=== PATIENT | male | born 1980 | race African-American/Black ===

== ENCOUNTER 2017-01-25 20:18 | Inpatient (IN) ==
[2017-01-25] MEDS ORDERED: FUROSEMIDE 100 MG/10 ML VIAL IV STA (21:34)
[2017-01-25] MEDS ORDERED: ALBUTEROL/IPRATROPIUM 3 ML NEB RESP TX STA (21:34)
[2017-01-25] MEDS ORDERED: ONDANSETRON 4 MG/2 ML VIAL IM STA (21:34)
--- NOTE | 2017-01-25 21:38 | EKG Report ---
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
--- NOTE | 2017-01-25 21:38 | Emergency Department Note ---
Arrival - Arrival Chief Complaint: Shortness of Breath Stated Complaint: sob ED Nursing Triage Note: pt to triage c.o sob since last week. pt was seen in [place] last week. pt states he was told he had chf and started on lasix. pt has bilateral ext swelling . pt states he is unable to lye flat Mode of Arrival: Ambulatory Limitations: No Limitations Source: Patient Time Seen by Provider: 01/25/17 21:34 - History of Present Illness HPI Narrative: This 37-year-old black male presents with 1 month of progressive orthopnea, PND , pedal edema, and wheeze. He was seen last week at [place] and diagnosed with congestive heart failure and begun on diuretics; however, he states that the oral diuretics have not been as effective as the IV. He currently is sitting upright and still short of breath. Onset (ago): month(s) (Patient presents 1 month post onset of symptoms) Home Medications: Home Medications Medication Instructions Recorded Confirmed Type Furosemide Tab [Lasix Tab] 40 mg PO DAILY 01/25/17 01/25/17 History Potassium Chloride [Klor-Con M20] 20 meq PO DAILY 01/25/17 01/25/17 History Review of System - Review of System 12 point system: reviewed and no additional remarkable complaints except as stated - Review of System Constitutional: Present: as per HPI Respiratory: Present: as per HPI Cardiovascular: Present: as per HPI Medical,Surgical,& Family Hx - Medical History Cardio: History of: CHF (recently diagnoses), Hypertension - Surgical History Cardiac Surgeries: Sugical HX of: Cardiac Catheterization - Social History Smoking Status: Never smoker Frequency of Alcohol Use: None Type of Drug Use: None Exam Physical Examination: GENERAL: Well developed, well nourished black male in no acute distress. HEENT: Normocephalic. No trauma. Moist mucous membranes. EOMI. PERRLA. ENT NML NECK: Supple. No adenopathy. JVD to the angle of the jaw sitting up CARDIAC: Regular. No murmurs. Heart rate 98 CHEST: Scattered basilar inspiratory rales and occasional expiratory wheeze. No respiratory distress. O2 sat 99% ABDOMEN: Soft. Nontender. Active bowel sounds. EXTREMITIES: No trauma. Normal ROM. 2+ brawny pedal edema. SKIN: No diaphoresis. No rash. NEURO: Alert. Neuro intact. No focal deficits. Vital Signs: Vital Signs Temperature 97.8 F 05/15/17 20:21 Pulse Rate 102 H 01/25/17 22:37 Respiratory Rate 16 01/25/17 22:37 Blood Pressure 102/61 01/25/17 20:21 O2 Sat by Pulse Oximetry 95 01/25/17 22:37 Course - Reevaluation(s) Reevaluation #1: Discussed with patient the need for hospitalization given his congestive failure and renal problems. - Consultations Consultation #1: Discussed with the hospitalist service who will admit for further evaluation and treatment. Results - Labs CBC & BMP: 01/25/17 22:08 01/25/17 22:08 - Impressions EKG sinus tachycardia at 112 with normal MO interval and QRS duration. Left atrial enlargement noted as well as unifocal occasional PVCs. Diffuse nonspecific ST changes. No acute injury pattern noted. - Diagnostic Findings Procedure: Chest x-ray: image reviewed by me, report reviewed by me (Marked cardiomegaly with pulmonary venous hypertension) Disposition Clinical Impression: Congestive heart failure, Renal insufficiency, Hypertension Case discussed with: patient Disposition: Still a Patient Condition: Stable Time of Disposition: 23:22
[2017-01-25] MEDS ORDERED: FUROSEMIDE 100 MG/10 ML VIAL ONE (21:52)
[2017-01-25] MEDS ORDERED: ONDANSETRON 4 MG/2 ML VIAL ONE (21:52)
--- NOTE | 2017-01-25 22:10 | XRay Report ---
XR chest 2V Indication: Shortness of breath Comparison: 20 August 2011 Findings: The heart and mediastinum are stable in size and configuration. The pulmonary vascularity is slightly increased with bilateral increased interstitial lung density. No other lung infiltrates, effusions, pneumothorax or other abnormality is demonstrated. Impression: Findings suggest mild cardiac decompensation. PROCEDURE INTERPRETED AT [facility] DEPARTMENT OF RADIOLOGY Final Report Signed by: Dr. Elliott Lew
[2017-01-25 22:21] LABS: Basophils % 0.4 % (0.0-0.8); Eosinophils # 0.1 10*3/uL (0.0-0.87); Eosinophils % 1.1 % (0.00-10.9); Hemoglobin 15.7 GM/DL (14.0-18.0); Immature Granulocytes % 0.2 %; Immature Granulocytes Absolute 0.01 #; Lymphocytes # 2.2 10*3/uL (1.4-4.0); Lymphocytes % 47.9 % (21.2-54.2); Mean Corpuscular HGB Conc 33.4 GM/DL (32-36); Mean Corpuscular Hemoglobin 30 PG (27-34); Mean Corpuscular Volume 88.5 FL (87-102); Mean Platelet Volume 10.6 FL (9.6-12.0); Monocytes # 0.4 10*3/uL (0.11-0.8); Monocytes % 8.8 % (1.7-12.7); Neutrophils # 1.9 10*3/uL (1.4-7.4); Neutrophils % 41.6 % (38.7-73.9); Platelet Count 250 T/CUMM (130-400); Red Blood Count 5.31 MC/CUMM (3.8-5.5); Red Cell Distribution Width 17.2 % (9.3-17.3); White Blood Count 4.6 T/CUMM (4-12)
[2017-01-25 22:31] LABS: INR 1.2; PT Patient Result 12.5 SECS; Partial Thromboplastin Time 29.4 SECS (0-40)
[2017-01-25 22:47] LABS: Alanine Aminotransferase 37 U/L (16-61); Albumin 3.3 G/DL (3.4-5.0); Alkaline Phosphatase 82 U/L (45-117); Aspartate Amino Transferase 18 U/L (0-37); Blood Urea Nitrogen 20 MG/DL (7-18); Calcium 9.3 MG/DL (8.5-10.1); Glucose 99 MG/DL (74-106); Sodium 143 MMOL/L (136-145); Total Protein 6.6 G/DL (6.4-8.3)
[2017-01-25 22:48] LABS: Troponin I Only 0.127 NG/ML (0.00-0.045)
[2017-01-25] MEDS ORDERED: ONDANSETRON 4 MG/2 ML VIAL IV PRN (23:21)
--- NOTE | 2017-01-25 23:33 | Hospitalist History & Physical ---
Assessment and Plan (1) Acute on chronic congestive heart failure Status: Acute Assessment and plan: Admit to telemetry. Consult cardiology. Echocardiogram in a.m. IV Lasix, Aldactone. Start beta-hansel and hydralazine. Add nitroglycerin paste for preload reduction. Check lipid panel, TSH and hemoglobin A1c for further risk stratification. Serial cardiac enzymes. Current Visit: Yes Qualifiers: Congestive heart failure type: unspecified congestive heart failure type Qualified Code(s): I50.9 - Heart failure, unspecified (2) Uncontrolled hypertension Status: Acute Current Visit: Yes (3) Chronic kidney disease Status: Acute Assessment and plan: Creatinine is 2.2 With a BUN of 20-suggesting chronic kidney disease versus acute renal failure Current Visit: Yes Qualifiers: Chronic kidney disease stage: stage 2 (mild) Qualified Code(s): N18.2 - Chronic kidney disease, stage 2 (mild) (4) Noncompliance Status: Chronic Current Visit: Yes (5) Elevated troponin Status: Acute Assessment and plan: Likely secondary to heart strain from congestive heart failure. No evidence of acute or ongoing ischemia. Chest pain-free. Consult cardiology. Start aspirin and DVT prophylaxis Lovenox. Serial cardiac enzymes. Further recommendations depend on his response to therapy. Current Visit: Yes History of Present Illness Chief complaint: Shortness of breath and swelling History of present illness: Mr. Villanueva is a 37 year old black male presents with 1 month of progressive orthopnea, PND, pedal edema, and wheezing. He was seen last week at [place] and diagnosed with congestive heart failure and begun on diuretics; however, he states that the oral diuretics have not been as effective as the IV. He currently is sitting upright and still short of breath. He gives a history of poorly controlled hypertension and has been noncompliant with medications. He does not have a primary care physician and has been getting his medications refilled in the emergency department. He states he was taking metoprolol, lisinopril, hydralazine, Norvasc, and was started on Lasix and potassium in the ER approximately 1 week ago. He states the lower extremity edema has been progressively worsening and goes all the way up to his abdomen. He is visibly short of breath and anxious. He gives a family history of hypertension and renal disease. His father was on dialysis and required renal transplant. I suspect this is acute on chronic manifestations of his poorly controlled hypertension leading to chronic kidney disease and significant fluid retention. I have been asked to admit him to the hospital for further evaluation and workup. His home medication list is incomplete and only includes the Lasix and potassium supplement. He was unable to give me doses of his other home medications however he has not had them in several weeks. The patient also reports a loop recorder implantation done approximately 2 years ago for syncope. This is a [employer] brand loop recording device. It has not been interrogated since its placement according to the patient. Home Medications Medication Instructions Recorded Confirmed Type Furosemide Tab [Lasix Tab] 40 mg PO DAILY 01/25/17 01/25/17 History Potassium Chloride [Klor-Con M20] 20 meq PO DAILY 01/25/17 01/25/17 History Medical,Surgical,& Family Hx - Medical History Cardio: History of: CHF (recently diagnoses), Hypertension - Surgical History Cardiac Surgeries: Sugical HX of: Cardiac Catheterization - Social History Smoking Status: Former smoker Have you smoked in the last 12 months: Yes (Quit smoking 2-3 weeks ago) Frequency of Alcohol Use: None Type of Drug Use: None Lives With:: Alone Functional capacity: independent ambulation 12 point system: reviewed and no additional remarkable complaints except as stated - Cardiovascular Cardiovascular: Present: as per HPI, dyspnea, dyspnea on exertion, edema, orthopnea, PND Exam - Constitutional Vitals: Period Temp Pulse Resp BP Sys/Hurtado Pulse Ox Last 24 Hr 97.8 F 98-102 16-20 102/61 95-99 Exam: Constitutional System: Mild distress. No tremulousness. Head: Normocephalic, atraumatic. Ears, Nose and Throat System: No pain or tenderness. No epistaxis or discharge Eyes System: Pupils equal, round, and reactive. Extraocular muscles intact. Neck: Supple, without adenopathy, positive jugular venous distention. No thyromegaly, neck mass, or prior surgery apparent. Respiratory System: Chest rales at the bases to auscultation. Cardiovascular System: Heart with regular rate and rhythm. No murmur. GI System: Abdomen soft, nontender. Normo active bowel sounds present. Musculoskeletal System: limbs with bilateral pitting pedal edema. Full distal pulses. Neurological System: No discernable sensory deficit. No aphasia Psychiatric System: Conversation is rational Results - Labs CBC & BMP: 01/25/17 22:08 01/25/17 22:08 Lab Results: I have reviewed the past 24 hour labs - Diagnostic Findings Procedure: Chest x-ray: image reviewed by me, report reviewed by me
[2017-01-26 00:01] LABS: Apearance,Urine CLEAR (Clear); Bilirubin,Urine Negative (Negative); Blood, Urine Negative (Negative); Glucose,Urine (UA) Negative (Negative); Hyaline Casts,Urine 3 /LPF (0-3); Ketones,Urine Negative (Negative); Mucus,Urine Occasional /LPF (Occasional); Nitrite,Urine Negative (Negative); Protein,Urine 100 MG/DL; RBC,Urine 1 /HPF (0-4); Squamous Epithelial Cell,Urine Occasional /HPF (0-10); Urine Color Straw (Yellow); Urine Specific Gravity 1.004 (1.001-1.035); Urine Urobilinogen < 2.0 EU/DL (0.2-1.0); WBC,Urine <1 /HPF (0-6)
[2017-01-26 00:07] LABS: Barbiturates Screen,Urine Negative (Negative); Benzodiazepines Screen,Urine Negative (Negative); Cannabinoid Screen,Urine Negative (Negative); Opiate Screen,Urine Negative (Negative); Phencyclidine Screen,Urine Negative (Negative)
[2017-01-26] MEDS: SPIRONOLACTONE 25 MG TABLET PO SCH ×3 (00:50→21:43)
[2017-01-26] MEDS: NITROGLYCERIN 2% OINT 1 INCH/GM PACK TOP SCH ×4 (00:50→21:43)
[2017-01-26] MEDS: ENOXAPARIN 40 MG/0.4 ML SYRINGE SUBCUT SCH (00:50)
[2017-01-26 04:18] LABS: Basophils % 0.7 % (0.0-0.8); Eosinophils # 0.1 10*3/uL (0.0-0.87); Eosinophils % 1.2 % (0.00-10.9); Hematocrit 42.1 VOL% (42.0-52.0); Hemoglobin 14.2 GM/DL (14.0-18.0); Lymphocytes # 1.9 10*3/uL (1.4-4.0); Lymphocytes % 44.6 % (21.2-54.2); Mean Corpuscular HGB Conc 33.7 GM/DL (32-36); Mean Corpuscular Hemoglobin 29 PG (27-34); Mean Platelet Volume 10.4 FL (9.6-12.0); Monocytes # 0.4 10*3/uL (0.11-0.8); Monocytes % 8.1 % (1.7-12.7); Neutrophils % 45.4 % (38.7-73.9); Platelet Count 217 T/CUMM (130-400); Red Blood Count 4.84 MC/CUMM (3.8-5.5); Red Cell Distribution Width 16.7 % (9.3-17.3); White Blood Count 4.3 T/CUMM (4-12)
[2017-01-26 04:49] LABS: Free T4 (Free Thyroxine) 1.35 NG/DL (0.76-1.46)
[2017-01-26 04:51] LABS: Troponin I Only 0.105 NG/ML (0.00-0.045)
[2017-01-26 04:54] LABS: Albumin 2.8 G/DL (3.4-5.0); Bilirubin,Total 1.1 MG/DL (0.2-1.0); Calcium 8.8 MG/DL (8.5-10.1); Magnesium 1.9 MG/DL (1.8-2.4); Potassium 3.8 MMOL/L (3.5-5.1); Risk Ratio 4.11; Thyroid Stimulating Hormone 1.74 uIU/ml (0.358-3.74); Total Protein 5.7 G/DL (6.4-8.3); VLDL CHOLESTEROL 15.6 MG/DL
--- NOTE | 2017-01-26 07:15 | Ultrasound Report ---
Exam: US venous doppler LE BI Indication: Shortness of breath leg pain swelling Date: 01/26/2017 4:00 AM Findings: Grayscale color flow duplex/Doppler imaging and spectral analysis waveform imaging was performed with real-time ultrasound with image stored and captured. The right common femoral, superficial femoral, popliteal saphenous veins are patent with normal augmentation and compression. There is no evidence of popliteal or Byrne's cyst. Normal wave form analysis present. Normal color flow The left common femoral, superficial femoral, popliteal saphenous veins are patent with normal augmentation and compression. There is no evidence of popliteal or Byrne's cyst. Normal wave form analysis present. Normal color flow Impression: 1. No DVT PROCEDURE INTERPRETED AT [facility] DEPARTMENT OF RADIOLOGY Final Report Signed by: Dr. Tim Tapia
[2017-01-26] MEDS: FUROSEMIDE 40 MG/4 ML VIAL IV SCH ×2 (07:58→16:03)
[2017-01-26] MEDS: ASPIRIN EC 81 MG TABLET PO SCH (08:02)
[2017-01-26] MEDS: PANTOPRAZOLE 40 MG TABLET PO SCH (08:02)
--- NOTE | 2017-01-26 08:41 | XRay Report ---
Exam: XR chest 1V Date: 01/26/2017 7:47 AM Comparison: 01/25/2017 Indication: Chest pain Technique:[Portable AP sitting chest] Findings: Stable cardiomegaly and left loop recorder. Progressive diffuse parenchymal findings especially at the lung bases with larger small pleural effusions. Prominent vasculature with degenerative changes. Impression: Progressive CHF with increased atelectasis at the lung bases and larger small pleural effusions. Stable cardiomegaly and left loop recorder. PROCEDURE INTERPRETED AT [facility] DEPARTMENT OF RADIOLOGY Final Report Signed by: Dr. Radha Manzanares
--- NOTE | 2017-01-26 08:53 | EKG Report ---
Stationary ECG Study [facility] Test Date: 01/26/2017 7:30:47 AM Pat Name: YANA SCHAFFER Department: Room: 269 Gender: M Hand Model: KARTHIK : 1980 Requested by: Jovon De La Cruz Order Number: [id number] Reading MD: EVERETT ELLIS Intervals [place] Rate: 103 P: 44 [place]: 185 QRS: 14 QRSD: 87 T: 52 QT: 358 QTc: 418 Interpretive Statements SINUS TACHYCARDIA WITH OCCASIONAL VENTRICULAR PREMATURE COMPLEXES NONSPECIFIC T-WAVE ABNORMALITY Electronically Signed On 01-26-17 18:27:37 CDT by EVERETT ELLIS [email or web address]
[2017-01-26] MEDS ORDERED: CARVEDILOL 3.125 MG TABLET PO SCH (09:00)
[2017-01-26] MEDS ORDERED: ACETAMINOPHEN 325 MG TABLET PO PRN (09:50)
--- NOTE | 2017-01-26 10:07 | EKG Report ---
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
--- NOTE | 2017-01-26 14:43 | Cardiology Consult Note ---
Kermit Murphy Vanessa, RN, am scribing for, and in the presence of, Chilo Campbell MD 14:43. Assessment and Plan - Time spent with patient Time spent with patient: Greater than 30 minutes (Due to assessment, planning, documentation, and medication review) (1) Acute on chronic congestive heart failure Status: Acute Current Visit: Yes Qualifiers: Congestive heart failure type: unspecified congestive heart failure type Qualified Code(s): I50.9 - Heart failure, unspecified (2) Chronic kidney disease Status: Chronic Current Visit: Yes Qualifiers: Chronic kidney disease stage: stage 2 (mild) Qualified Code(s): N18.2 - Chronic kidney disease, stage 2 (mild) (3) Elevated troponin Status: Acute Current Visit: Yes (4) Uncontrolled hypertension Status: Chronic Current Visit: Yes (5) Noncompliance Status: Chronic Current Visit: Yes History of Present Illness - Data of Consult Patient: new to practice Consult date: 01/26/17 Requesting Physician: Jovon De La Cruz - Consult Narrative Reason for consult: CHF, abnormal CTNI History of present illness: PRIMARY TWIST TESTER: NONE ([facility] PER DR. ONTIVEROS IN 2009) PCP:NONE CARDIOLOGY CONSULT NOTE: CHF, UNCONTROLLED HTN Mr. Villanueva is a 37 year old black male not routinely followed by cardiology. Risk factors significant for: uncontrolled hypertension, obesity, tobacco use. Past medical history includes hypertension, chronic renal insufficiency, and medical noncompliance. He denies a family history of coronary artery disease, but reports both mother and father had hypertension. His mom at age 71 due to cancer, and his father at age 45 due to kidney failure. He has had implantable loop recorder placed per Dr. Yee at [place] [facility] "a few years ago", last was checked approximately 1 year ago without abnormal finding per patient report. Patient had left heart catheterization and November [address] Ontiveros due to recurrent episodes of chest pain with a normal SPECT scan 8 months prior. Cardiac cath revealed large and widely patent right and left coronary artery systems, no mitral regurgitation, no aortic valve gradient , and normal systolic function with ejection fraction of 55%. He presented to [facility] ED on the evening of 01/25 with complaining of worsening in his severity of shortness of breath for the past week. One week prior to presentation at emergency room, he had been evaluated at [facility] and given a new diagnosis of CHF. At time of his evaluation at [facility], he reported progressive orthopnea, PND, wheezing, and increase in LE edema over the course of 1 month. Reports that he was started on by mouth Lasix and that he has taken these as prescribed with minimal urine output and not much relief. EKG was negative for acute ischemic change. Chest x-ray with moderate cardiomegaly and increased pulmonary congestion. Patient was given Lasix 80 mg IV 1 dose and ER, and he reported noticeable increase in urine output. He was admitted to telemetry per hospital medicine. Cardiology consulted for further evaluation of CHF and abnormal troponin 2 noted at 0.127, 0.102. Repeat chest x-ray this morning with some increasing pulmonary congestion. BNP 1289. Earlier today, he reported he was experiencing some chest pain during exam. Heart alert protocol initiated, EKG obtained and reviewed per Dr. Campbell , and it was found to be no STEMI. Upon further exam, patient experiencing chest wall pain, and tenderness was reproducible. Creatinine today 2.0 with GFR 64. He tells me he has been followed by Dr. Ro in the past for chronic renal insufficiency. Patient seen and examined. He is not acutely distressed at this time, but does appear to have some mild shortness of breath and he has orthopnea. Admits to chest tightness with dyspnea on exertion which has progressively worsened over the past month. Reports he started to notice an increase in swelling of his feet, and he was unable to wear his tennis shoes, and swelling has since progressed throughout bilateral lower extremities, and into the lower abdominal area. Bilateral lower extremities noted to be tight, tender to touch, 2+ pitting edema. He reports he is having great difficulty with ambulation due to discomfort. He is unsure of what medications he takes for hypertension, and he does admit to not taking them "the way I should". Neither prescription bottles nor medication list is available. Nitro-Bid patch is noted. His blood pressure is uncontrolled, SBP ranging 140 -160 mmHg, and DBP greater than 100 mmHg. Sinus tachycardia with pulse rate 100-110 without disturbance. Denies cough, fever, chills. No recent or current hematuria, hematemesis, change in color of bowel movement. Labs reviewed. As above. Sodium 143. Potassium 3.8. Magnesium is 1.9. UA negative. Echocardiogram was obtained this morning and will be reviewed. CC: Alisha Montero MD - Home Medications and Allergies Home Medications: Home Medications Medication Instructions Recorded Confirmed Type Furosemide Tab [Lasix Tab] 40 mg PO DAILY 01/25/17 01/25/17 History Potassium Chloride [Klor-Con M20] 20 meq PO DAILY 01/25/17 01/25/17 History Allergies/Adverse Reactions: Allergies Allergy/AdvReac Type Severity Reaction Status Date / Time No Known Allergies Allergy Unverified 01/26/17 00:29 - Constitutional Constitutional: Present: fatigue, weakness, weight gain. Absent: anorexia, chills, daytime sleepiness, frequent falls, night sweats, stops breathing during sleep, weight loss - EENT Eyes: Absent: blurry vision, loss of vision Ears: Absent: decreased hearing Nose, mouth and throat: Absent: dysphagia, epistaxis, nasal congestion, neck pain, throat swelling, vertigo - Cardiovascular Cardiovascular: Present: chest pain with activity, dyspnea, dyspnea on exertion , edema, orthopnea, PND. Absent: chest pain at rest, claudication, diaphoresis , radiating jaw, neck or arm pain, lightheadedness, palpitations - Respiratory Respiratory: Absent: cough - Gastrointestinal Gastrointestinal: Present: abdominal pain. Absent: dysphagia, hematemesis, hematochezia, melena, nausea, vomiting - Genitourinary Genitourinary: Present: dysuria. Absent: as per HPI, flank pain, hematuria - Musculoskeletal Musculoskeletal: Absent: arthralgias, limited range of motion - Neurological Neurological: Absent: abnormal gait, abnormal speech, confusion, dizziness, syncope, tremor(s) - Psychiatric Psychiatric: Absent: anxiety, confusion, depression - Endocrine Endocrine: Absent: cold intolerance, heat intolerance - Hematologic/Lymphatic Hematologic/Lymphatic: Absent: easy bleeding, easy bruising Medical,Surgical,& Family Hx - Medical History Cardio: History of: Cardiac Dysrhythmia (1 episode a-fib (self limiting) remote past w/ pain & uncontrolled HTN), CHF (recently diagnoses), Hypertension ( internal heart monitor to left chest) No history of: CAD, [place], Pacemaker, PVD, Valvular Heart Disease Psychological: No history of: Anxiety Disorders, ADHD, Behavior Problems, Bipolar Disorder, Depression, Previous Suicide Attempt, Psychiatric/Substance Abuse Tx, Schizophrenia, Violent Behavior, Psychiatric Problems Neurology: No history of: Dementia, TIA Endocrine: No history of: Diabetes Mellitus (IDDM), Diabetes Mellitus (NIDDM), Dyslipidemia, Thyroid Disorder Rheumatology: No history of;: Rheumatoid Arthritis Respiratory: History of: Pneumonia No history of: Obstructive Sleep Apnea Renal: History of: Renal Failure No history of: Dialysis Gastrointestinal: No history of: GERD, Gastrointestinal Bleed Musculoskeletal: History of: Back/Neck Problems Hematology: No history of: Anemia, Blood Transfusion Reaction Other: No history of: Anesthesia Reactions - Surgical History Cardiac Surgeries: Sugical HX of: Cardiac Catheterization Patient Denies: Carotid Endarterectomy, Internal Defibrillator Thoracic Surgeries: Patient denies;: Organ Transplant - Family History Family History: Reports;: Family Cancer (mother (stomach cancer)), Family Hypertension (mother and father) Denies;: Family Anesthesia Reaction - Social History Smoking Status: Current every day smoker Frequency of Alcohol Use: None Type of Drug Use: None Physical Examination Vital Signs Temp Pulse Resp BP Pulse Ox 97.8 F 98 H 20 102/61 99 01/25/17 20:21 01/25/17 20:21 01/25/17 20:21 01/25/17 20:21 01/25/17 20:21 General: Present: Other (Mild distress, overweight) HEENT: Present: PERRL, Normocephaly, Mucus Membranes Moist. Absent: Pallor, Oral Lesions Cardiac: Present: Regular Rhythm, No Murmur, Tachycardia. Absent: Audible Murmur, Bradycardia Lungs: Present: Bibasilar Rales, Wheezes (Mild expiration wheeze mid lung field) , No Rhonchi Neuro: Present: Grossly Intact. Absent: Numbness, Tingling, Weakness, Resting Tremor, Essential Tremor Abdomen: Present: Soft, Tender, Other (Hypoactive bowel sounds). Absent: Firm, Distended Skin: Present: Clear. Absent: Rash, Suspicious Lesions, Bruising Musculoskeletal: Present: Decreased Range of Motion Extremities: Present: No Cyanosis, Normal Upper Extr. Pulses (3+ bilateral), Normal Lower Extr. Pulses (1-2+ bilaterally; difficult palpation R/T edema), +2 Edema (Bilateral lower extremities; tight, tender to touch), Capillary Refill ( Normal) Result/EKG - Labs CBC & BMP: 01/26/17 04:06 01/26/17 04:06 Lab Results: I have reviewed the past 24 hour labs Labs: Laboratory Results - last 24 hr 01/26/17 01/26/17 01/26/17 04:06 04:06 04:06 WBC 4.3 RBC 4.84 Hgb 14.2 Hct 42.1 MCV 87.0 MCH 29 MCHC 33.7 RDW 16.7 Plt Count 217 MPV 10.4 Neut % (Auto) 45.4 Lymph % (Auto) 44.6 [place] % (Auto) 8.1 Eos % (Auto) 1.2 Baso % (Auto) 0.7 Neut # (Auto) 2.0 Lymph # (Auto) 1.9 [place] # (Auto) 0.4 Eos # (Auto) 0.1 Baso # (Auto) 0.0 Immature Gran % 0.0 Nucleated RBC % 0.0 Immature Gran # 0.00 Nucleated RBCs # 0.00 Sodium 143 Potassium 3.8 Chloride 108 H Carbon Dioxide 25 Anion Gap 13.8 BUN 21 H Creatinine 2.00 H GFR Calculation 64 BUN/Creatinine Ratio 10.00 Glucose 115 H Calculated Osmolality 288.0 Calcium 8.8 Magnesium 1.9 Total Bilirubin 1.10 H AST 18 ALT 30 Alkaline Phosphatase 70 Total Creatine Kinase CK-MB (CK-2) Troponin I B-Natriuretic Peptide 1289 H Total Protein 5.7 L Albumin 2.8 L Globulin 2.9 Albumin/Globulin Ratio 0.9 L Triglycerides 78 Cholesterol 152 LDL Cholesterol 105.0 VLDL Cholesterol 15.6 HDL Cholesterol 37 L Heart Disease Risk Ratio 4.11 Free T4 TSH 3rd Generation 1.740 01/26/17 01/26/17 04:06 07:50 WBC RBC Hgb Hct MCV MCH MCHC RDW Plt Count MPV Neut % (Auto) Lymph % (Auto) [place] % (Auto) Eos % (Auto) Baso % (Auto) Neut # (Auto) Lymph # (Auto) [place] # (Auto) Eos # (Auto) Baso # (Auto) Immature Gran % Nucleated RBC % Immature Gran # Nucleated RBCs # Sodium Potassium Chloride Carbon Dioxide Anion Gap BUN Creatinine GFR Calculation BUN/Creatinine Ratio Glucose Calculated Osmolality Calcium Magnesium Total Bilirubin AST ALT Alkaline Phosphatase Total Creatine Kinase 57 D CK-MB (CK-2) < 1.0 Troponin I 0.105 H 0.102 H B-Natriuretic Peptide Total Protein Albumin Globulin Albumin/Globulin Ratio Triglycerides Cholesterol LDL Cholesterol VLDL Cholesterol HDL Cholesterol Heart Disease Risk Ratio Free T4 1.35 TSH 3rd Generation - Diagnostic Findings Procedure: Chest x-ray: image reviewed by me, report reviewed by me - EKG EKG results: interpreted by me, no acute changes EKG shows: sinus rhythm Adrian Murphy Wesley, MD, personally performed the services described in this documentation, ascribed by Rupinder Carmen RN in my presence, and it is both accurate and complete 443 .
[2017-01-26] MEDS ORDERED: cloNIDine 0.1 MG TABLET PO PRN (14:45)
[2017-01-26] MEDS: ISOSORBIDE MONONITRATE 30 MG TABLET PO SCH (14:55)
--- NOTE | 2017-01-26 16:14 | Hospitalist Progress Note ---
Assessment and Plan (1) Acute on chronic congestive heart failure Status: Acute Assessment and plan: Continue lasix iv 40 bid monitor daily weights F/u echo Cardiology consulted Current Visit: Yes Qualifiers: Congestive heart failure type: unspecified congestive heart failure type Qualified Code(s): I50.9 - Heart failure, unspecified (2) Uncontrolled hypertension Status: Chronic Assessment and plan: Cardiology has made changes to his regimen Carvedilol, isosorbide mononitrate and hydralazine Current Visit: Yes (3) Chronic kidney disease Status: Chronic Assessment and plan: Unknown baseline Monitor closely, especially on lasix Current Visit: Yes Qualifiers: Chronic kidney disease stage: stage 2 (mild) Qualified Code(s): N18.2 - Chronic kidney disease, stage 2 (mild) (4) Noncompliance Status: Chronic Current Visit: Yes (5) Elevated troponin Status: Acute Assessment and plan: Cardiology assisting Current Visit: Yes Hospitalist: Subjective Interval history: No acute events overnight. This morning complaining of chest pain, ekg without stemi, troponin unchanged. Chest pain was reproducible with pressure. This afternoon he denies chest pain, complains of lower extremity pain due to swelling. Noted that dopplers are negative for dvt. BNP is elevated, echo is pending. Cardiology has been consulted. Patient also noted to have CHANDANA, unknown baseline. He does report to me a history of kidney problems. This very well could be chronic especially given his history of uncontrolled hypertension. Will monitor closely for now. Will need nephrology outpatient for sure, possibly inpatient pending progression. Exam - Constitutional Vitals: Period Temp Pulse Resp BP Sys/Hurtado Pulse Ox Last 24 Hr 97.2 F-98.9 F 90-115 16-20 113-157/70-123 93-100 General appearance: over weight - Head Head exam: Present: normocephalic, atraumatic - Eye Eye exam: Present: EOMI Pupils: Present: RENÉ - ENT ENT exam: Present: normal exam - Neck Neck exam: Present: normal inspection - Respiratory Respiratory exam: Present: clear to auscultation bilaterally. Absent: rhonchi, wheezes - Cardiovascular Cardiovascular exam: Present: regular rate and rhythm - GI/Abdominal GI/Abdominal exam: Present: normal bowel sounds, soft. Absent: tenderness, rebound - Extremities Exam Extremities exam: Present: edema, other (tenderness) - Back Exam Back exam: Present: normal inspection - Neurological Exam Neurological exam: Present: alert, oriented X3 - Psychiatric Psychiatric exam: Present: normal affect, normal mood - Skin Skin exam: Present: warm, intact Results - Labs CBC & BMP: 01/26/17 04:06 01/26/17 04:06
[2017-01-26] MEDS: CARVEDILOL 6.25 MG TABLET PO SCH (21:43)
[2017-01-27] MEDS: ENOXAPARIN 40 MG/0.4 ML SYRINGE SUBCUT SCH ×2 (00:30→23:41)
[2017-01-27] MEDS: NITROGLYCERIN 2% OINT 1 INCH/GM PACK TOP SCH ×3 (04:28→20:53)
[2017-01-27 05:28] LABS: Basophils % 0.3 % (0.0-0.8); Eosinophils % 1.1 % (0.00-10.9); Hematocrit 39.8 VOL% (42.0-52.0); Hemoglobin 13.5 GM/DL (14.0-18.0); Immature Granulocytes % 0.3 %; Immature Granulocytes Absolute 0.01 #; Lymphocytes # 1.4 10*3/uL (1.4-4.0); Lymphocytes % 37.1 % (21.2-54.2); Mean Corpuscular HGB Conc 33.9 GM/DL (32-36); Mean Corpuscular Hemoglobin 29 PG (27-34); Mean Corpuscular Volume 86.1 FL (87-102); Mean Platelet Volume 11.1 FL (9.6-12.0); Monocytes # 0.3 10*3/uL (0.11-0.8); Monocytes % 7.8 % (1.7-12.7); Neutrophils % 53.4 % (38.7-73.9); Platelet Count 224 T/CUMM (130-400); Red Blood Count 4.62 MC/CUMM (3.8-5.5); Red Cell Distribution Width 16.7 % (9.3-17.3); White Blood Count 3.7 T/CUMM (4-12)
[2017-01-27 06:01] LABS: Calcium 8.1 MG/DL (8.5-10.1); Osmolality,Calculated 285.3 MOS/KG (273-304); Potassium 3.8 MMOL/L (3.5-5.1)
--- NOTE | 2017-01-27 07:53 | EKG Report ---
Stationary ECG Study [facility] Test Date: 01/27/2017 7:53:21 AM Pat Name: YANA SCHAFFER Department: Room: 269 Gender: M Lead Burner: KARTHIK : 1980 Requested by: Chilo Campbell Order Number: [id number] Reading MD: JUANITA MARSHALL Intervals [place] Rate: 82 P: 46 PA: 200 QRS: 24 QRSD: 90 T: -7 QT: 401 QTc: 440 Interpretive Statements SINUS RHYTHM at 82 bpm LEFT ATRIAL ENLARGEMENT NONSPECIFIC T-WAVE ABNORMALITY Electronically Signed On 01-27-17 08:54:46 CDT by JUANITA MARSHALL [email or web address]
[2017-01-27] MEDS: FUROSEMIDE 40 MG/4 ML VIAL IV SCH ×3 (08:54→20:54)
[2017-01-27] MEDS: SPIRONOLACTONE 25 MG TABLET PO SCH (08:56)
[2017-01-27] MEDS: ASPIRIN EC 81 MG TABLET PO SCH (08:56)
[2017-01-27] MEDS: CARVEDILOL 6.25 MG TABLET PO SCH (08:57)
[2017-01-27] MEDS: ISOSORBIDE MONONITRATE 30 MG TABLET PO SCH (08:57)
[2017-01-27] MEDS: PANTOPRAZOLE 40 MG TABLET PO SCH (08:59)
--- NOTE | 2017-01-27 09:32 | Hospitalist Progress Note ---
<Guanakito Felder - Last Filed: 01/27/17 09:30> Assessment and Plan (1) Acute on chronic congestive heart failure Status: Acute Assessment and plan: BNP on yesterday 1289; continue diuresis as ordered. Current Visit: Yes Qualifiers: Congestive heart failure type: unspecified congestive heart failure type Qualified Code(s): I50.9 - Heart failure, unspecified (2) Elevated troponin Status: Acute Current Visit: Yes (3) Chronic kidney disease Status: Chronic Assessment and plan: Worsening in renal function ; BUN-24; Creatinine-2.50; this is likely due to IV Lasix. Nephrology to evaluate. Current Visit: Yes Qualifiers: Chronic kidney disease stage: stage 2 (mild) Qualified Code(s): N18.2 - Chronic kidney disease, stage 2 (mild) (4) Uncontrolled hypertension Status: Chronic Assessment and plan: Blood pressures stable for the most part; spoke with patient in great detail on the importance of medical compliance. He acknowledges the importance of this; will consult SS to evaluate outpatient options for medical care. Current Visit: Yes Hospitalist: Subjective Interval history: Patient seen and examined; no significant overnight events; further decline in renal function; creatinine 2.50 up from 2.0 on yesterday. Exam - Constitutional Vitals: Period Temp Pulse Resp BP Sys/Hurtado Pulse Ox Last 24 Hr 97.3 F-98.9 F 74-96 18-20 103-139/67-101 91-100 General appearance: normal weight, no acute distress - Head Head exam: Present: normal inspection, normocephalic, atraumatic - Eye Eye exam: Present: EOMI. Absent: conjunctival injection Pupils: Present: RENÉ, normal accommodation - ENT ENT exam: Present: normal exam. Absent: normal external ear exam, normal oropharynx - Neck Neck exam: Present: normal inspection. Absent: lymphadenopathy, meningismus, tenderness, thyromegaly - Respiratory Respiratory exam: Present: clear to auscultation bilaterally. Absent: rales, rhonchi, stridor, wheezes - Cardiovascular Cardiovascular exam: Present: bradycardia, regular rate and rhythm. Absent: carotid bruit, diastolic murmur, gallop, JVD, rubs, systolic murmur - GI/Abdominal GI/Abdominal exam: Absent: normal bowel sounds, firm, guarding, mass, soft - Extremities Exam Extremities exam: Present: normal inspection, normal capillary refill, full ROM , edema (trace edema) - Back Exam Back exam: Present: normal inspection - Neurological Exam Neurological exam: Present: alert, oriented X3, CN II-XII intact - Psychiatric Psychiatric exam: Present: normal affect, normal mood - Skin Skin exam: Present: normal color, warm, dry Results - Labs CBC & BMP: 01/27/17 04:33 01/27/17 04:33 Lab Results: I have reviewed the past 24 hour labs <Alisha Montero - Last Filed: 01/27/17 14:18> Assessment and Plan (1) Acute on chronic congestive heart failure Status: Acute Current Visit: Yes Qualifiers: Congestive heart failure type: unspecified congestive heart failure type Qualified Code(s): I50.9 - Heart failure, unspecified (2) Uncontrolled hypertension Status: Chronic Current Visit: Yes (3) Chronic kidney disease Status: Chronic Current Visit: Yes Qualifiers: Chronic kidney disease stage: stage 2 (mild) Qualified Code(s): N18.2 - Chronic kidney disease, stage 2 (mild) (4) Noncompliance Status: Chronic Current Visit: Yes (5) Elevated troponin Status: Acute Current Visit: Yes Hospitalist: Subjective Interval history: Patient seen and examined independently of ALBERTO Felder, agree with assessment and plan as documented. Nephrology and cardiology on board. Changes made to hypertensive medications. Creatinine a little worse today. F/u echo. Exam - Constitutional Vitals: Period Temp Pulse Resp BP Sys/Hurtado Pulse Ox Last 24 Hr 97.3 F-98.8 F 74-91 18-20 103-136/55-74 91-100 Results - Labs CBC & BMP: 01/27/17 04:33 01/27/17 04:33
--- NOTE | 2017-01-27 12:31 | Nephrology Consult Note ---
History of Present Illness Chief complaint: Patient complains of lower extremity swelling and sob for one month History of present illness: Mr. Villanueva is a 37 year old male with a history of hypertension seen by Dr. Ro about 2-1/2 years ago for renal insufficiency. We are asked to see the patient for increased creatinine. The patient was admitted about 2 days ago with a creatinine of 2.2 mg/dL. The patient states he has been having shortness of breath and swelling in his lower extremities for the past month. The shortness of breath occurs both with exertion and occasionally wakes him up at night. The patient denies having swelling in his lower extremities prior to this. The patient has a prescription for Lasix and had been taking this at home however he states it was not making him urinate this past month. The patient was seen by Dr. Ro in the outpatient setting and August 2014 he was noted to have a creatinine of 1.7 mg/dL at that time. The patient has a family history of kidney failure he states his father of kidney failure complications at the age of 45. His father had received a transplant in the past for kidney failure. The patient denies ever having a kidney biopsy. Patient denies any heart disease. The patient does state he smokes cigarettes for about 2 years but quit these about 3 months ago. ROS: Head -positive headaches ENT - denies sore throat Lymphatics - denies lymphadenopathy Hematology -he states he has been coughing up a little blood on occasion Heart - denies chest pain Lungs -positive shortness of breath Abdomen - denies abdominal pain Musculoskeletal - denies arthritis Skin - denies rash Neurology - denies stroke General - denies fever, he states he has had some chills PE: General: in no acute distress Eyes: Pupils are round and reactive, conjunctivae are clear ENT: Nose is clear, O/P is benign Neck: Supple, no thyromegaly Lymphatics: No cervical, supraclavicular or axillary adenopathy Heart: Regular rate and rhythm, he has 2+ edema extending up into his thighs Lungs: Clear to auscultation anteriorly, chest expansion symmetric Abdomen: Soft, normoactive bowel sounds, no hepatomegaly, he has some mild tenderness to palpation in his right lower quadrant Musculoskeletal: No joint erythema or effusions or joint asymmetry Skin: Normal turgor, normal hydration, no rash Neuro/Psych: Alert and cooperative with fair insight Home Medications Medication Instructions Recorded Confirmed Type Furosemide Tab [Lasix Tab] 40 mg PO DAILY 01/25/17 01/25/17 History Potassium Chloride [Klor-Con M20] 20 meq PO DAILY 01/25/17 01/25/17 History Allergies Allergy/AdvReac Type Severity Reaction Status Date / Time No Known Allergies Allergy Unverified 01/26/17 00:29 Medical,Surgical,& Family Hx - Medical History Cardio: History of: Cardiac Dysrhythmia (1 episode a-fib (self limiting) remote past w/ pain & uncontrolled HTN), CHF (recently diagnoses), Hypertension ( internal heart monitor to left chest) No history of: CAD, MA, Pacemaker, PVD, Valvular Heart Disease Psychological: No history of: Anxiety Disorders, ADHD, Behavior Problems, Bipolar Disorder, Depression, Previous Suicide Attempt, Psychiatric/Substance Abuse Tx, Schizophrenia, Violent Behavior, Psychiatric Problems Neurology: No history of: Dementia, TIA Endocrine: No history of: Diabetes Mellitus (IDDM), Diabetes Mellitus (NIDDM), Dyslipidemia, Thyroid Disorder Rheumatology: No history of;: Rheumatoid Arthritis Respiratory: History of: Pneumonia No history of: Obstructive Sleep Apnea Renal: History of: Renal Failure No history of: Dialysis Gastrointestinal: No history of: GERD, Gastrointestinal Bleed Musculoskeletal: History of: Back/Neck Problems Hematology: No history of: Anemia, Blood Transfusion Reaction Other: No history of: Anesthesia Reactions - Surgical History Cardiac Surgeries: Sugical HX of: Cardiac Catheterization Patient Denies: Carotid Endarterectomy, Internal Defibrillator Thoracic Surgeries: Patient denies;: Organ Transplant HEENT Surgeries: Patient denies: Carotid Endarterectomy - Family History Family History: Reports;: Family Cancer (mother (stomach cancer)), Family Hypertension (mother and father) Denies;: Family Anesthesia Reaction - Social History Smoking Status: Former smoker (He states he quit 3 months ago) Frequency of Alcohol Use: None Type of Drug Use: None Exam - Vital Signs Vital signs: Period Temp Pulse Resp BP Sys/Hurtado Pulse Ox Last 24 Hr 97.3 F-98.8 F 74-91 18-20 103-136/55-74 91-100 Results - Labs CBC & BMP: 01/27/17 04:33 01/27/17 04:33 Assessment and Plan (1) Acute renal failure Status: Acute Assessment and plan: This patient's creatinine was 1.7 mg/dL about 2 and half years ago, who on presentation here his creatinine was 2.3 mg/dL, it is increased to 2.5 mg/dL with Lasix administration and antihypertensives. I am going to check a renal ultrasound and quantify his protein leakage with a spot urine microalbumin to creatinine ratio will also check a urine protein electrophoresis. The patient' s urinalysis did not seem to have a very active sediment except for some protein leakage he had 1 red cell per high-power field, will also check a renal ultrasound. Current Visit: Yes (2) Hypertension Status: Acute Assessment and plan: This patient's blood pressure systolic was on presentation was 106, on occasion here it has been around 138 but for the most part it has been in the 100-110 range on the systolic side. With his increasing creatinine with the attempt at diuresis I think we should back off some of his antihypertensives to allow his perfusion pressure to his kidneys to improve. I am going to DC his Coreg and decrease his hydralazine and stopped the Spironolactone. Current Visit: Yes (3) Chronic kidney disease Status: Chronic Current Visit: Yes Qualifiers: Chronic kidney disease stage: stage 2 (mild) Qualified Code(s): N18.2 - Chronic kidney disease, stage 2 (mild) (4) Proteinuria Status: Acute Current Visit: Yes (5) Acute on chronic congestive heart failure Status: Acute Assessment and plan: I am going to increase his Lasix to 3 times a day, will check an echocardiogram Current Visit: Yes Qualifiers: Congestive heart failure type: unspecified congestive heart failure type Qualified Code(s): I50.9 - Heart failure, unspecified
--- NOTE | 2017-01-27 13:41 | Ultrasound Report ---
Exam: US renal Bilateral Date: 01/27/2017 12:20 PM Indication: Acute on chronic renal failure Comparison: 04/16/2010 Findings: Right kidney. 9.9 x 4.3 x 5.8 cm. There is a 10 x 10 x 9.9 mm nodule cyst in the upper pole and 11 x 11 x 13 mm nodule also present. These appear to represent small cyst. No obstructive uropathy with mild increased echogenicity medical renal disease. Normal color flow Left kidney. 10 x 6.3 x 4.5 cm. No hydronephrosis or perinephric fluid collections or focal mass. Mild increased echogenicity. Normal color flow Impression: 1. Small cyst of the right kidney 2. Mild medical renal disease 3. No obstructive uropathy. Ultrasound images were stored and captured PROCEDURE INTERPRETED AT [facility] DEPARTMENT OF RADIOLOGY Final Report Signed by: Dr. Tim Tapia
[2017-01-27 14:21] LABS: Microalbum Ur Quant Random 27.6 MG/L (0-20); Microalbum/Creat Ratio Random 106.2 RATIO (0-30)
--- NOTE | 2017-01-27 15:44 | Cardiology Progress Note ---
Kermit Murphy Vanessa, RN, am scribing for, and in the presence of, Chilo Campbell MD 15:44. Assessment and Plan - Time spent with patient Time spent with patient: Greater than 30 minutes (1) Acute on chronic congestive heart failure Status: Acute Current Visit: Yes Qualifiers: Congestive heart failure type: unspecified congestive heart failure type Qualified Code(s): I50.9 - Heart failure, unspecified (2) Chronic kidney disease Status: Chronic Current Visit: Yes Qualifiers: Chronic kidney disease stage: stage 2 (mild) Qualified Code(s): N18.2 - Chronic kidney disease, stage 2 (mild) (3) Elevated troponin Status: Acute Current Visit: Yes (4) Uncontrolled hypertension Status: Chronic Current Visit: Yes (5) Noncompliance Status: Chronic Current Visit: Yes Cardiology - PN: Subj Interval history: PRIMARY ORTHODONTIST ASSISTANT: NONE ([facility] PER DR. ONTIVEROS IN 2009) PCP:NONE CARDIOLOGY CONSULT NOTE: CHF, UNCONTROLLED HTN SUMMARY: Mr. Villanueva is a 37 year old black male not routinely followed by cardiology. Risk factors significant for: uncontrolled hypertension, obesity, tobacco use. Past medical history includes hypertension, chronic renal insufficiency, and medical noncompliance. He denies a family history of coronary artery disease, but reports both mother and father had hypertension. His mom at age 71 due to cancer, and his father at age 45 due to kidney failure. He has had implantable loop recorder placed per Dr. Yee at [facility] "a few years ago", last was checked approximately 1 year ago without abnormal finding per patient report. Patient had left heart catheterization and November [address] Ontiveros due to recurrent episodes of chest pain with a normal SPECT scan 8 months prior. Cardiac cath revealed large and widely patent right and left coronary artery systems, no mitral regurgitation, no aortic valve gradient , and normal systolic function with ejection fraction of 55%. He presented to [facility] ED on the evening of 01/25 with complaining of worsening in his severity of shortness of breath for the past week. One week prior to presentation at emergency room, he had been evaluated at [facility] and given a new diagnosis of CHF. At time of his evaluation at [facility], he reported progressive orthopnea, PND, wheezing, and increase in LE edema over the course of 1 month. Reports that he was started on by mouth Lasix and that he has taken these as prescribed with minimal urine output and not much relief. EKG was negative for acute ischemic change. Chest x-ray with moderate cardiomegaly and increasing pulmonary congestion. BNP 1289. Patient was given Lasix 80 mg IV 1 dose and ER, and he reported noticeable increase in urine output. He was admitted to telemetry per hospital medicine. Cardiology consulted for further evaluation of CHF and abnormal troponin 2 noted at 0.127, 0.102. JANUARY 27, 2017: Mr. Villanueva's 2D echocardiogram yesterday revealed significant decline in LV function with ejection fraction estimated 20%. Nephrology consulted due to patient's history of chronic renal insufficiency and recent development of congestive heart failure. Dr. Aponte has evaluated patient, and patient is having renal ultrasound this afternoon. Creatinine noticed to be increased from 2.0 to 2.5 today. Patient is less tachycardic today, and pulse rates are in the 70s and 80s, sinus rhythm. No ectopy or arrhythmia. BP has significantly improved, with SBP ranging 105-115 mmHg and DBP ranging 55-75 mmHg. Patient is slowly diuresing. Renal perfusion is down some and we are adjusting meds to get his pressures up to the 140-150 range to help with renal perfusion. We will adjust his antihypertensive medications. Exam (Progress Note) - Constitutional Vitals: Period Temp Pulse Resp BP Sys/Hurtado Pulse Ox Last 24 Hr 97.3 F-98.9 F 74-96 18-20 103-139/67-101 91-100 Exam: General: Present: Other (Mild distress, overweight) HEENT: Present: PERRL, Normocephaly, Mucus Membranes Moist. Absent: Pallor, Oral Lesions Cardiac: Present: Regular Rhythm, No Murmur, Tachycardia. Absent: Audible Murmur, Bradycardia Lungs: Present: Bibasilar Rales, Wheezes (Mild expiration wheeze mid lung field) , No Rhonchi Neuro: Present: Grossly Intact. Absent: Numbness, Tingling, Weakness, Resting Tremor, Essential Tremor Abdomen: Present: Soft, Tender, Other (Hypoactive bowel sounds). Absent: Firm, Distended Skin: Present: Clear. Absent: Rash, Suspicious Lesions, Bruising Musculoskeletal: Present: Decreased Range of Motion Extremities: Present: No Cyanosis, Normal Upper Extr. Pulses (3+ bilateral), Normal Lower Extr. Pulses (1-2+ bilaterally; difficult palpation R/T edema), +2 Edema (Bilateral lower extremities; tight, tender to touch), Capillary Refill ( Normal) Result/EKG - Labs CBC & BMP: 01/27/17 04:33 01/27/17 04:33 Lab Results: I have reviewed the past 24 hour labs Labs: Laboratory Results - last 24 hr 01/27/17 01/27/17 04:33 04:33 WBC 3.7 L RBC 4.62 Hgb 13.5 L Hct 39.8 L MCV 86.1 L MCH 29 MCHC 33.9 RDW 16.7 Plt Count 224 MPV 11.1 Neut % (Auto) 53.4 Lymph % (Auto) 37.1 [place] % (Auto) 7.8 Eos % (Auto) 1.1 Baso % (Auto) 0.3 Neut # (Auto) 2.0 Lymph # (Auto) 1.4 [place] # (Auto) 0.3 Eos # (Auto) 0.0 Baso # (Auto) 0.0 Immature Gran % 0.3 Nucleated RBC % 0.0 Immature Gran # 0.01 Nucleated RBCs # 0.00 Sodium 141 Potassium 3.8 Chloride 104 Carbon Dioxide 26 Anion Gap 14.8 BUN 24 H Creatinine 2.50 H GFR Calculation 49 BUN/Creatinine Ratio 9.00 Glucose 116 H Calculated Osmolality 285.3 Calcium 8.1 L Magnesium 2.0 - EKG EKG results: interpreted by me, no acute changes EKG shows: sinus rhythm I, Chilo Campbell MD, personally performed the services described in this documentation, ascribed by Rupinder Carmen RN in my presence, and it is both accurate and complete [id number] .
[2017-01-27] MEDS: hydrALAZINE 25 MG TABLET PO SCH (20:53)
[2017-01-28 05:44] LABS: Basophils % 0.5 % (0.0-0.8); Eosinophils # 0.1 10*3/uL (0.0-0.87); Eosinophils % 1.4 % (0.00-10.9); Hematocrit 39.1 VOL% (42.0-52.0); Hemoglobin 13.8 GM/DL (14.0-18.0); Immature Granulocytes % 0.2 %; Immature Granulocytes Absolute 0.01 #; Lymphocytes # 1.5 10*3/uL (1.4-4.0); Lymphocytes % 36.5 % (21.2-54.2); Mean Corpuscular HGB Conc 35.3 GM/DL (32-36); Mean Corpuscular Hemoglobin 30 PG (27-34); Mean Platelet Volume 10.3 FL (9.6-12.0); Monocytes # 0.5 10*3/uL (0.11-0.8); Monocytes % 11.3 % (1.7-12.7); Neutrophils # 2.1 10*3/uL (1.4-7.4); Neutrophils % 50.1 % (38.7-73.9); Platelet Count 231 T/CUMM (130-400); Red Cell Distribution Width 16.4 % (9.3-17.3); White Blood Count 4.2 T/CUMM (4-12)
[2017-01-28 06:18] LABS: Albumin 2.8 G/DL (3.4-5.0); Bilirubin,Total 1.2 MG/DL (0.2-1.0); Calcium 8.7 MG/DL (8.5-10.1); Magnesium 1.9 MG/DL (1.8-2.4); Osmolality,Calculated 280.4 MOS/KG (273-304); Phosphorous 4.5 MG/DL (2.5-4.9); Potassium 3.6 MMOL/L (3.5-5.1); Total Protein 5.7 G/DL (6.4-8.3)
--- NOTE | 2017-01-28 07:13 | XRay Report ---
Exam: XR chest 1V portable Date: 01/28/2017 4:00 AM Indication: COPD Comparison: 01/26/2017 Technical:AP chest. Findings: Cardiomegaly is present with a strip recorder over the left chest. Atelectatic change present alveolar densities present in the basilar regions bilaterally. No obvious pneumothorax. The mediastinum and bony structures are intact. Impression: Cardiomegaly with bilateral hilar change and effusions and mild decompensation suspected. Stable persistent cardiac strip recorder left chest PROCEDURE INTERPRETED AT [facility] DEPARTMENT OF RADIOLOGY Final Report Signed by: Dr. Tim Tapia
[2017-01-28 07:48] LABS: Random Urine Protein (Bench) 10 MG/DL (<11.9)
--- NOTE | 2017-01-28 09:08 | Hospitalist Progress Note ---
<Guanakito Felder - Last Filed: 01/28/17 09:05> Assessment and Plan (1) Acute on chronic congestive heart failure Status: Acute Assessment and plan: BNP on yesterday 1289; continue diuresis as ordered. 01/28-No further episodes of chest pain; no edema noted. Continue diuresis; re- check BNP in AM. Current Visit: Yes Qualifiers: Congestive heart failure type: unspecified congestive heart failure type Qualified Code(s): I50.9 - Heart failure, unspecified (2) Elevated troponin Status: Acute Current Visit: Yes (3) Chronic kidney disease Status: Chronic Assessment and plan: Worsening in renal function ; BUN-24; Creatinine-2.50; this is likely due to IV Lasix. Nephrology to evaluate. 01/28-Seen per Nephrology on yesterday; renal ultrasound obtained; mild medical kidney disease noted. Slight improvement in renal function; BUN/Creatinine 21/ 2.10. Current Visit: Yes Qualifiers: Chronic kidney disease stage: stage 2 (mild) Qualified Code(s): N18.2 - Chronic kidney disease, stage 2 (mild) (4) Uncontrolled hypertension Status: Chronic Assessment and plan: Blood pressures stable for the most part; spoke with patient in great detail on the importance of medical compliance. He acknowledges the importance of this; will consult SS to evaluate outpatient options for medical care. 01/27-Blood pressures stable at this time; will monitor. Current Visit: Yes Hospitalist: Subjective Interval history: Patient seen and examined; no significant overnight events. Echo on yesterday reported EF of 20%. Improvement in renal function today; BUN/Creatinine at 21/ 2.10 down from 24/2.5 on yesterday. Discussed in great detail this morning on the echocardiogram findings. Re-educated patient on the need to adhere to all treatments as ordered. Exam - Constitutional Vitals: Period Temp Pulse Resp BP Sys/Hurtado Pulse Ox Last 24 Hr 97.8 F-99.1 F 83-103 17-20 106-144/55-80 92-95 General appearance: normal weight, no acute distress - Head Head exam: Present: normal inspection, normocephalic, atraumatic - Eye Eye exam: Present: EOMI, conjunctival injection Pupils: Present: RENÉ, normal accommodation - ENT ENT exam: Present: normal exam, normal external ear exam, normal oropharynx - Neck Neck exam: Present: normal inspection. Absent: lymphadenopathy, meningismus, tenderness, thyromegaly - Respiratory Respiratory exam: Present: clear to auscultation bilaterally. Absent: rales, rhonchi, stridor, wheezes - Cardiovascular Cardiovascular exam: Present: regular rate and rhythm. Absent: carotid bruit, diastolic murmur, gallop, JVD, systolic murmur - GI/Abdominal GI/Abdominal exam: Present: normal bowel sounds, soft. Absent: firm, guarding - Extremities Exam Extremities exam: Present: normal inspection, normal capillary refill, full ROM. Absent: calf tenderness, edema - Back Exam Back exam: Present: normal inspection - Neurological Exam Neurological exam: Present: alert, oriented X3, CN II-XII intact - Psychiatric Psychiatric exam: Present: normal affect, normal mood - Skin Skin exam: Present: normal color, warm Results - Labs CBC & BMP: 01/28/17 05:12 01/28/17 05:13 Lab Results: I have reviewed the past 24 hour labs <Alisha Montero - Last Filed: 01/28/17 15:23> Assessment and Plan (1) Acute on chronic congestive heart failure Status: Acute Current Visit: Yes Qualifiers: Congestive heart failure type: unspecified congestive heart failure type Qualified Code(s): I50.9 - Heart failure, unspecified (2) Uncontrolled hypertension Status: Chronic Current Visit: Yes (3) Chronic kidney disease Status: Chronic Current Visit: Yes Qualifiers: Chronic kidney disease stage: stage 2 (mild) Qualified Code(s): N18.2 - Chronic kidney disease, stage 2 (mild) (4) Noncompliance Status: Chronic Current Visit: Yes (5) Elevated troponin Status: Acute Current Visit: Yes Hospitalist: Subjective Interval history: Patient seen and examined independently of ALBERTO Felder, agree with assessment and plan as documented. Creatinine is a little better today. Nephrology and Cardiology assisting. Exam - Constitutional Vitals: Period Temp Pulse Resp BP Sys/Hurtado Pulse Ox Last 24 Hr 97.8 F-99.1 F 92-103 17-20 103-144/67-80 92-96 Results - Labs CBC & BMP: 01/28/17 05:12 01/28/17 05:13
[2017-01-28] MEDS: ASPIRIN EC 81 MG TABLET PO SCH (09:33)
[2017-01-28] MEDS: FUROSEMIDE 40 MG/4 ML VIAL IV SCH ×3 (09:33→21:31)
[2017-01-28] MEDS: ISOSORBIDE MONONITRATE 30 MG TABLET PO SCH (09:33)
[2017-01-28] MEDS: PANTOPRAZOLE 40 MG TABLET PO SCH (09:34)
[2017-01-28] MEDS: NITROGLYCERIN 2% OINT 1 INCH/GM PACK TOP SCH ×2 (09:34→21:36)
[2017-01-28] MEDS: hydrALAZINE 25 MG TABLET PO SCH ×2 (09:34→21:31)
--- NOTE | 2017-01-28 12:39 | Nephrology Progress Note ---
Nephrology - PN: Subj Interval history: Patient reports breathing better. He states he feels like his legs are less swollen. Review of systems GI denies nausea or vomiting. Physical exam general the patient in no acute distress, his weight is decreased to 106 KGs, his urine output was about 2 L over 24 hours yesterday Assessment/plan #1. Acute renal failure on chronic renal failure-this patient' s creatinine is improved at 2.1 mg/dL 2. Congestive heart failure-he seems to be responding to the present Lasix regimen, I told the patient he would likely need to go home on at least 80 mg of Lasix twice a day and that he should invest in a weight scale so he can monitor his weights at home. 3. Proteinuria-patient has about 100 mg of albumin leaking per day 4. Hypertension-this patient's blood pressure is acceptable presently, I would continue the reduced dose of antihypertensives while we diurese him. Exam (PN)-Nephrology - Vital Signs Vital signs: Period Temp Pulse Resp BP Sys/Hurtado Pulse Ox Last 24 Hr 97.8 F-99.1 F 92-103 17-20 103-144/67-80 92-96 - Lab 01/28/17 05:12 01/28/17 05:13 Most recent lab results Calcium 8.7 MG/DL (8.5-10.1) 01/28/17 05:13 Phosphorus 4.5 MG/DL (2.5-4.9) 01/28/17 05:13 Magnesium 1.9 MG/DL (1.8-2.4) 01/28/17 05:13 Assessment and Plan (1) Acute renal failure Status: Acute Assessment and plan: This patient's creatinine was 1.7 mg/dL about 2 and half years ago, who on presentation here his creatinine was 2.3 mg/dL, it is increased to 2.5 mg/dL with Lasix administration and antihypertensives. I am going to check a renal ultrasound and quantify his protein leakage with a spot urine microalbumin to creatinine ratio will also check a urine protein electrophoresis. The patient' s urinalysis did not seem to have a very active sediment except for some protein leakage he had 1 red cell per high-power field, will also check a renal ultrasound. Current Visit: Yes (2) Hypertension Status: Acute Assessment and plan: This patient's blood pressure systolic was on presentation was 106, on occasion here it has been around 138 but for the most part it has been in the 100-110 range on the systolic side. With his increasing creatinine with the attempt at diuresis I think we should back off some of his antihypertensives to allow his perfusion pressure to his kidneys to improve. I am going to DC his Coreg and decrease his hydralazine and stopped the Spironolactone. Current Visit: Yes (3) Chronic kidney disease Status: Chronic Current Visit: Yes Qualifiers: Chronic kidney disease stage: stage 2 (mild) Qualified Code(s): N18.2 - Chronic kidney disease, stage 2 (mild) (4) Proteinuria Status: Acute Current Visit: Yes (5) Acute on chronic congestive heart failure Status: Acute Assessment and plan: I am going to increase his Lasix to 3 times a day, will check an echocardiogram Current Visit: Yes Qualifiers: Congestive heart failure type: unspecified congestive heart failure type Qualified Code(s): I50.9 - Heart failure, unspecified
[2017-01-28] MEDS: ENOXAPARIN 40 MG/0.4 ML SYRINGE SUBCUT SCH (23:24)
[2017-01-29 05:31] LABS: Basophils % 0.6 % (0.0-0.8); Eosinophils # 0.1 10*3/uL (0.0-0.87); Eosinophils % 2.3 % (0.00-10.9); Hematocrit 41.4 VOL% (42.0-52.0); Hemoglobin 14.2 GM/DL (14.0-18.0); Immature Granulocytes % 0.3 %; Immature Granulocytes Absolute 0.01 #; Lymphocytes # 1.5 10*3/uL (1.4-4.0); Lymphocytes % 43.5 % (21.2-54.2); Mean Corpuscular HGB Conc 34.3 GM/DL (32-36); Mean Corpuscular Hemoglobin 29 PG (27-34); Mean Platelet Volume 10.9 FL (9.6-12.0); Monocytes # 0.5 10*3/uL (0.11-0.8); Neutrophils # 1.4 10*3/uL (1.4-7.4); Neutrophils % 40.3 % (38.7-73.9); Platelet Count 243 T/CUMM (130-400); Red Blood Count 4.87 MC/CUMM (3.8-5.5); Red Cell Distribution Width 16.7 % (9.3-17.3); White Blood Count 3.5 T/CUMM (4-12)
[2017-01-29 06:09] LABS: Hypochromasia 1+; Ovalocytes Slight; Platelet Estimate Adequate
[2017-01-29 06:10] LABS: Bilirubin,Total 1.2 MG/DL (0.2-1.0); Calcium 9.1 MG/DL (8.5-10.1); Magnesium 2.1 MG/DL (1.8-2.4); Osmolality,Calculated 284.3 MOS/KG (273-304); Phosphorous 4.8 MG/DL (2.5-4.9); Potassium 3.8 MMOL/L (3.5-5.1); Total Protein 6.1 G/DL (6.4-8.3)
--- NOTE | 2017-01-29 08:19 | Nephrology Progress Note ---
Nephrology - PN: Subj Interval history: Patient denies shortness of breath. Review of systems cardiovascular-patient feels like his edema is decreasing and his lack Physical exam general the patient has 1+ pretibial edema, swelling in his thighs is decreased, the patient's weight is down to 102 KGs today from around 111 earlier in his hospitalization. Assessment/plan 1. Acute renal failure-this patient's creatinine stable around 2.1 mg/dL this may be about his baseline about 2-1/2 years ago his creatinine was 1.7 mg/dL. His current creatinine is improved from a peak of around 2.6 mg/ dL a few days ago. 2. Volume overload-patient seems to be responding to Lasix 40 mg 3 times a day , upon discharge I would have him take about 80 mg of Lasix p.o. twice daily and have him follow-up with myself or Dr. Ro in a couple of weeks. 3. Congestive heart failure patient's BNP is decreasing he seems to be compensating fairly well presently. 4. Hypertension-patient's blood pressure is acceptable presently, will continue to hold more aggressive BP meds for the time being while we actively diurese him. Exam (PN)-Nephrology - Vital Signs Vital signs: Period Temp Pulse Resp BP Sys/Hurtado Pulse Ox Last 24 Hr 97.7 F-98.4 F 97-101 18-20 103-148/73-88 93-96 - Lab 01/29/17 04:08 01/29/17 04:08 Most recent lab results Calcium 9.1 MG/DL (8.5-10.1) 01/29/17 04:08 Phosphorus 4.8 MG/DL (2.5-4.9) 01/29/17 04:08 Magnesium 2.1 MG/DL (1.8-2.4) 01/29/17 04:08 Assessment and Plan (1) Acute renal failure Status: Acute Assessment and plan: This patient's creatinine was 1.7 mg/dL about 2 and half years ago, who on presentation here his creatinine was 2.3 mg/dL, it is increased to 2.5 mg/dL with Lasix administration and antihypertensives. I am going to check a renal ultrasound and quantify his protein leakage with a spot urine microalbumin to creatinine ratio will also check a urine protein electrophoresis. The patient' s urinalysis did not seem to have a very active sediment except for some protein leakage he had 1 red cell per high-power field, will also check a renal ultrasound. Current Visit: Yes (2) Hypertension Status: Acute Assessment and plan: This patient's blood pressure systolic was on presentation was 106, on occasion here it has been around 138 but for the most part it has been in the 100-110 range on the systolic side. With his increasing creatinine with the attempt at diuresis I think we should back off some of his antihypertensives to allow his perfusion pressure to his kidneys to improve. I am going to DC his Coreg and decrease his hydralazine and stopped the Spironolactone. Current Visit: Yes (3) Chronic kidney disease Status: Chronic Current Visit: Yes Qualifiers: Chronic kidney disease stage: stage 2 (mild) Qualified Code(s): N18.2 - Chronic kidney disease, stage 2 (mild) (4) Proteinuria Status: Acute Current Visit: Yes (5) Acute on chronic congestive heart failure Status: Acute Assessment and plan: I am going to increase his Lasix to 3 times a day, will check an echocardiogram Current Visit: Yes Qualifiers: Congestive heart failure type: unspecified congestive heart failure type Qualified Code(s): I50.9 - Heart failure, unspecified
[2017-01-29] MEDS: ASPIRIN EC 81 MG TABLET PO SCH (08:45)
[2017-01-29] MEDS: ISOSORBIDE MONONITRATE 30 MG TABLET PO SCH (08:45)
[2017-01-29] MEDS: PANTOPRAZOLE 40 MG TABLET PO SCH (08:45)
[2017-01-29] MEDS: hydrALAZINE 25 MG TABLET PO SCH ×2 (08:45→21:20)
[2017-01-29] MEDS: FUROSEMIDE 40 MG/4 ML VIAL IV SCH (08:45)
[2017-01-29] MEDS: NITROGLYCERIN 2% OINT 1 INCH/GM PACK TOP SCH ×3 (08:46→21:21)
--- NOTE | 2017-01-29 10:35 | Hospitalist Progress Note ---
<Guanakito Felder - Last Filed: 01/29/17 10:40> Assessment and Plan (1) Acute on chronic congestive heart failure Status: Acute Assessment and plan: BNP on yesterday 1289; continue diuresis as ordered. 01/28-No further episodes of chest pain; no edema noted. Continue diuresis; re- check BNP in AM. 01/29-BNP improved; noted at 493 today. Nephrology/Cardiology to manage. Current Visit: Yes Qualifiers: Congestive heart failure type: unspecified congestive heart failure type Qualified Code(s): I50.9 - Heart failure, unspecified (2) Elevated troponin Status: Acute Current Visit: Yes (3) Chronic kidney disease Status: Chronic Assessment and plan: Worsening in renal function ; BUN-24; Creatinine-2.50; this is likely due to IV Lasix. Nephrology to evaluate. 01/28-Seen per Nephrology on yesterday; renal ultrasound obtained; mild medical kidney disease noted. Slight improvement in renal function; BUN/Creatinine 21/ 2.10. 01/29-BUN at 20; creatinine at 2.10; stable; will continue to monitor. Current Visit: Yes Qualifiers: Chronic kidney disease stage: stage 2 (mild) Qualified Code(s): N18.2 - Chronic kidney disease, stage 2 (mild) (4) Uncontrolled hypertension Status: Chronic Assessment and plan: Blood pressures stable for the most part; spoke with patient in great detail on the importance of medical compliance. He acknowledges the importance of this; will consult SS to evaluate outpatient options for medical care. 01/27-Blood pressures stable at this time; will monitor. 01/28-Blood pressures stable 01/29-Stable; Cardiology to manage. Current Visit: Yes Hospitalist: Subjective Interval history: Patient seen and examined. No significant overnight events. Renal function relatively unchanged at 20/2.10 today. Exam - Constitutional Vitals: Period Temp Pulse Resp BP Sys/Hurtado Pulse Ox Last 24 Hr 97.7 F-98.6 F 97-101 18-20 103-153/73-89 90-96 General appearance: normal weight, no acute distress - Head Head exam: Present: normal inspection, normocephalic, atraumatic - Eye Eye exam: Present: EOMI. Absent: conjunctival injection Pupils: Present: RENÉ, normal accommodation - ENT ENT exam: Present: normal exam, normal external ear exam, normal oropharynx - Neck Neck exam: Present: normal inspection. Absent: lymphadenopathy, meningismus, tenderness, thyromegaly - Respiratory Respiratory exam: Present: clear to auscultation bilaterally, wheezes. Absent: rales, rhonchi, stridor - Cardiovascular Cardiovascular exam: Present: regular rate and rhythm. Absent: carotid bruit, diastolic murmur, gallop, JVD, rubs, systolic murmur - GI/Abdominal GI/Abdominal exam: Present: normal bowel sounds, soft - Extremities Exam Extremities exam: Present: edema (+2 edema to extremeties) - Back Exam Back exam: Present: normal inspection - Neurological Exam Neurological exam: Present: alert, oriented X3 - Psychiatric Psychiatric exam: Present: flat affect - Skin Skin exam: Present: normal color, warm, dry Results - Labs CBC & BMP: 01/29/17 04:08 01/29/17 04:08 Lab Results: I have reviewed the past 24 hour labs <Alisha Montero - Last Filed: 01/29/17 16:01> Assessment and Plan (1) Acute on chronic congestive heart failure Status: Acute Current Visit: Yes Qualifiers: Congestive heart failure type: unspecified congestive heart failure type Qualified Code(s): I50.9 - Heart failure, unspecified (2) Uncontrolled hypertension Status: Chronic Current Visit: Yes (3) Chronic kidney disease Status: Chronic Current Visit: Yes Qualifiers: Chronic kidney disease stage: stage 2 (mild) Qualified Code(s): N18.2 - Chronic kidney disease, stage 2 (mild) (4) Noncompliance Status: Chronic Current Visit: Yes (5) Elevated troponin Status: Acute Current Visit: Yes Hospitalist: Subjective Interval history: Patient seen and examined independently of MEDICAL STAFF SERVICES MANAGER Bradford, agree with assessment and plan as documented. Diuresing well. Creatinine stable. Nephrology and cardiology assisting. Possible discharge soon. Exam - Constitutional Vitals: Period Temp Pulse Resp BP Sys/Hurtado Pulse Ox Last 24 Hr 97.3 F-98.6 F 87-101 18-20 120-153/76-89 90-95 Results - Labs CBC & BMP: 01/29/17 04:08 01/29/17 04:08
--- NOTE | 2017-01-29 11:37 | Cardiology Progress Note ---
Kermit Murphy Vanessa, RN, am scribing for, and in the presence of, Chilo Campbell MD 11:37. Assessment and Plan - Time spent with patient Time spent with patient: Greater than 30 minutes (1) Acute on chronic congestive heart failure Status: Acute Current Visit: Yes Qualifiers: Congestive heart failure type: unspecified congestive heart failure type Qualified Code(s): I50.9 - Heart failure, unspecified (2) Chronic kidney disease Status: Chronic Current Visit: Yes Qualifiers: Chronic kidney disease stage: stage 2 (mild) Qualified Code(s): N18.2 - Chronic kidney disease, stage 2 (mild) (3) Elevated troponin Status: Acute Current Visit: Yes (4) Uncontrolled hypertension Status: Chronic Current Visit: Yes (5) Noncompliance Status: Chronic Current Visit: Yes Cardiology - PN: Subj Interval history: PRIMARY FABRIC FINISHER: NONE ([facility] PER DR. ONTIVEROS IN 2009) PCP:NONE CARDIOLOGY CONSULT NOTE: CHF, UNCONTROLLED HTN SUMMARY: Mr. Villanueva is a 37 year old black male not routinely followed by cardiology. Risk factors significant for: uncontrolled hypertension, obesity, tobacco use. Past medical history includes hypertension, chronic renal insufficiency, and medical noncompliance. He denies a family history of coronary artery disease, but reports both mother and father had hypertension. His mom at age 71 due to cancer, and his father at age 45 due to kidney failure. He has had implantable loop recorder placed per Dr. Yee at [place] "a few years ago", last was checked approximately 1 year ago without abnormal finding per patient report. Patient had left heart catheterization and November [address] Ontiveros due to recurrent episodes of chest pain with a normal SPECT scan 8 months prior. Cardiac cath revealed large and widely patent right and left coronary artery systems, no mitral regurgitation, no aortic valve gradient , and normal systolic function with ejection fraction of 55%. [facility] on the evening of 01/25 with complaining of worsening in his severity of shortness of breath for the past week. One week prior to presentation at emergency room, he had been evaluated at [facility] and given a new diagnosis of CHF. At time of his evaluation at [place], he reported progressive orthopnea, PND, wheezing, and increase in LE edema over the course of 1 month. Reports that he was started on by mouth Lasix and that he has taken these as prescribed with minimal urine output and not much relief. EKG was negative for acute ischemic change. Chest x-ray with moderate cardiomegaly and increasing pulmonary congestion. BNP 1289. Patient was given Lasix 80 mg IV 1 dose and ER, and he reported noticeable increase in urine output. Echocardiogram 01/26 revealed a significant decline in LV function with ejection fraction estimated at 20%. He was admitted to telemetry per hospital medicine. Cardiology consulted for further evaluation of CHF and abnormal troponin 2 noted at 0.127, 0.102. JANUARY 29, 2017: Mr. Villanueva is awake and alert this morning, getting out of bed and ambulating to bathroom. Dyspnea with exertion is continuing to improve, appears minimal today, and patient agrees with this. Denies chest pain/tightness or dyspnea at rest. Edema previously noted at abdominal area and thigh/knee areas improved, and bilateral lower extremity edema 1+ today, predominantly pretibial area. Tenderness is present to lower leg areas but is improved today. Systolic BP 130 -150 and diastolic BP 75-90 mmHg. Regular rhythm with slight tachycardia, pulse rates 90 to 105 bpm. Labs reviewed. WBC 3500 H&H 14.2 and 41.4 with MCV 85.0. Creatinine unchanged at 2.1 with GFR 58. Potassium is 3.8 and magnesium is 2.1. BMP significantly improved and 493 today. Going to switch to p.o. Lasix and hopefully will continue with diuresis. I think he is getting close to being ready for discharge. Exam (Progress Note) - Constitutional Vitals: Period Temp Pulse Resp BP Sys/Hurtado Pulse Ox Last 24 Hr 97.7 F-98.6 F 97-101 18-20 103-153/73-89 90-96 Exam: General: Present: Other (Mild distress, overweight) HEENT: Present: PERRL, Normocephaly, Mucus Membranes Moist. Absent: Pallor, Oral Lesions Cardiac: Present: Regular Rhythm, No Murmur, Tachycardia. Absent: Audible Murmur, Bradycardia Lungs: Present: Bibasilar Rales-improving. No Rhonchi Neuro: Present: Grossly Intact. Absent: Numbness, Tingling, Weakness, Resting Tremor, Essential Tremor Abdomen: Present: Soft, normal bowel sounds. Absent: Firm, Distended, tenderness Skin: Present: Clear. Absent: Rash, Suspicious Lesions, Bruising Musculoskeletal: Present: Range of motion improved Extremities: Present: No Cyanosis, Normal Upper Extr. Pulses (3+ bilateral), Normal Lower Extr. Pulses (1-2+ bilaterally; difficult palpation R/T edema), normal capillary refill. Bilateral lower extremity with improved edema and pretibial 1+ edema noted. Tenderness improving to bilateral lower extremities. Result/EKG - Labs CBC & BMP: 01/29/17 04:08 01/29/17 04:08 Lab Results: I have reviewed the past 24 hour labs Labs: Laboratory Results - last 24 hr 01/29/17 01/29/17 01/29/17 04:08 04:08 04:08 WBC 3.5 L RBC 4.87 Hgb 14.2 Hct 41.4 L MCV 85.0 L MCH 29 MCHC 34.3 RDW 16.7 Plt Count 243 MPV 10.9 Neut % (Auto) 40.3 Lymph % (Auto) 43.5 [place] % (Auto) 13.0 H Eos % (Auto) 2.3 Baso % (Auto) 0.6 Neut # (Auto) 1.4 Lymph # (Auto) 1.5 [place] # (Auto) 0.5 Eos # (Auto) 0.1 Baso # (Auto) 0.0 Immature Gran % 0.3 Nucleated RBC % 0.0 Immature Gran # 0.01 Nucleated RBCs # 0.00 Platelet Estimate Adequate Hypochromasia 1+ Ovalocytes Slight Morphology Comment Sodium 141 Potassium 3.8 Chloride 100 Carbon Dioxide 29 Anion Gap 15.8 H BUN 20 H Creatinine 2.10 H GFR Calculation 58 BUN/Creatinine Ratio 9.00 Glucose 120 H Calculated Osmolality 284.3 Calcium 9.1 Phosphorus 4.8 Magnesium 2.1 Total Bilirubin 1.20 H AST 14 ALT 24 Alkaline Phosphatase 71 B-Natriuretic Peptide 493 H Total Protein 6.1 L Albumin 3.0 L Globulin 3.1 Albumin/Globulin Ratio 0.9 L - EKG EKG results: interpreted by me, no acute changes EKG shows: sinus rhythm (Sinus tachycardia with pulse rate 90s-105 bpm) IAdrian Wesley, MD, personally performed the services described in this documentation, ascribed by Rupinder Carmen RN in my presence, and it is both accurate and complete .
[2017-01-29] MEDS: FUROSEMIDE 80 MG TABLET PO SCH (16:41)
[2017-01-29] MEDS: ENOXAPARIN 40 MG/0.4 ML SYRINGE SUBCUT SCH (23:46)
[2017-01-30 06:00] LABS: Basophils % 0.3 % (0.0-0.8); Eosinophils # 0.1 10*3/uL (0.0-0.87); Hematocrit 43.4 VOL% (42.0-52.0); Hemoglobin 14.8 GM/DL (14.0-18.0); Lymphocytes # 1.5 10*3/uL (1.4-4.0); Mean Corpuscular HGB Conc 34.1 GM/DL (32-36); Mean Corpuscular Hemoglobin 30 PG (27-34); Mean Corpuscular Volume 86.5 FL (87-102); Mean Platelet Volume 10.3 FL (9.6-12.0); Monocytes # 0.5 10*3/uL (0.11-0.8); Neutrophils # 1.5 10*3/uL (1.4-7.4); Neutrophils % 40.7 % (38.7-73.9); Platelet Count 236 T/CUMM (130-400); Red Blood Count 5.02 MC/CUMM (3.8-5.5); Red Cell Distribution Width 16.5 % (9.3-17.3); White Blood Count 3.6 T/CUMM (4-12)
[2017-01-30 06:24] LABS: Calcium 8.4 MG/DL (8.5-10.1); Magnesium 2.2 MG/DL (1.8-2.4); Osmolality,Calculated 282.4 MOS/KG (273-304)
[2017-01-30 06:35] LABS: Eosinophils 1 % (0-10); Hypochromasia 1+; Lymphocytes 47 % (20-55); Microcytosis 1+; Ovalocytes Few; Segmented Neutrophils 35 % (50-85); Total Cells Counted 100
[2017-01-30 06:36] LABS: Platelet Estimate Normal
[2017-01-30] MEDS: hydrALAZINE 25 MG TABLET PO SCH ×2 (08:23→20:47)
[2017-01-30] MEDS: FUROSEMIDE 80 MG TABLET PO SCH ×2 (08:23→17:42)
[2017-01-30] MEDS: ASPIRIN EC 81 MG TABLET PO SCH (08:23)
[2017-01-30] MEDS: PANTOPRAZOLE 40 MG TABLET PO SCH (08:24)
[2017-01-30] MEDS: NITROGLYCERIN 2% OINT 1 INCH/GM PACK TOP SCH ×2 (08:24→20:48)
[2017-01-30] MEDS: ISOSORBIDE MONONITRATE 30 MG TABLET PO SCH (08:24)
--- NOTE | 2017-01-30 10:08 | Cardiology Progress Note ---
Assessment and Plan (1) Acute on chronic congestive heart failure Status: Acute Assessment and plan: 01/30: Patient has responded well. He has heart failure with preserved ejection fraction and our plan will be to continue outpatient diuretics and close follow- up. Current Visit: Yes Qualifiers: Congestive heart failure type: unspecified congestive heart failure type Qualified Code(s): I50.9 - Heart failure, unspecified (2) Chronic kidney disease Status: Chronic Current Visit: Yes Qualifiers: Chronic kidney disease stage: stage 2 (mild) Qualified Code(s): N18.2 - Chronic kidney disease, stage 2 (mild) (3) Elevated troponin Status: Acute Current Visit: Yes (4) Uncontrolled hypertension Status: Chronic Current Visit: Yes (5) Noncompliance Status: Chronic Current Visit: Yes Cardiology - PN: Subj Interval history: Patient renal insufficiency volume overload congestive heart failure much improved now with increasing diuresis to the point that he is nearing ready for discharge. Agree with your plans and we will continue diuresis as currently. We discussed the need for him to weigh himself on a daily basis and to adjust his diuretics as needed for weight increases. He seems well motivated and we will have the dietitian to review with him prior to discharge. Exam (Progress Note) - Constitutional Vitals: Period Temp Pulse Resp BP Sys/Hurtado Pulse Ox Last 24 Hr 97.3 F-99.3 F 73-123 18-20 120-144/77-99 92-97 Exam: General: Present: Other (Mild distress, overweight) HEENT: Present: PERRL, Normocephaly, Mucus Membranes Moist. Absent: Pallor, Oral Lesions Cardiac: Present: Regular Rhythm, No Murmur, Tachycardia. Absent: Audible Murmur, Bradycardia Lungs: Present: Bibasilar Rales-improving. No Rhonchi Neuro: Present: Grossly Intact. Absent: Numbness, Tingling, Weakness, Resting Tremor, Essential Tremor Abdomen: Present: Soft, normal bowel sounds. Absent: Firm, Distended, tenderness Skin: Present: Clear. Absent: Rash, Suspicious Lesions, Bruising Musculoskeletal: Present: Range of motion improved Extremities: Present: No Cyanosis, Normal Upper Extr. Pulses (3+ bilateral), Normal Lower Extr. Pulses (1-2+ bilaterally; difficult palpation R/T edema), normal capillary refill. Bilateral lower extremity with improved edema and pretibial 1+ edema noted. Tenderness improving to bilateral lower extremities. Result/EKG - Labs CBC & BMP: 01/30/17 05:29 01/30/17 05:29 Labs: Laboratory Results - last 24 hr 01/30/17 01/30/17 05:29 05:29 WBC 3.6 L RBC 5.02 Hgb 14.8 Hct 43.4 MCV 86.5 L MCH 30 MCHC 34.1 RDW 16.5 Plt Count 236 MPV 10.3 Neut % (Auto) 40.7 Lymph % (Auto) 43.0 [place] % (Auto) 14.0 H Eos % (Auto) 2.0 Baso % (Auto) 0.3 Neut # (Auto) 1.5 Lymph # (Auto) 1.5 [place] # (Auto) 0.5 Eos # (Auto) 0.1 Baso # (Auto) 0.0 Total Counted 100 Immature Gran % 0.0 Nucleated RBC % 0.0 Immature Gran # 0.00 Segmented Neutrophils 35 L Lymphocytes 47 Monocytes 17 H Eosinophils 1 Nucleated RBCs # 0.00 Platelet Estimate Normal Hypochromasia 1+ Microcytosis 1+ Ovalocytes Few Sodium 140 Potassium 4.0 Chloride 102 Carbon Dioxide 28 Anion Gap 14.0 BUN 22 H Creatinine 2.00 H GFR Calculation 61 BUN/Creatinine Ratio 11.00 Glucose 112 H Calculated Osmolality 282.4 Calcium 8.4 L Magnesium 2.2
--- NOTE | 2017-01-30 11:43 | Nephrology Progress Note ---
Nephrology - PN: Subj Interval history: He denies shortness of breath or chest pain. Exam (PN)-Nephrology - Vital Signs Vital signs: Period Temp Pulse Resp BP Sys/Hurtado Pulse Ox Last 24 Hr 97.3 F-99.3 F 73-123 18-20 120-144/77-99 92-97 Exam: ENT: Normal Cardiovascular: Regular rate and rhythm. No murmur rub or gallop Lungs: Clear Extremities: 1+ edema - Lab 01/30/17 05:29 01/30/17 05:29 Most recent lab results Calcium 8.4 MG/DL (8.5-10.1) L 01/30/17 05:29 Phosphorus 4.8 MG/DL (2.5-4.9) 01/29/17 04:08 Magnesium 2.2 MG/DL (1.8-2.4) 01/30/17 05:29 Assessment and Plan (1) Chronic kidney disease Status: Chronic Assessment and plan: 37-year-old man with: * CRF 3. Renal function has improved * CHF. Symptoms improving with diuresis * Hypertension. Controlled Current Visit: Yes Qualifiers: Chronic kidney disease stage: stage 2 (mild) Qualified Code(s): N18.2 - Chronic kidney disease, stage 2 (mild) (2) Acute on chronic congestive heart failure Status: Acute Current Visit: Yes Qualifiers: Congestive heart failure type: unspecified congestive heart failure type Qualified Code(s): I50.9 - Heart failure, unspecified (3) Hypertension Status: Acute Current Visit: Yes
--- NOTE | 2017-01-30 13:33 | Hospitalist Progress Note ---
Assessment and Plan (1) Acute on chronic congestive heart failure Status: Acute Assessment and plan: Continue lasix iv 40 bid monitor daily weights Cardiology assisting Current Visit: Yes Qualifiers: Congestive heart failure type: unspecified congestive heart failure type Qualified Code(s): I50.9 - Heart failure, unspecified (2) Uncontrolled hypertension Status: Chronic Assessment and plan: Cardiology has made changes to his regimen Carvedilol, isosorbide mononitrate and hydralazine Current Visit: Yes (3) Chronic kidney disease Status: Chronic Assessment and plan: Unknown baseline Monitor closely, especially on lasix Current Visit: Yes Qualifiers: Chronic kidney disease stage: stage 2 (mild) Qualified Code(s): N18.2 - Chronic kidney disease, stage 2 (mild) (4) Noncompliance Status: Chronic Current Visit: Yes (5) Elevated troponin Status: Acute Assessment and plan: Cardiology assisting Current Visit: Yes Hospitalist: Subjective Interval history: No acute events overnight. Patient reports that his LE swelling is better. Continues to improve, possible discharge soon. Exam - Constitutional Vitals: Period Temp Pulse Resp BP Sys/Hurtado Pulse Ox Last 24 Hr 97.3 F-99.3 F 73-123 18-20 129-146/77-102 93-97 General appearance: over weight - Head Head exam: Present: normocephalic, atraumatic - Eye Eye exam: Present: EOMI Pupils: Present: RENÉ - ENT ENT exam: Present: normal exam - Neck Neck exam: Present: normal inspection - Respiratory Respiratory exam: Present: clear to auscultation bilaterally. Absent: rhonchi, wheezes - Cardiovascular Cardiovascular exam: Present: regular rate and rhythm - GI/Abdominal GI/Abdominal exam: Present: normal bowel sounds, soft. Absent: tenderness, rebound - Extremities Exam Extremities exam: Present: normal inspection - Back Exam Back exam: Present: normal inspection - Neurological Exam Neurological exam: Present: alert, oriented X3 - Psychiatric Psychiatric exam: Present: normal affect, normal mood - Skin Skin exam: Present: warm, intact Results - Labs CBC & BMP: 01/30/17 05:29 01/30/17 05:29
[2017-01-31] MEDS: ENOXAPARIN 40 MG/0.4 ML SYRINGE SUBCUT SCH
[2017-01-31 04:30] LABS: Basophils % 0.3 % (0.0-0.8); Eosinophils # 0.1 10*3/uL (0.0-0.87); Eosinophils % 2.1 % (0.00-10.9); Hematocrit 44.8 VOL% (42.0-52.0); Hemoglobin 15.2 GM/DL (14.0-18.0); Immature Granulocytes % 0.3 %; Immature Granulocytes Absolute 0.01 #; Lymphocytes # 1.6 10*3/uL (1.4-4.0); Lymphocytes % 49.2 % (21.2-54.2); Mean Corpuscular HGB Conc 33.9 GM/DL (32-36); Mean Corpuscular Hemoglobin 29 PG (27-34); Mean Corpuscular Volume 85.8 FL (87-102); Mean Platelet Volume 9.9 FL (9.6-12.0); Monocytes # 0.4 10*3/uL (0.11-0.8); Monocytes % 11.3 % (1.7-12.7); Neutrophils # 1.2 10*3/uL (1.4-7.4); Neutrophils % 36.8 % (38.7-73.9); Platelet Count 232 T/CUMM (130-400); Red Blood Count 5.22 MC/CUMM (3.8-5.5); Red Cell Distribution Width 16.3 % (9.3-17.3); White Blood Count 3.3 T/CUMM (4-12)
[2017-01-31 05:00] LABS: Calcium 8.9 MG/DL (8.5-10.1); Magnesium 2.1 MG/DL (1.8-2.4); Osmolality,Calculated 282.4 MOS/KG (273-304); Potassium 3.8 MMOL/L (3.5-5.1)
[2017-01-31 05:30] LABS: Eosinophils 8 % (0-10); Lymphocytes 50 % (20-55); Segmented Neutrophils 29 % (50-85); Total Cells Counted 100
[2017-01-31 05:31] LABS: Hypochromasia Slight; Microcytosis Slight; Ovalocytes Slight
[2017-01-31 05:32] LABS: Platelet Estimate Normal
[2017-01-31 08:07] VITALS: BP 143/94
[2017-01-31] MEDS ORDERED: ISOSORBIDE MONONITRATE 60 MG TABLET PO SCH (09:23)
--- NOTE | 2017-01-31 09:30 | Cardiology Progress Note ---
Assessment and Plan (1) Acute on chronic congestive heart failure Status: Acute Assessment and plan: 01/30: Patient has responded well. He has heart failure with preserved ejection fraction and our plan will be to continue outpatient diuretics and close follow- up. Current Visit: Yes Qualifiers: Congestive heart failure type: unspecified congestive heart failure type Qualified Code(s): I50.9 - Heart failure, unspecified (2) Chronic kidney disease Status: Chronic Current Visit: Yes Qualifiers: Chronic kidney disease stage: stage 2 (mild) Qualified Code(s): N18.2 - Chronic kidney disease, stage 2 (mild) (3) Elevated troponin Status: Acute Current Visit: Yes (4) Uncontrolled hypertension Status: Chronic Current Visit: Yes (5) Noncompliance Status: Chronic Current Visit: Yes Cardiology - PN: Subj Interval history: Patient is improving slowly. His volume status is correcting. An echocardiogram was discussed but I do not see records that it was ever done and we will get one prior to his discharge. He is overall currently stable and I think he is nearing reached maximal hospital benefit and likely can be discharged. We can schedule him to see me in 2 weeks to 1 month for follow-up. Exam (Progress Note) - Constitutional Vitals: Period Temp Pulse Resp BP Sys/Hurtado Pulse Ox Last 24 Hr 96.9 F-98.6 F 81-107 18-20 112-146/72-102 93-100 Exam: General: Present: Other (Mild distress, overweight) HEENT: Present: PERRL, Normocephaly, Mucus Membranes Moist. Absent: Pallor, Oral Lesions Cardiac: Present: Regular Rhythm, No Murmur, Tachycardia. Absent: Audible Murmur, Bradycardia Lungs: Present: Bibasilar Rales-improving. No Rhonchi Neuro: Present: Grossly Intact. Absent: Numbness, Tingling, Weakness, Resting Tremor, Essential Tremor Abdomen: Present: Soft, normal bowel sounds. Absent: Firm, Distended, tenderness Skin: Present: Clear. Absent: Rash, Suspicious Lesions, Bruising Musculoskeletal: Present: Range of motion improved Extremities: Present: No Cyanosis, Normal Upper Extr. Pulses (3+ bilateral), Normal Lower Extr. Pulses (1-2+ bilaterally; difficult palpation R/T edema), normal capillary refill. Bilateral lower extremity with improved edema and pretibial 1+ edema noted. Tenderness improving to bilateral lower extremities. Result/EKG - Labs CBC & BMP: 01/31/17 03:42 01/31/17 03:42 Labs: Laboratory Results - last 24 hr 01/31/17 01/31/17 03:42 03:42 WBC 3.3 L RBC 5.22 Hgb 15.2 Hct 44.8 MCV 85.8 L MCH 29 MCHC 33.9 RDW 16.3 Plt Count 232 MPV 9.9 Neut % (Auto) 36.8 L Lymph % (Auto) 49.2 [place] % (Auto) 11.3 Eos % (Auto) 2.1 Baso % (Auto) 0.3 Neut # (Auto) 1.2 L Lymph # (Auto) 1.6 [place] # (Auto) 0.4 Eos # (Auto) 0.1 Baso # (Auto) 0.0 Total Counted 100 Immature Gran % 0.3 Nucleated RBC % 0.0 Immature Gran # 0.01 Segmented Neutrophils 29 L Lymphocytes 50 Monocytes 12 Eosinophils 8 Basophils 1.0 H Nucleated RBCs # 0.00 Platelet Estimate Normal Hypochromasia Slight Microcytosis Slight Ovalocytes Slight Sodium 140 Potassium 3.8 Chloride 102 Carbon Dioxide 28 Anion Gap 13.8 BUN 22 H Creatinine 1.90 H GFR Calculation 65 BUN/Creatinine Ratio 11.00 Glucose 112 H Calculated Osmolality 282.4 Calcium 8.9 Magnesium 2.1
[2017-01-31] MEDS: hydrALAZINE 25 MG TABLET PO SCH (09:36)
[2017-01-31] MEDS: ASPIRIN EC 81 MG TABLET PO SCH (09:37)
[2017-01-31] MEDS: PANTOPRAZOLE 40 MG TABLET PO SCH (09:37)
[2017-01-31] MEDS: FUROSEMIDE 80 MG TABLET PO SCH (09:37)
--- NOTE | 2017-01-31 09:38 | ECHO Report ---
Karie Villanueva Exam Date: 01/26/2017 09:22 Referring Physician: Technologist: Johana Pinto Age: 37 Ht (in): 74 Wt (lb): 240 Gender: M Exam Location: [facility] Echo Indications: Heart failure, unspecified, Essential (primary) hypertension, elevated triponin, Shortness of breath BP: 145 / 105 HR: 88 Rhythm: Sinus Technical Quality: Good IMPRESSIONS Normal left ventricular cavity size. Mild left ventricular hypertrophy. Left ventricular ejection fraction is estimated at 25-30 %. The right ventricle is normal in size and function. Moderately increased right atrial size. Moderately increased left atrial size. Morphologically normal mitral valve. Mild mitral valve regurgitation. Morphologically normal aortic valve without significant sclerosis or stenosis. There is no aortic regurgitation. Morphologically normal tricuspid valve. Mild tricuspid valve regurgitation. Tricuspid regurgitation velocities suggest a PAP of 41 mmHg. Morphologically normal pulmonic valve. Trace pulmonary valve regurgitation. Normal pericardium without effusion. Normal ascending aorta dimension. MEASUREMENTS (Male / Female) Normal Values 2D ECHO LV Diastolic Diameter PLAX 5.7 cm 4.2 - 5.9 / 3.9 - 5.3 cm LV Systolic Diameter PLAX 5.1 cm LV Fractional Shortening PLAX 10.8 % IVS Diastolic Thickness 1.4 cm 0.6 - 1.0 / 0.6 - 0.9 cm LVPW Diastolic Thickness 1.7 cm 0.6 - 1.0 / 0.6 - 0.9 cm RV Internal Dim ED PLAX 3.7 cm Aortic Root Diameter 3.5 cm LA Systolic Diameter LX 5.0 cm 3.0 - 4.0 / 2.7 - 3.8 cm DOPPLER TR Peak Velocity 280.0 cm/s TR Peak Gradient 31.4 mmHg FINDINGS Left Ventricle Normal left ventricular cavity size. Mild left ventricular hypertrophy. Left ventricular ejection fraction is estimated at 25-30 %. Right Ventricle The right ventricle is normal in size and function. Right Atrium Moderately increased right atrial size. Left Atrium Moderately increased left atrial size. Mitral Valve Morphologically normal mitral valve. Mild mitral valve regurgitation. Aortic Valve Morphologically normal aortic valve without significant sclerosis or stenosis. There is no aortic regurgitation. Tricuspid Valve Morphologically normal tricuspid valve. Mild tricuspid valve regurgitation. Tricuspid regurgitation velocities suggest a PAP of 41 mmHg. Pulmonic Valve Morphologically normal pulmonic valve. Trace pulmonary valve regurgitation. Pericardium Normal pericardium without effusion. Aorta Normal ascending aorta dimension. Chilo Campbell MD (Electronically Signed) Final Date: 31 Jan 2017 09:36
--- NOTE | 2017-01-31 11:14 | Discharge Summary ---
Hospital Course - Hospital Course Hospital Course: Mr. Villanueva is a 37 year old black male presented with 1 month of progressive orthopnea, PND, pedal edema, and wheezing. He was seen the week prior at [place] and diagnosed with congestive heart failure and begun on diuretics; however, he stated that the oral diuretics have not been as effective as the IV. On presentation he is sitting upright and still short of breath. He gives a history of poorly controlled hypertension and has been noncompliant with medications. He does not have a primary care physician and has been getting his medications refilled in the emergency department. He stated he was taking metoprolol, lisinopril, hydralazine, Norvasc, and was started on Lasix and potassium in the ER approximately 1 week ago. He states the lower extremity edema has been progressively worsening and goes all the way up to his abdomen. He is visibly short of breath and anxious. He gives a family history of hypertension and renal disease. The patient also reports a loop recorder implantation done approximately 2 years ago for syncope. This is a [employer] loop recording device. It has not been interrogated since its placement according to the patient. The patient was admitted to the hospitalist service for acute on chronic systolic heart failure. He was started on IV lasix. Cardiology was consulted. Echocardiogram with EF 25-30%. Blood pressure medications were adjusted. Nephrology was consulted for evaluation of chronic kidney disease. His respiratory status and lower extremity edema have continued to improve. He has now reached maximal benefit of inpatient stay and will be discharged home. - Time spent with patient Time with patient DS: Less than 30 minutes Diagnosis - Discharge Diagnosis (1) Acute on chronic congestive heart failure Status: Acute (2) Uncontrolled hypertension Status: Chronic (3) Chronic kidney disease Status: Chronic (4) Noncompliance Status: Chronic (5) Elevated troponin Status: Chronic Specialty Discharge - Follow Up or Referrals Follow up with: Chilo Campbell MD [Physician] - 2 Weeks Asad Ro Jr., MD [Physician] - 2 Weeks Discharge Plan - Discharge Data Condition at Discharge: Stable Discharge Diet: heart healthy, low salt diet Activity: increase activity as tolerated Hygiene: no restrictions Weight Bearing at Discharge: weight bear as tolerated Driving: no restrictions Contact your physician if you experience:: fever over 101, Shortness of breath - Discharge Medications New Furosemide Tab [Lasix Tab] 80 mg PO BID DIURETIC #60 tablet Isosorbide Mononitrate [Imdur] 60 mg PO DAILY #30 tablet hydrALAZINE TAB [Apresoline Tab] 50 mg PO BID #60 tablet Aspirin EC Tab 81 mg PO DAILY tablet Continue Potassium Chloride [Klor-Con M20] 20 meq PO DAILY Discontinued Furosemide Tab [Lasix Tab] 40 mg PO DAILY - Follow Up or Referral - Forms/Instructions Exam - Constitutional Vitals: Period Temp Pulse Resp BP Sys/Hurtado Pulse Ox Last 24 Hr 96.9 F-98.6 F 81-107 18-20 112-146/72-102 93-100 General appearance: over weight - Head Head exam: Present: normocephalic, atraumatic - Eye Eye exam: Present: EOMI Pupils: Present: RENÉ - ENT ENT exam: Present: normal exam - Neck Neck exam: Present: normal inspection - Respiratory Respiratory exam: Present: clear to auscultation bilaterally. Absent: rhonchi, wheezes - Cardiovascular Cardiovascular exam: Present: regular rate and rhythm - GI/Abdominal GI/Abdominal exam: Present: normal bowel sounds, soft. Absent: tenderness, rebound - Extremities Exam Extremities exam: Present: normal inspection - Back Exam Back exam: Present: normal inspection - Neurological Exam Neurological exam: Present: alert, oriented X3 - Psychiatric Psychiatric exam: Present: normal affect, normal mood - Skin Skin exam: Present: warm, intact Discharge Results Procedures and tests throughout hospitalization: Pending Orders 02/01/17 04:00 BMP w/ Mg [Basic Metabolic Panel w/Mg] IN AM CBC [Comp Blood Count Auto Diff] IN AM Labs on day of discharge: Labs from last 24 hours 01/31/17 01/31/17 03:42 03:42 WBC 3.3 L RBC 5.22 Hgb 15.2 Hct 44.8 MCV 85.8 L MCH 29 MCHC 33.9 RDW 16.3 Plt Count 232 MPV 9.9 Neut % (Auto) 36.8 L Lymph % (Auto) 49.2 Casey % (Auto) 11.3 Eos % (Auto) 2.1 Baso % (Auto) 0.3 Neut # (Auto) 1.2 L Lymph # (Auto) 1.6 Casey # (Auto) 0.4 Eos # (Auto) 0.1 Baso # (Auto) 0.0 Total Counted 100 Immature Gran % 0.3 Nucleated RBC % 0.0 Immature Gran # 0.01 Segmented Neutrophils 29 L Lymphocytes 50 Monocytes 12 Eosinophils 8 Basophils 1.0 H Nucleated RBCs # 0.00 Platelet Estimate Normal Hypochromasia Slight Microcytosis Slight Ovalocytes Slight Sodium 140 Potassium 3.8 Chloride 102 Carbon Dioxide 28 Anion Gap 13.8 BUN 22 H Creatinine 1.90 H GFR Calculation 65 BUN/Creatinine Ratio 11.00 Glucose 112 H Calculated Osmolality 282.4 Calcium 8.9 Magnesium 2.1 DS: Provider Date of admission: 01/25/17 23:21 Primary care physician: . No PCP Attending physician on admission: Jovon De La Cruz MD Consults: 01/26/17 01:48 Consult to Pastoral Services [CONS] Routine Comment: Pastoral Screen: Request Voltmeter Operator Visit 01/26/17 14:49 Consult to Physician [CONS] Routine Comment: known to you, hx CRI, HTN; new onset CHF Consulting Provider: Asad Ro Jr. When should Consulting Provider be notified: Now Date Notified: 01/27/17 Time Notified: 07:43 Consult Notification Comment: message left at 0743 call returned at 0912-consult to go to Dr. Aponte. Discharging clinician: Alisha Montero MD
[2017-01-31] MEDS: ISOSORBIDE MONONITRATE 30 MG TABLET PO SCH (12:18)
[2017-01-31] MEDS: NITROGLYCERIN 2% OINT 1 INCH/GM PACK TOP SCH (12:18)
== END 2017-01-31 12:25 | disposition home or self-care (01) | DRG 291 ==
LOC: N.ED 20:18 → SUATTDRO 23:21 → N.EDINP 23:21 → N.TELES 23:46
PROVIDERS: ADMIT Family Medicine; ATTEND Internal Medicine

== ENCOUNTER 2017-04-29 18:54 | Inpatient (IN) ==
[2017-04-29] MEDS ORDERED: ONDANSETRON 4 MG/2 ML VIAL IV STA (19:36)
[2017-04-29] MEDS ORDERED: ASPIRIN 325 MG TABLET PO STA (19:36)
[2017-04-29] MEDS ORDERED: ONDANSETRON 4 MG/2 ML VIAL ONE (19:44)
[2017-04-29] MEDS ORDERED: ASPIRIN 325 MG TABLET ONE (19:44)
--- NOTE | 2017-04-29 20:03 | CT Report ---
Referring physician: Av Velásquez Exam: CT brain without contrast Date: 04/29/2017 Comparison: 04/13/2017 Reason: Right hemiparesis Technique: Axial images of the head were obtained without the use of contrast. Total DLP was 1134.10 mGy*cm. Findings: No hydrocephalus or midline shift is present. There is no evidence of an acute infarction, recent intracranial hemorrhage or abnormal mass effect. The osseous structures appear intact. The mastoid air cells are clear. Incomplete evaluation of polypoidal mucosal finding in left maxillary sinus. Impression: No acute intracranial abnormality is identified. Incomplete evaluation of polypoidal mucosal finding in the left maxillary sinus. The CT exam was performed using one or more of the following dose reduction techniques: Automated exposure control and adjustment of the mA and/or kV according to patient size. PROCEDURE INTERPRETED AT [facility] DEPARTMENT OF RADIOLOGY Final Report Signed by: Dr. Radha Manzanares
--- NOTE | 2017-04-29 20:06 | XRay Report ---
Portable chest Date: 04/29/2017 Clinical history: Cardiomegaly Comparison: 04/13/2017 Technique: Portable AP sitting chest Findings: The heart is borderline in size with left loop recorder. The lungs and mediastinum are stable in appearance. No acute osseous findings. Impression: No acute cardiopulmonary pathology identified. PROCEDURE INTERPRETED AT [facility] DEPARTMENT OF RADIOLOGY Final Report Signed by: Dr. Radha Manzanares
--- NOTE | 2017-04-29 20:12 | Emergency Department Note ---
Evelyn Murphy Rolonda, am scribing for, and in the presence of, Av Velásquez MD 19:59. Christen Murphy Charles R, MD, personally performed the services described in this documentation, ascribed by Rell Rivas in my presence, and it is both accurate and complete . Arrival - Arrival Chief Complaint: Weakness Stated Complaint: stroke symptoms/cant move right arm ED Nursing Triage Note: Pt to triage with c/o right side pain, weakness, and tingling sensation that's been going on all day, but recently gotten worse today. Mode of Arrival: Ambulatory Limitations: No Limitations Source: Patient, Family, Old Records Reviewed, RN Notes Reviewed Time Seen by Provider: 04/29/17 19:25 - History of Present Illness HPI Narrative: Pt is a 37 y/o male who presents to the ED for further evaluation of right sided weakness with an onset of earlier this morning. Pt has a PMHc of CHF, HTN , and Cardiac dysrhythmia. He states that the sxs initially began this morning but have worsened which prompted visit to the ED. 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 Pt denies EtOH usage but confirms that he has right sided numbness, smoked marijuana in the past and that he takes ASA. He is f/u by Dr. Campbell. No other complaint/pain in ED. Onset (ago): hour(s) Consistency: constant Severity: moderate, severe Severity scale (1-10): 6 Allergies/Adverse Reactions: Allergies Allergy/AdvReac Type Severity Reaction Status Date / Time No Known Allergies Allergy Verified 04/29/17 19:04 Home Medications: Home Medications Medication Instructions Recorded Confirmed Type Furosemide Tab [Lasix Tab] 80 mg PO BID DIURETIC #60 tablet 01/31/17 04/13/17 Rx hydrALAZINE TAB [Apresoline Tab] 50 mg PO BID #60 tablet 01/31/17 04/13/17 Rx Isosorbide Mononitrate [Imdur] 60 mg PO QAM 03/25/17 04/13/17 History Aspirin 325 mg PO DAILY 04/13/17 04/13/17 History Indomethacin Cap [Indocin Cap] 25 mg PO TID #30 capsule 04/13/17 Rx Tizanidine HCl [Zanaflex] 2 mg PO Q6H #40 capsule 04/13/17 Rx predniSONE TAB [PredniSONE] 20 mg PO DAILY #15 tablet 04/13/17 Rx Review of System - Review of System 12 point system: reviewed and no additional remarkable complaints except as stated - Review of System Constitutional: Absent: chills, fever Eyes: Absent: discharge Head/Ears/Nose/Throat: Absent: earache Respiratory: Absent: cough Cardiovascular: Absent: chest pain Gastrointestinal: Absent: abdominal pain, nausea Genitourinary male: Absent: dysuria Musculoskeletal: Absent: arm pain, back pain Skin: Absent: rash Neurological: Present: weakness, numbness, confusion, abnormal gait. Absent: headache Psychiatric: Absent: anxiety Endocrine: Absent: cold intolerance Hematological/Lymphatic: Absent: easy bleeding Allergic/Immunologic: Absent: facial swelling Medical,Surgical,& Family Hx - Medical History Cardio: History of: Cardiac Dysrhythmia (1 episode a-fib (self limiting) remote past w/ pain & uncontrolled HTN), CHF (recently diagnoses), Hypertension ( internal heart monitor to left chest) No history of: CAD, MT, Pacemaker, PVD, Valvular Heart Disease Psychological: No history of: Anxiety Disorders, ADHD, Behavior Problems, Bipolar Disorder, Depression, Previous Suicide Attempt, Psychiatric/Substance Abuse Tx, Schizophrenia, Violent Behavior, Psychiatric Problems Neurology: No history of: Dementia, TIA Endocrine: No history of: Diabetes Mellitus (IDDM), Diabetes Mellitus (NIDDM), Dyslipidemia, Thyroid Disorder Rheumatology: No history of;: Rheumatoid Arthritis Respiratory: History of: Pneumonia No history of: Obstructive Sleep Apnea Renal: History of: Renal Failure No history of: Dialysis Gastrointestinal: No history of: GERD, Gastrointestinal Bleed Musculoskeletal: History of: Back/Neck Problems Hematology: No history of: Anemia, Blood Transfusion Reaction Other: No history of: Anesthesia Reactions - Surgical History Cardiac Surgeries: Sugical HX of: Cardiac Catheterization Patient Denies: Carotid Endarterectomy, Internal Defibrillator Thoracic Surgeries: Patient denies;: Organ Transplant HEENT Surgeries: Patient denies: Carotid Endarterectomy - Family History Family History: Reports;: Family Cancer (mother (stomach cancer)), Family Hypertension (mother and father) Denies;: Family Anesthesia Reaction - Social History Smoking Status: Former smoker Frequency of Alcohol Use: None Type of Drug Use: None Exam Vital Signs: Vital Signs Temperature 97.8 F 04/29/17 19:10 Pulse Rate 74 04/29/17 19:10 Respiratory Rate 18 04/29/17 19:10 Blood Pressure 181/81 04/29/17 19:10 O2 Sat by Pulse Oximetry 97 04/29/17 19:01 - General General appearance: alert, in no apparent distress - Head Head exam: Present: atraumatic, normocephalic - Eye Eye exam: Present: PERRL, EOMI - ENT ENT exam: Present: mucous membranes moist. Absent: mucous membranes dry - Neck Neck exam: Present: full ROM. Absent: tenderness - Chest Chest inspection: Present: symmetric chest wall rise. Absent: tenderness - Respiratory Respiratory exam: Present: rhonchi - Cardiovascular Cardiovascular exam: Present: regular rate, normal rhythm, normal heart sounds. Absent: bradycardia - Extremities Exam Extremities exam: Absent: normal inspection (pronator drift RUE; positive babinski RLE) - Back Exam Back exam: Present: full ROM. Absent: tenderness - Neurological Exam Neurological exam: Present: alert, oriented X3, other (right facial droop; decreased sensation on the right side; pronator drift RUE) - Psychiatric Psychiatric exam: Present: normal affect, normal mood - Skin Skin exam: Present: warm, dry, intact, normal color. Absent: rash Course - Consultations Consultation #1: Hospitalist will admit patient Time: 20:58 Results - Labs CBC & BMP: 04/29/17 20:08 04/29/17 20:15 Lab Results: I have reviewed the patients labs Labs: Laboratory Tests 04/29/17 04/29/17 20:08 20:08 WBC 4.0 RBC 5.22 Hgb 15.4 Hct 45.2 MCV 86.6 L Plt Count 167 INR 1.0 PT Patient/Control Mix 10.7 Circ Anticoag PTT 31.7 Laboratory Tests 04/29/17 20:15 Sodium 142 Potassium 3.5 Chloride 106 Carbon Dioxide 28 BUN 21 H Creatinine 1.80 H GFR Calculation 70 Glucose 92 AST 9 Troponin I 0.050 H Globulin 3.7 H Albumin/Globulin Ratio 0.9 L Serum Alcohol < 15 L - Diagnostic Findings Procedure: CT - chest: report reviewed by me (No acute cardiopulmonary pathology indentified.), CT: report reviewed by me (Head/Brain: No acute intracranial abnormality is identified. Incomplete evaluation of polypoidal mucosal finding in the left maxillary sinus.) Disposition Clinical Impression: Right sided weakness, History of CHF (congestive heart failure), CVA (cerebral vascular accident) Case discussed with: patient, patient's family Disposition: Still a Patient Condition: Stable Time of Disposition: 21:06 NIH Stroke Score - Stroke Score Initial Assessment Level of Consciousness: Alert Level of Consciousness Questions: Answers Both Correctly Level of Consciousness Commands: Obeys Both Correctly Best Gaze: Normal Visual Rodriguez: No Visual Loss Facial Palsy: Normal Motor - Right Arm: Drift Motor - Left Arm: No Drift Motor - Right Leg: No Drift Motor - Left Leg: No Drift Limb Ataxia: Absent Sensory (Pin Prick): Partial Loss Best Language: Normal Dysarthria: Mild to Moderate Extinction / Inattention (Neglect): No Neglect NIH Stroke Score: 3
[2017-04-29 20:28] LABS: Basophils % 0.5 % (0.0-0.8); Eosinophils # 0.1 10*3/uL (0.0-0.87); Eosinophils % 1.8 % (0.00-10.9); Hematocrit 45.2 VOL% (42.0-52.0); Hemoglobin 15.4 GM/DL (14.0-18.0); Immature Granulocytes % 0.3 %; Immature Granulocytes Absolute 0.01 #; Lymphocytes # 1.6 10*3/uL (1.4-4.0); Lymphocytes % 40.7 % (21.2-54.2); Mean Corpuscular HGB Conc 34.1 GM/DL (32-36); Mean Corpuscular Hemoglobin 30 PG (27-34); Mean Corpuscular Volume 86.6 FL (87-102); Mean Platelet Volume 10.4 FL (9.6-12.0); Monocytes # 0.4 10*3/uL (0.11-0.8); Monocytes % 10.1 % (1.7-12.7); Neutrophils # 1.9 10*3/uL (1.4-7.4); Neutrophils % 46.6 % (38.7-73.9); Platelet Count 167 T/CUMM (130-400); Red Blood Count 5.22 MC/CUMM (3.8-5.5); Red Cell Distribution Width 15.4 % (9.3-17.3)
[2017-04-29 20:36] LABS: PT Patient Result 10.7 SECS; Partial Thromboplastin Time 31.7 SECS (0-40)
[2017-04-29 20:54] LABS: Alanine Aminotransferase 17 U/L (16-61); Albumin 3.4 G/DL (3.4-5.0); Alkaline Phosphatase 78 U/L (45-117); Aspartate Amino Transferase 9 U/L (0-37); Blood Urea Nitrogen 21 MG/DL (7-18); Calcium 8.6 MG/DL (8.5-10.1); Glucose 92 MG/DL (74-106); Osmolality,Calculated 285.1 MOS/KG (273-304); Potassium 3.5 MMOL/L (3.5-5.1); Sodium 142 MMOL/L (136-145); Total Protein 7.1 G/DL (6.4-8.3)
--- NOTE | 2017-04-29 22:25 | Hospitalist History & Physical ---
Assessment and Plan (1) Hypertension Status: Acute Current Visit: No (2) Right sided weakness Status: Acute Current Visit: Yes (3) History of CHF (congestive heart failure) Status: Acute Current Visit: Yes (4) CVA (cerebral vascular accident) Status: Acute Assessment and plan: We will admit patient our service. Patient will be placed on monitored bed. Will do a stroke workup on him. He is CT scan of his head is negative but clinically he has had a stroke. Will continue home meds as appropriate and reevaluate patient in the morning. Current Visit: Yes History of Present Illness Chief complaint: Right-sided weakness and slurred speech History of present illness: Mr. Villanueva is a 37 year old male with multiple medical problems including hypertension congestive heart failure and A. fib who was in his normal state of health till this morning. Patient reports that he first noted that his arm was weak. He reports it felt heavy and numb. He felt a little off balance at times notes that he was dragging his right foot. He really did not get that concerned about his condition until is his voice started slurring. In the past similar symptoms have happened to him approximately 1 month ago but they resolved and he said he did not get any medical attention and thought that that was going occur today. When his symptoms did not resolve he got concerned that he might be having a stroke and came up to our hospital for further evaluation. Patient had a history of noncompliance in the past but reports he has been compliant now I was consulted to admit him. Home Medications Medication Instructions Recorded Confirmed Type Furosemide Tab [Lasix Tab] 80 mg PO BID DIURETIC #60 tablet 01/31/17 04/13/17 Rx hydrALAZINE TAB [Apresoline Tab] 50 mg PO BID #60 tablet 01/31/17 04/13/17 Rx Isosorbide Mononitrate [Imdur] 60 mg PO QAM 03/25/17 04/13/17 History Aspirin 325 mg PO DAILY 04/13/17 04/13/17 History Indomethacin Cap [Indocin Cap] 25 mg PO TID #30 capsule 04/13/17 Rx Tizanidine HCl [Zanaflex] 2 mg PO Q6H #40 capsule 04/13/17 Rx predniSONE TAB [PredniSONE] 20 mg PO DAILY #15 tablet 04/13/17 Rx Allergies Allergy/AdvReac Type Severity Reaction Status Date / Time No Known Allergies Allergy Verified 04/29/17 19:04 Medical,Surgical,& Family Hx - Medical History Cardio: History of: Cardiac Dysrhythmia (1 episode a-fib (self limiting) remote past w/ pain & uncontrolled HTN), CHF (recently diagnoses), Hypertension ( internal heart monitor to left chest) No history of: CAD, ID, Pacemaker, PVD, Valvular Heart Disease Psychological: No history of: Anxiety Disorders, ADHD, Behavior Problems, Bipolar Disorder, Depression, Previous Suicide Attempt, Psychiatric/Substance Abuse Tx, Schizophrenia, Violent Behavior, Psychiatric Problems Neurology: No history of: Dementia, TIA Endocrine: No history of: Diabetes Mellitus (IDDM), Diabetes Mellitus (NIDDM), Dyslipidemia, Thyroid Disorder Rheumatology: No history of;: Rheumatoid Arthritis Respiratory: History of: Pneumonia No history of: Obstructive Sleep Apnea Renal: History of: Renal Failure No history of: Dialysis Gastrointestinal: No history of: GERD, Gastrointestinal Bleed Musculoskeletal: History of: Back/Neck Problems Hematology: No history of: Anemia, Blood Transfusion Reaction Other: No history of: Anesthesia Reactions - Surgical History Cardiac Surgeries: Sugical HX of: Cardiac Catheterization Patient Denies: Carotid Endarterectomy, Internal Defibrillator Thoracic Surgeries: Patient denies;: Organ Transplant HEENT Surgeries: Patient denies: Carotid Endarterectomy - Family History Family History: Reports;: Family Cancer (mother (stomach cancer)), Family Hypertension (mother and father) Denies;: Family Anesthesia Reaction - Social History Smoking Status: Former smoker Frequency of Alcohol Use: None Type of Drug Use: None 12 point system: reviewed and no additional remarkable complaints except as stated Exam - Constitutional Vitals: Period Temp Pulse Resp BP Sys/Hurtado Pulse Ox Last 24 Hr 97.8 F-98.6 F 74-92 18-18 131-181/81-92 97 - General General appearance: alert, in no apparent distress - Head Head exam: Present: atraumatic, normocephalic - Eye Eye exam: Present: PERRL, EOMI - ENT ENT exam: Present: mucous membranes moist. - Neck Neck exam: Present: full ROM. Absent: tenderness - Chest Chest inspection: Present: symmetric chest wall rise. - Respiratory Respiratory exam: Present: Grossly clear - Cardiovascular Cardiovascular exam: Present: regular rate, normal rhythm, normal heart sounds. - Extremities Exam Extremities exam: Absent: Patient has pronator drift on right upper extremity . - Back Exam Back exam: Present: full ROM. Absent: tenderness - Neurological Exam Neurological exam: Present: alert, oriented X3, patient does have right facial droop. He has decreased sensation on his right upper extremity. He has decreased turret lathe tender strength and decreased flexion on right upper extremity right lower extremity decrease flexion/ extension - Psychiatric Psychiatric exam: Present: normal affect, normal mood - Skin Skin exam: Present: warm, dry, intact, normal color. Absent: rash Results - Labs CBC & BMP: 04/29/17 20:08 04/29/17 20:15
[2017-04-29] MEDS ORDERED: LABETALOL 20 MG/4 ML SYRINGE IV PRN (22:35)
[2017-04-29 23:02] LABS: Risk Ratio 5.18; VLDL CHOLESTEROL 21.8 MG/DL
[2017-04-30] MEDS: ENOXAPARIN 40 MG/0.4 ML SYRINGE SUBCUT SCH ×2 (00:45→23:14)
[2017-04-30 01:03] LABS: Apearance,Urine CLEAR (Clear); Bilirubin,Urine Negative (Negative); Blood, Urine Negative (Negative); Glucose,Urine (UA) Negative (Negative); Ketones,Urine Negative (Negative); Mucus,Urine Occasional /LPF (Occasional); Nitrite,Urine Negative (Negative); Protein,Urine 100 MG/DL; RBC,Urine <1 /HPF (0-4); Urine Color Yellow (Yellow); Urine Specific Gravity 1.012 (1.001-1.035); WBC,Urine <1 /HPF (0-6)
[2017-04-30 01:22] LABS: Barbiturates Screen,Urine Negative (Negative); Benzodiazepines Screen,Urine Negative (Negative); Cannabinoid Screen,Urine Positive (Negative); Opiate Screen,Urine Negative (Negative); Phencyclidine Screen,Urine Negative (Negative)
--- NOTE | 2017-04-30 04:05 | EKG Report ---
Stationary ECG Study [facility] ER Test Date: 04/29/2017 8:12:58 PM Pat Name: YANA SCHAFFER Department: Room: 545 Gender: M [employer]: : 1980 Requested by: Av Valadez Order Number: [id number] Reading MD: YESI SCHNEIDER Intervals [place] Rate: 75 P: 35 CO: 205 QRS: -2 QRSD: 92 T: 8 QT: 413 QTc: 441 Interpretive Statements SINUS RHYTHM POSSIBLE LEFT ATRIAL ENLARGEMENT POSSIBLE LEFT VENTRICULAR HYPERTROPHY Electronically Signed On 04-30-17 13:05:20 CDT by YESI SCHNEIDER [email or web address]
--- NOTE | 2017-04-30 07:53 | Ultrasound Report ---
US carotid duplex BI Indication: Weakness. Comparison: Carotid ultrasound dated March 26, 2009. Technique: Multiple longitudinal and transverse real-time sonographic images of the bilateral carotid arterial systems are obtained with grayscale, spectral, and color Doppler analysis. Findings: Peak systolic velocities within the right CCA, proximal ICA, and distal ICA are 57, 66, and 42 cm/s respectively. Peak systolic velocities within the left CCA, proximal ICA, and distal ICA are 60, 78, and 40 cm/s respectively. ICA/CCA ratios on the right and left are 1.2 and 1.3 respectively. Antegrade flow demonstrated within the bilateral vertebral arteries. Grayscale imaging demonstrates mild bilateral atherosclerotic plaque. IMPRESSION: No convincing sonographic evidence of significant (50% or greater) narrowing of either cervical internal carotid artery. Indirect NASCET criteria utilized. PROCEDURE INTERPRETED AT [facility] DEPARTMENT OF RADIOLOGY Final Report Signed by: Dr Ignacio Flood
--- NOTE | 2017-04-30 07:59 | EKG Report ---
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
--- NOTE | 2017-04-30 08:33 | Neurology Consult Note ---
History of Present Illness History of present illness: Mr. Villanueva is a 37 year old right-handed -[place] gentleman with past medical history significant for congestive heart failure, chronic kidney disease , poorly controlled hypertension presented today for the evaluation of right arm and leg numbness and tingling started yesterday morning. This has resolved at this point. Patient reported that he had a similar episode almost a month and a half ago which lasted for couple of hours or so. No speech difficulties reported with these symptoms. No swallowing problems or no weakness reported such however he does have some difficulty in walking because of questionable right leg weakness. CT of the head reveals no acute abnormalities. Patient is due to get MRI of the brain done. Drug screen is positive for cannabinoids. BUN/creatinine is borderline high. Diastolic pressure is still running somewhat high. Plavix has been added to his medications. Home Medications Medication Instructions Recorded Confirmed Type Furosemide Tab [Lasix Tab] 80 mg PO BID DIURETIC #60 tablet 01/31/17 04/30/17 Rx hydrALAZINE TAB [Apresoline Tab] 50 mg PO BID #60 tablet 01/31/17 04/30/17 Rx Isosorbide Mononitrate [Imdur] 60 mg PO QAM 03/25/17 04/30/17 History Aspirin 325 mg PO DAILY 04/13/17 04/30/17 History Allergies Allergy/AdvReac Type Severity Reaction Status Date / Time No Known Allergies Allergy Verified 04/29/17 19:04 12 point system: reviewed and no additional remarkable complaints except as stated Medical,Surgical,& Family Hx - Medical History Cardio: History of: Cardiac Dysrhythmia (1 episode a-fib (self limiting) remote past w/ pain & uncontrolled HTN), CHF (recently diagnoses), Hypertension ( internal heart monitor to left chest) No history of: Cerebrovascular Disease, CAD, [place], Pacemaker, PVD, Valvular Heart Disease Psychological: No history of: Anxiety Disorders, ADHD, Behavior Problems, Bipolar Disorder, Depression, Previous Suicide Attempt, Psychiatric/Substance Abuse Tx, Schizophrenia, Violent Behavior, Psychiatric Problems Neurology: No history of: Dementia, TIA Endocrine: No history of: Diabetes Mellitus (IDDM), Diabetes Mellitus (NIDDM), Dyslipidemia, Thyroid Disorder Rheumatology: No history of;: Rheumatoid Arthritis Respiratory: History of: Pneumonia No history of: Obstructive Sleep Apnea Renal: History of: Renal Failure No history of: Dialysis Gastrointestinal: No history of: GERD, Gastrointestinal Bleed Musculoskeletal: History of: Back/Neck Problems Hematology: No history of: Anemia, Blood Transfusion Reaction Other: No history of: Anesthesia Reactions - Surgical History Cardiac Surgeries: Sugical HX of: Cardiac Catheterization Patient Denies: Carotid Endarterectomy, Internal Defibrillator Thoracic Surgeries: Patient denies;: Organ Transplant HEENT Surgeries: Patient denies: Carotid Endarterectomy - Family History Family History: Reports;: Family Cancer (mother (stomach cancer)), Family Hypertension (mother and father) Denies;: Family Anesthesia Reaction - Social History Smoking Status: Former smoker Frequency of Alcohol Use: None Type of Drug Use: None Exam - Constitutional Vitals: Period Temp Pulse Resp BP Sys/Hurtado Pulse Ox Last 24 Hr 96.6 F-98.6 F 62-92 18-20 131-181/76-98 94-100 Exam: GENERAL: Patient is in no acute distress. NECK: Neck is supple. There is no JVD. No carotid bruits present. No thyroid masses. CVS: First and second heart sounds are normal. There is no S3 present. Regular rate and rhythm. RESPIRATORY: Lungs are clear to auscultation without any rales or rhonchi. ABDOMEN: Soft and non-tender. Bowel sounds are present. There is no hepatosplenomegaly. EXT: There is no palpable edema. Peripheral pulses are present. Skin: No rashes Central Nervous system: General: Alert, awake and Oriented x 3 Speech: Fluent Comprehension: Intact and normal Facial expressions: Normal Cranial Nerves: CN1/Olfactory: Normal CN II/ Optic: Normal, Visual Rodriguez unreliable CN III, and : RENÉ & EOMI CN V: Normal & intact CN VII: face is symmetric CNVIII: Normal CN XI/X/XI/XII: Intact and Normal Motor: Bulk and Tone is normal. Strength in the right 5/5 Strength in the left 5/5 Sensory: Grossly intact for all the modalities of PP, LT and temp sense Reflexes: 1+ and symmetrical Cerebellar function: Normal finger to nose and heel to nixon testing. Toes: Equivocal Gait: Normal Results - Labs CBC & BMP: 04/29/17 20:08 04/29/17 20:15 Assessment and Plan (1) TIA (transient ischemic attack) Status: Acute Assessment and plan: Patient has significant risk factors and I suspect TIA at this point. Continue aspirin and Plavix for now Agree with MRI of the brain. Add Crestor 10 mg daily Thank you for the consult. We will follow Current Visit: Yes
--- NOTE | 2017-04-30 09:01 | Hospitalist Progress Note ---
<BradfordGuanakito - Last Filed: 04/30/17 09:11> Assessment and Plan - Time spent with patient Time spent with patient: Less than 30 minutes Time spent discussing smoking cessation with patient: 3 to 10 minutes (1) Hypertension Status: Acute Assessment and plan: Blood pressures remain markedly elevated despite the use of multiple antihypertensive agents. We will increase hydralazine to 50 mg 3 times daily at 6 AM/2 PM/10 PM. Will reassess blood pressures in a.m. Current Visit: No (2) CVA (cerebral vascular accident) Status: Acute Assessment and plan: Mild right-sided weakness remains; no other obvious neurological deficits noted. We will continue to provide supportive measures. MRI scheduled this p.m. we will await results and neurology consultation. Current Visit: Yes Hospitalist: Subjective Interval history: Patient seen and examined; chart reviewed. No significant overnight events reported per staff. Awaiting neurology consultation. MRI this afternoon. Exam - Constitutional Vitals: Period Temp Pulse Resp BP Sys/Hurtado Pulse Ox Last 24 Hr 96.6 F-98.6 F 62-92 18-20 131-181/76-98 94-100 General appearance: normal weight, no acute distress - Head Head exam: Present: normal inspection, normocephalic, atraumatic - Eye Eye exam: Present: EOMI. Absent: conjunctival injection Pupils: Present: RENÉ, normal accommodation - ENT ENT exam: Present: normal exam, normal external ear exam, normal oropharynx - Neck Neck exam: Present: normal inspection. Absent: lymphadenopathy, meningismus, tenderness, thyromegaly - Respiratory Respiratory exam: Present: clear to auscultation bilaterally. Absent: rales, rhonchi, stridor, wheezes - Cardiovascular Cardiovascular exam: Present: regular rate and rhythm. Absent: carotid bruit, diastolic murmur, gallop, JVD, rubs, systolic murmur - GI/Abdominal GI/Abdominal exam: Present: normal bowel sounds, soft - Extremities Exam Extremities exam: Present: other Results - Labs CBC & BMP: 04/29/17 20:08 04/29/17 20:15 Quality Measures - Stroke Onset of Symptoms Date: 04/29/17 Onset of Symptoms Time: 09:30 Symptom Onset Unknown: No <Alicia Rasmussen - Last Filed: 04/30/17 12:48> Hospitalist: Subjective Interval history: Neuro has seen and has made recommendations.His troponin is also elevated so we will follow Echo and cardiology's recommendations.We will add Coreg to his bp meds and follow response Exam - Constitutional Vitals: Period Temp Pulse Resp BP Sys/Hurtado Pulse Ox Last 24 Hr 96.6 F-98.6 F 62-92 18-20 131-181/76-98 94-100 Results - Labs CBC & BMP: 04/30/17 10:05 04/30/17 10:05
[2017-04-30] MEDS: ASPIRIN 325 MG TABLET PO SCH (10:15)
[2017-04-30] MEDS: ISOSORBIDE MONONITRATE 60 MG TABLET PO SCH (10:15)
[2017-04-30] MEDS: FUROSEMIDE 80 MG TABLET PO SCH ×2 (10:15→16:13)
[2017-04-30] MEDS: CLOPIDOGREL 75 MG TABLET PO SCH (10:15)
[2017-04-30 10:25] LABS: Basophils % 0.3 % (0.0-0.8); Eosinophils # 0.1 10*3/uL (0.0-0.87); Eosinophils % 2.1 % (0.00-10.9); Hematocrit 47.1 VOL% (42.0-52.0); Immature Granulocytes % 0.3 %; Immature Granulocytes Absolute 0.01 #; Lymphocytes # 1.4 10*3/uL (1.4-4.0); Lymphocytes % 42.9 % (21.2-54.2); Mean Corpuscular Hemoglobin 30 PG (27-34); Mean Corpuscular Volume 87.5 FL (87-102); Mean Platelet Volume 10.8 FL (9.6-12.0); Monocytes # 0.3 10*3/uL (0.11-0.8); Monocytes % 10.3 % (1.7-12.7); Neutrophils # 1.5 10*3/uL (1.4-7.4); Neutrophils % 44.1 % (38.7-73.9); Platelet Count 160 T/CUMM (130-400); Red Blood Count 5.38 MC/CUMM (3.8-5.5); Red Cell Distribution Width 15.4 % (9.3-17.3); White Blood Count 3.3 T/CUMM (4-12)
[2017-04-30 11:07] LABS: Troponin I Only 0.059 NG/ML (0.00-0.045)
[2017-04-30 11:08] LABS: Albumin 3.3 G/DL (3.4-5.0); Bilirubin,Total 0.4 MG/DL (0.2-1.0); Calcium 8.6 MG/DL (8.5-10.1); Osmolality,Calculated 282.3 MOS/KG (273-304); Potassium 3.6 MMOL/L (3.5-5.1)
[2017-04-30] MEDS ORDERED: LORazepam 2 MG/1 ML VIAL IV ONE (12:10)
[2017-04-30] MEDS ORDERED: amLODIPine 5 MG TABLET PO SCH (13:00)
--- NOTE | 2017-04-30 15:48 | Magnetic Resonance Report ---
Exam: MR head/brain wo con Date: 04/30/2017 4:00 AM Comparison: CT brain 04/29/2017 Indication: Slurred speech with arm weakness, CVA Technique:[Multiple acquisitions were obtained including sagittal T1, coronal T2, and axial ADC, diffusion, FLAIR, T2, GRE, and T1 scans without contrast only. Findings: The ventricles are normal in size with no midline displacement. The pituitary has normal appearance and the cerebellar tonsils are normal in their location. No acute infarction is identified on the diffusion scans. No evidence of hemorrhage, mass, or extracerebral collection. Diffuse atrophy and FLAIR/T2 hyperintensities. Enlarged perivascular spaces are noted which represent a normal variant. 28 mm right and 24 mm left retention cysts in the inferior maxillary sinuses. No acute findings in the orbits, temporal bones, or [place]. Impression: No acute infarction is identified. Findings which can be seen with minimal microvascular disease. T2 hyperintensities can also be assessed with demyelinating disease, vasculitis, viral illness, etc. Retention cysts in the maxillary sinuses. PROCEDURE INTERPRETED AT [facility] DEPARTMENT OF RADIOLOGY Final Report Signed by: Dr. Radha Manzanares
[2017-04-30] MEDS: CARVEDILOL 12.5 MG TABLET PO SCH (16:13)
--- NOTE | 2017-04-30 17:00 | Cardiology Consult Note ---
I, Amira Theodore RN, am scribing for, and in the presence of, Roni Frost MD 16:59. Assessment and Plan - Time spent with patient Time spent with patient: Greater than 30 minutes (Due to assessment, planning, documentation, medication review) (1) History of CHF (congestive heart failure) Status: Chronic Assessment and plan: 1. 37-year-old BM recent smoker (reportedly quit over 2 weeks ago) with nonischemic cardiomyopathy (presumed hypertensive with EF 25-30% February 2017), who presented with right-sided weakness suggestive of CVA, with unremarkable MRI today. 2. Class IIb/IIIa [place] [employer] heart failure symptoms which are fairly stable and unchanged for months 3. He reports history of atrial fibrillation in the past but there is no evidence of that on previous hospitalizations (I reviewed all EKGs in their sinus), and he has a loop recorder placed at [place] 2 years ago; we can try to get this interrogated if the battery is still good. 4. Defer to neurology regarding best anticoagulation strategy 5. LDL in the upper 120; start high intensity statin therapy. 6. Modest CKD noted with stable creatinine 7. Low-dose beta-hansel therapy, with diuretic therapy as needed. 8. We will follow with you Current Visit: No (2) Right sided weakness Status: Acute Current Visit: Yes (3) Acute renal failure Status: Acute Current Visit: Yes (4) Hypertension Status: Chronic Current Visit: Yes (5) Noncompliance Status: Chronic Current Visit: Yes History of Present Illness - Data of Consult Patient: known to practice within the last 3 years Consult date: 04/30/17 Requesting Physician: Alicia Rasmussen - Consult Narrative Reason for consult: History of hypertension History of present illness: Machine Cloth Examiner: Dr. Campbell PCP: None Mr. Villanueva is a 37 year old male who is routinely followed by Dr. Campbell with a history of heart failure, hypertension, chronic kidney disease, and noncompliance. He last saw Dr. Campbell in the office February 22, 2017. He tells me that he goes in and out of atrial fibrillation but I find no record of this documented. He is not on any antiarrhythmics. He is not on any blood thinners , just on a baby aspirin. He says he was on a blood thinner, unsure what it was , and states it was discontinued at some point. He is unsure why it was discontinued. He had a heart catheterization in November 2009 was done in the recurrent episodes of chest pain. Heart cath revealed large and widely patent right and left coronary artery systems, no mitral regurgitation, no aortic valve gradient, and normal systolic function with ejection fraction of 55%. He had an implantable loop recorder placed by Dr. Yee at [place] several years ago. He says this has not been checked in a while. Echocardiogram done January 2017 with ejection fraction of 25-30%. Family history includes parents with hypertension mother with cancer, and sister with diabetes and cancer. He reports he stopped smoking 3 weeks ago. Before that he smoked 1 pack a week and had for about 12 years. He was in his usual state of health until yesterday when he began to experience right-sided weakness and numbness. He also experienced pain in his right arm and leg. He reports no problems with speech or swallowing. He says yesterday he was having to drag his right leg when he would walk. He denies any chest pain. He does state he has had some dyspnea on exertion. This is about 2 months ago he had an episode of dizziness that was followed by a syncopal episode. He is unsure how long he was out, but thinks it was only a few minutes. Afterward he just felt dizzy and weak. Creatinine was 1.80 on admission. Troponins have been trivially elevated at 0.050, 0.052, and 0.059. It should be noted that he has had elevated enzymes in the past as well. Urine drug screen was positive for cannabinoids. EKG on admission showed sinus rhythm with heart rate of 75. There are no scanned in strips of anything other than sinus rhythm. I had the court monitor check and she saw no rhythm other than sinus since admission. No acute cardiopulmonary pathology was identified by chest x-ray. Carotid ultrasound showed no evidence of significant narrowing of either cervical internal carotid artery. CT of the head identified no acute intracranial abnormality. MRI of the brain is scheduled to be done today. Today Mr. Villanueva is seen resting in bed in no acute distress. He reports his right-sided pain and numbness have subsided. He does continue to have some weakness, but it is improved. His pressures are elevated, this morning was 163/ 96. His hydralazine has been restarted, but had increased dose of 50 mg 3 times daily. He also has labetalol ordered as needed. He has been started on Plavix 75 mg daily. Creatinine has improved 1.60 this morning. CC: Alicia Rasmussen MD - Home Medications and Allergies Home Medications: Home Medications Medication Instructions Recorded Confirmed Type Furosemide Tab [Lasix Tab] 80 mg PO BID DIURETIC #60 tablet 01/31/17 04/30/17 Rx hydrALAZINE TAB [Apresoline Tab] 50 mg PO BID #60 tablet 01/31/17 04/30/17 Rx Isosorbide Mononitrate [Imdur] 60 mg PO QAM 03/25/17 04/30/17 History Aspirin 325 mg PO DAILY 04/13/17 04/30/17 History Allergies/Adverse Reactions: Allergies Allergy/AdvReac Type Severity Reaction Status Date / Time No Known Allergies Allergy Verified 04/29/17 19:04 - Constitutional Constitutional: Present: as per HPI - EENT Eyes: Present: loss of vision. Absent: blurry vision Ears: Absent: decreased hearing, ear pain, tinnitus Nose, mouth and throat: Absent: dysphagia, epistaxis, headache(s), neck pain, sore throat - Cardiovascular Cardiovascular: Present: dyspnea on exertion, lightheadedness, palpitations. Absent: chest pain at rest, chest pain with activity, diaphoresis, dyspnea, edema, radiating jaw, neck or arm pain, orthopnea - Respiratory Respiratory: Present: dyspnea on exertion. Absent: cough, dyspnea, hemoptysis, wheezing - Gastrointestinal Gastrointestinal: Absent: abdominal pain, constipation, diarrhea, hematemesis, hematochezia, melena, nausea, vomiting - Genitourinary Genitourinary: Absent: dysuria, hematuria - Musculoskeletal Musculoskeletal: Present: limited range of motion, muscle weakness. Absent: back pain - Neurological Neurological: Present: abnormal gait, dizziness, syncope. Absent: abnormal speech, confusion, frequent falls, headache(s) - Psychiatric Psychiatric: Absent: anxiety, depression - Endocrine Endocrine: Absent: fatigue - Hematologic/Lymphatic Hematologic/Lymphatic: Absent: easy bleeding, easy bruising Medical,Surgical,& Family Hx - Medical History Cardio: History of: Cardiac Dysrhythmia (1 episode a-fib (self limiting) remote past w/ pain & uncontrolled HTN), CHF, Hypertension No history of: Cerebrovascular Disease Respiratory: History of: Pneumonia Renal: History of: Renal Failure Musculoskeletal: History of: Back/Neck Problems - Surgical History Cardiac Surgeries: Sugical HX of: Cardiac Catheterization Additional Surgical History: Implantable cardiac event recorder - Family History Family History: Reports;: Family Cancer (mother (stomach cancer), sister), Family Diabetes (Cyst), Family Hypertension (mother and father) - Social History Smoking Status: Former smoker (Reportedly quit 3 weeks ago) Have you smoked in the last 12 months: Yes Time spent discussing smoking cessation with patient: 3 to 10 minutes Frequency of Alcohol Use: None Type of Drug Use: Marijuana (He denies use, but drug screen was positive) Lives With:: Girlfriend's mother Functional capacity: independent ambulation Physical Examination Vital Signs Temp Pulse Resp BP Pulse Ox 98.6 F 92 H 18 131/92 97 04/29/17 19:01 04/29/17 19:01 04/29/17 19:01 04/29/17 19:01 04/29/17 19:01 General: Present: Appears Well, No Apparent Distress HEENT: Present: PERRL, Mucus Membranes Moist Neck: Present: Supple Neck, Midline Trachea, No Bruit Cardiac: Present: Reg Rate and Rhythm, No Murmur Lungs: Present: Normal Breath Sounds, No Wheeze, Rales, Rhonchi Neuro: Absent: Resting Tremor, Essential Tremor Abdomen: Present: Soft, Active Bowel Sounds, Non-Tender. Absent: Distended Skin: Absent: Rash, Suspicious Lesions Musculoskeletal: Present: No Pain, Normal Range of Motion Extremities: Present: No Edema, Normal Upper Extr. Pulses, Normal Lower Extr. Pulses Result/EKG - Labs CBC & BMP: 04/30/17 10:05 04/30/17 10:05 Lab Results: I have reviewed the past 24 hour labs Labs: Laboratory Results - last 24 hr 04/29/17 04/29/17 04/29/17 00:34 00:34 20:08 WBC 4.0 RBC 5.22 Hgb 15.4 Hct 45.2 MCV 86.6 L MCH 30 MCHC 34.1 RDW 15.4 Plt Count 167 MPV 10.4 Neut % (Auto) 46.6 Lymph % (Auto) 40.7 [place] % (Auto) 10.1 Eos % (Auto) 1.8 Baso % (Auto) 0.5 Neut # (Auto) 1.9 Lymph # (Auto) 1.6 [place] # (Auto) 0.4 Eos # (Auto) 0.1 Baso # (Auto) 0.0 Immature Gran % 0.3 Nucleated RBC % 0.0 Immature Gran # 0.01 Nucleated RBCs # 0.00 Immature Plt Fraction 0.0 INR PT Patient/Control Mix Circ Anticoag PTT Sodium Potassium Chloride Carbon Dioxide Anion Gap BUN Creatinine GFR Calculation BUN/Creatinine Ratio Glucose Hemoglobin A1c Calculated Osmolality Calcium Magnesium Total Bilirubin AST ALT Alkaline Phosphatase Total Creatine Kinase CK-MB (CK-2) Troponin I Total Protein Albumin Globulin Albumin/Globulin Ratio Triglycerides Cholesterol LDL Cholesterol VLDL Cholesterol HDL Cholesterol Heart Disease Risk Ratio Urine Color Yellow Urine Appearance Clear Urine pH 5.0 Ur Specific [place] 1.012 Urine Protein 100 Urine Glucose (UA) Negative Urine Ketones Negative Urine Blood Negative Urine Nitrate Negative Urine Bilirubin Negative Urine Urobilinogen 2.0 H Urine Leukocytes Negative Urine RBC <1 Urine WBC <1 Urine Mucus Occasional Ur Culture Indicated? Not indicated Urine Opiates Screen Negative Ur Barbiturates Screen Negative Ur Phencyclidine Scrn Negative U Amphetamine/Methamph Negative U Benzodiazepines Scrn Negative U Cocaine Metab Screen Negative U Cannabinoids Screen Positive H Serum Alcohol 04/29/17 04/29/17 04/29/17 20:08 20:08 20:08 WBC RBC Hgb Hct MCV MCH MCHC RDW Plt Count MPV Neut % (Auto) Lymph % (Auto) [place] % (Auto) Eos % (Auto) Baso % (Auto) Neut # (Auto) Lymph # (Auto) [place] # (Auto) Eos # (Auto) Baso # (Auto) Immature Gran % Nucleated RBC % Immature Gran # Nucleated RBCs # Immature Plt Fraction INR 1.0 PT Patient/Control Mix 10.7 Circ Anticoag PTT 31.7 Sodium Potassium Chloride Carbon Dioxide Anion Gap BUN Creatinine GFR Calculation BUN/Creatinine Ratio Glucose Hemoglobin A1c 6.2 Calculated Osmolality Calcium Magnesium Total Bilirubin AST ALT Alkaline Phosphatase Total Creatine Kinase CK-MB (CK-2) Troponin I Total Protein Albumin Globulin Albumin/Globulin Ratio Triglycerides 109 Cholesterol 202 H LDL Cholesterol 127.0 VLDL Cholesterol 21.8 HDL Cholesterol 39 L Heart Disease Risk Ratio 5.18 Urine Color Urine Appearance Urine pH Ur Specific [place] Urine Protein Urine Glucose (UA) Urine Ketones Urine Blood Urine Nitrate Urine Bilirubin Urine Urobilinogen Urine Leukocytes Urine RBC Urine WBC Urine Mucus Ur Culture Indicated? Urine Opiates Screen Ur Barbiturates Screen Ur Phencyclidine Scrn U Amphetamine/Methamph U Benzodiazepines Scrn U Cocaine Metab Screen U Cannabinoids Screen Serum Alcohol 04/29/17 04/29/17 04/30/17 20:15 20:15 03:16 WBC RBC Hgb Hct MCV MCH MCHC RDW Plt Count MPV Neut % (Auto) Lymph % (Auto) [place] % (Auto) Eos % (Auto) Baso % (Auto) Neut # (Auto) Lymph # (Auto) [place] # (Auto) Eos # (Auto) Baso # (Auto) Immature Gran % Nucleated RBC % Immature Gran # Nucleated RBCs # Immature Plt Fraction INR PT Patient/Control Mix Circ Anticoag PTT Sodium 142 Potassium 3.5 Chloride 106 Carbon Dioxide 28 Anion Gap 11.5 BUN 21 H Creatinine 1.80 H GFR Calculation 70 BUN/Creatinine Ratio 11.00 Glucose 92 Hemoglobin A1c Calculated Osmolality 285.1 Calcium 8.6 Magnesium 2.1 Total Bilirubin 0.40 AST 9 ALT 17 Alkaline Phosphatase 78 Total Creatine Kinase CK-MB (CK-2) Troponin I 0.050 H 0.052 H Total Protein 7.1 Albumin 3.4 Globulin 3.7 H Albumin/Globulin Ratio 0.9 L Triglycerides Cholesterol LDL Cholesterol VLDL Cholesterol HDL Cholesterol Heart Disease Risk Ratio Urine Color Urine Appearance Urine pH Ur Specific [place] Urine Protein Urine Glucose (UA) Urine Ketones Urine Blood Urine Nitrate Urine Bilirubin Urine Urobilinogen Urine Leukocytes Urine RBC Urine WBC Urine Mucus Ur Culture Indicated? Urine Opiates Screen Ur Barbiturates Screen Ur Phencyclidine Scrn U Amphetamine/Methamph U Benzodiazepines Scrn U Cocaine Metab Screen U Cannabinoids Screen Serum Alcohol < 15 L 04/30/17 04/30/17 04/30/17 06:01 10:05 10:05 WBC 3.3 L RBC 5.38 Hgb 16.0 Hct 47.1 MCV 87.5 MCH 30 MCHC 34.0 RDW 15.4 Plt Count 160 MPV 10.8 Neut % (Auto) 44.1 Lymph % (Auto) 42.9 [place] % (Auto) 10.3 Eos % (Auto) 2.1 Baso % (Auto) 0.3 Neut # (Auto) 1.5 Lymph # (Auto) 1.4 [place] # (Auto) 0.3 Eos # (Auto) 0.1 Baso # (Auto) 0.0 Immature Gran % 0.3 Nucleated RBC % 0.0 Immature Gran # 0.01 Nucleated RBCs # 0.00 Immature Plt Fraction 0.0 INR PT Patient/Control Mix Circ Anticoag PTT Sodium 141 Potassium 3.6 Chloride 104 Carbon Dioxide 30 Anion Gap 10.6 BUN 17 Creatinine 1.60 H GFR Calculation 80 BUN/Creatinine Ratio 10.00 Glucose 100 Hemoglobin A1c Calculated Osmolality 282.3 Calcium 8.6 Magnesium Total Bilirubin 0.40 AST 8 ALT 16 Alkaline Phosphatase 85 Total Creatine Kinase CK-MB (CK-2) Troponin I 0.052 H Total Protein 7.0 Albumin 3.3 L Globulin 3.7 H Albumin/Globulin Ratio 0.8 L Triglycerides Cholesterol LDL Cholesterol VLDL Cholesterol HDL Cholesterol Heart Disease Risk Ratio Urine Color Urine Appearance Urine pH Ur Specific [place] Urine Protein Urine Glucose (UA) Urine Ketones Urine Blood Urine Nitrate Urine Bilirubin Urine Urobilinogen Urine Leukocytes Urine RBC Urine WBC Urine Mucus Ur Culture Indicated? Urine Opiates Screen Ur Barbiturates Screen Ur Phencyclidine Scrn U Amphetamine/Methamph U Benzodiazepines Scrn U Cocaine Metab Screen U Cannabinoids Screen Serum Alcohol 04/30/17 10:05 WBC RBC Hgb Hct MCV MCH MCHC RDW Plt Count MPV Neut % (Auto) Lymph % (Auto) [place] % (Auto) Eos % (Auto) Baso % (Auto) Neut # (Auto) Lymph # (Auto) [place] # (Auto) Eos # (Auto) Baso # (Auto) Immature Gran % Nucleated RBC % Immature Gran # Nucleated RBCs # Immature Plt Fraction INR PT Patient/Control Mix Circ Anticoag PTT Sodium Potassium Chloride Carbon Dioxide Anion Gap BUN Creatinine GFR Calculation BUN/Creatinine Ratio Glucose Hemoglobin A1c Calculated Osmolality Calcium Magnesium Total Bilirubin AST ALT Alkaline Phosphatase Total Creatine Kinase 83 CK-MB (CK-2) < 1.0 Troponin I 0.059 H Total Protein Albumin Globulin Albumin/Globulin Ratio Triglycerides Cholesterol LDL Cholesterol VLDL Cholesterol HDL Cholesterol Heart Disease Risk Ratio Urine Color Urine Appearance Urine pH Ur Specific [place] Urine Protein Urine Glucose (UA) Urine Ketones Urine Blood Urine Nitrate Urine Bilirubin Urine Urobilinogen Urine Leukocytes Urine RBC Urine WBC Urine Mucus Ur Culture Indicated? Urine Opiates Screen Ur Barbiturates Screen Ur Phencyclidine Scrn U Amphetamine/Methamph U Benzodiazepines Scrn U Cocaine Metab Screen U Cannabinoids Screen Serum Alcohol - Diagnostic Findings Procedure: Chest x-ray: report reviewed by me - EKG EKG results: interpreted by me EKG shows: sinus rhythm Quality Measures - Stroke Onset of Symptoms Date: 04/29/17 Onset of Symptoms Time: 09:30 Symptom Onset Unknown: No I, Roni Frost MD, personally performed the services described in this documentation, ascribed by Amira Theodore RN in my presence, and it is both accurate and complete .
[2017-04-30] MEDS ORDERED: ROSUVASTATIN 20 MG TABLET PO SCH (21:00)
[2017-04-30] MEDS ORDERED: ROSUVASTATIN 10 MG TABLET PO SCH (21:00)
[2017-05-01 05:14] LABS: Basophils % 0.5 % (0.0-0.8); Eosinophils # 0.1 10*3/uL (0.0-0.87); Eosinophils % 1.6 % (0.00-10.9); Hemoglobin 16.5 GM/DL (14.0-18.0); Immature Granulocytes % 0.3 %; Immature Granulocytes Absolute 0.01 #; Lymphocytes # 1.5 10*3/uL (1.4-4.0); Lymphocytes % 39.8 % (21.2-54.2); Mean Corpuscular HGB Conc 34.4 GM/DL (32-36); Mean Corpuscular Hemoglobin 30 PG (27-34); Mean Corpuscular Volume 86.6 FL (87-102); Mean Platelet Volume 11.1 FL (9.6-12.0); Monocytes # 0.4 10*3/uL (0.11-0.8); Monocytes % 9.6 % (1.7-12.7); Neutrophils # 1.9 10*3/uL (1.4-7.4); Neutrophils % 48.2 % (38.7-73.9); Platelet Count 168 T/CUMM (130-400); Red Blood Count 5.54 MC/CUMM (3.8-5.5); Red Cell Distribution Width 15.2 % (9.3-17.3); White Blood Count 3.9 T/CUMM (4-12)
[2017-05-01 05:51] LABS: Alanine Aminotransferase 21 U/L (16-61); Albumin 3.4 G/DL (3.4-5.0); Alkaline Phosphatase 85 U/L (45-117); Aspartate Amino Transferase 14 U/L (0-37); Bilirubin,Total < 0.39 MG/DL (0.2-1.0); Blood Urea Nitrogen 21 MG/DL (7-18); Calcium 8.8 MG/DL (8.5-10.1); Glucose 133 MG/DL (74-106); Magnesium 2.2 MG/DL (1.8-2.4); Osmolality,Calculated 281.5 MOS/KG (273-304); Phosphorous 3.6 MG/DL (2.5-4.9); Potassium 3.4 MMOL/L (3.5-5.1); Sodium 139 MMOL/L (136-145); Total Protein 7.3 G/DL (6.4-8.3)
--- NOTE | 2017-05-01 08:51 | Cardiology Progress Note ---
Assessment and Plan (1) History of CHF (congestive heart failure) Status: Chronic Assessment and plan: 1. 37-year-old BM recent smoker (reportedly quit over 2 weeks ago) with nonischemic cardiomyopathy (presumed hypertensive with EF 25-30% February 2017), who presented with right-sided weakness suggestive of CVA, with unremarkable MRI today. 2. Class IIb/IIIa [place] [employer] heart failure symptoms which are fairly stable and unchanged for months 3. He reports history of atrial fibrillation in the past but there is no evidence of that on previous hospitalizations (I reviewed all EKGs in their sinus), and he has a loop recorder placed at [place] 2 years ago; we can try to get this interrogated if the battery is still good. 4. Defer to neurology regarding best anticoagulation strategy 5. LDL in the upper 120; start high intensity statin therapy. 6. Modest CKD noted with stable creatinine 7. Low-dose beta-hansel therapy, with diuretic therapy as needed. 8. We will follow with you May 01, 2017: 1. Mr. Villanueva is improving clinically with improved right-sided weakness 2. Probably hypertensive nonischemic cardiomyopathy (less than 30% disease at catheterization in August [address] at [place] [address] Yee); he apparently has not followed up with cardiology since that time, although he had a loop recorder placed. He thinks he has had episodes of atrial fibrillation but he has been in sinus rhythm here and it was not documented at [place] in 2013. He is currently on aspirin Plavixdefer to neurology; will try to get interrogation although the battery on his loop recorder may be that at this point nearly 3 years out. 3. Mild hypokalemia with creatinine improved to 1.6; add captopril 6.25 mg twice daily; would consider increasing Coreg later if he tolerates this well. 4. We will follow with you. Current Visit: No (2) Right sided weakness Status: Acute Current Visit: Yes (3) Acute renal failure Status: Acute Current Visit: Yes (4) Hypertension Status: Chronic Current Visit: Yes (5) Noncompliance Status: Chronic Current Visit: Yes Cardiology - PN: Subj Interval history: Mr. Villanueva reports his right sided weakness is improving. He has no complaints today. He is not short of breath or having chest pain this morning. He is not any palpitations or dizziness per Exam (Progress Note) - Constitutional Vitals: Period Temp Pulse Resp BP Sys/Hurtado Pulse Ox Last 24 Hr 97.0 F-97.9 F 60-85 18-20 146-157/75-98 91-98 General appearance: normal weight, no acute distress - Head Head exam: Present: normal inspection, normocephalic, atraumatic - Respiratory Respiratory exam: Present: clear to auscultation bilaterally. Absent: stridor, wheezes - Cardiovascular Cardiovascular exam: Present: regular rate and rhythm. Absent: diastolic murmur , rubs - GI/Abdominal GI/Abdominal exam: Present: soft. Absent: tenderness - Extremities Exam Extremities exam: Absent: edema Result/EKG - Labs CBC & BMP: 05/01/17 04:11 05/01/17 04:11 Labs: Laboratory Results - last 24 hr 04/30/17 04/30/17 04/30/17 10:05 10:05 10:05 WBC 3.3 L RBC 5.38 Hgb 16.0 Hct 47.1 MCV 87.5 MCH 30 MCHC 34.0 RDW 15.4 Plt Count 160 MPV 10.8 Neut % (Auto) 44.1 Lymph % (Auto) 42.9 [place] % (Auto) 10.3 Eos % (Auto) 2.1 Baso % (Auto) 0.3 Neut # (Auto) 1.5 Lymph # (Auto) 1.4 [place] # (Auto) 0.3 Eos # (Auto) 0.1 Baso # (Auto) 0.0 Immature Gran % 0.3 Nucleated RBC % 0.0 Immature Gran # 0.01 Nucleated RBCs # 0.00 Immature Plt Fraction 0.0 Sodium 141 Potassium 3.6 Chloride 104 Carbon Dioxide 30 Anion Gap 10.6 BUN 17 Creatinine 1.60 H GFR Calculation 80 BUN/Creatinine Ratio 10.00 Glucose 100 Calculated Osmolality 282.3 Calcium 8.6 Phosphorus Magnesium Total Bilirubin 0.40 AST 8 ALT 16 Alkaline Phosphatase 85 Total Creatine Kinase 83 CK-MB (CK-2) < 1.0 Troponin I 0.059 H Total Protein 7.0 Albumin 3.3 L Globulin 3.7 H Albumin/Globulin Ratio 0.8 L 05/01/17 05/01/17 04:11 04:11 WBC 3.9 L RBC 5.54 H Hgb 16.5 Hct 48.0 MCV 86.6 L MCH 30 MCHC 34.4 RDW 15.2 Plt Count 168 MPV 11.1 Neut % (Auto) 48.2 Lymph % (Auto) 39.8 [place] % (Auto) 9.6 Eos % (Auto) 1.6 Baso % (Auto) 0.5 Neut # (Auto) 1.9 Lymph # (Auto) 1.5 [place] # (Auto) 0.4 Eos # (Auto) 0.1 Baso # (Auto) 0.0 Immature Gran % 0.3 Nucleated RBC % 0.0 Immature Gran # 0.01 Nucleated RBCs # 0.00 Immature Plt Fraction 0.0 Sodium 139 Potassium 3.4 L Chloride 100 Carbon Dioxide 32 Anion Gap 10.4 BUN 21 H Creatinine 1.60 H GFR Calculation 80 BUN/Creatinine Ratio 13.00 Glucose 133 H Calculated Osmolality 281.5 Calcium 8.8 Phosphorus 3.6 Magnesium 2.2 Total Bilirubin < 0.39 AST 14 ALT 21 Alkaline Phosphatase 85 Total Creatine Kinase CK-MB (CK-2) Troponin I Total Protein 7.3 Albumin 3.4 Globulin 3.9 H Albumin/Globulin Ratio 0.8 L Quality Measures - Stroke Onset of Symptoms Date: 04/29/17 Onset of Symptoms Time: 09:30 Symptom Onset Unknown: No
[2017-05-01] MEDS ORDERED: CAPTOPRIL 6.25 MG TABLET PO SCH (09:00)
[2017-05-01] MEDS: ASPIRIN 325 MG TABLET PO SCH (09:10)
[2017-05-01] MEDS: FUROSEMIDE 80 MG TABLET PO SCH (09:10)
[2017-05-01] MEDS: CLOPIDOGREL 75 MG TABLET PO SCH (09:10)
[2017-05-01] MEDS: ISOSORBIDE MONONITRATE 60 MG TABLET PO SCH (09:10)
[2017-05-01] MEDS: CARVEDILOL 12.5 MG TABLET PO SCH (09:10)
--- NOTE | 2017-05-01 12:27 | Discharge Summary ---
<Guanakito Felder - Last Filed: 05/01/17 12:15> Hospital Course - Hospital Course Hospital Course: This is a very pleasant 37-year-old male that presented to the ED at [facility] on the night of April 29, 2017 for the evaluation of right-sided weakness. The patient has a complex medical history significant for congestive heart failure, obesity, cannabis use, remote tobacco use, and medical noncompliance, malignant hypertension, atrial fibrillation, pneumonia, and renal insufficiency. The patient reported a surgical history significant for implantable loop recorder device. The patient reported the onset of symptoms the morning of presentation. He reported that he noticed that his right arm had become weak, felt heavy, and was essentially unknown. In addition , the patient reported that he had difficulty ambulating and moving his right lower extremity. The patient reported episodes similar in nature on last month in which he did not seek medical attention. The patient reported that he thought that the symptoms would resolve however, when his symptoms fail to improve he presented to the ED for further evaluation. The patient was assessed at the time of ED presentation. Labs were obtained which were remarkable for BUN of 21, creatinine 1.80, troponin 0 0.050, globulin 3.7, cholesterol 202, and HDL cholesterol at 39. CT of the head was obtained which was unremarkable for the presence of any acute intracranial abnormality. The patient was subsequently admitted to the hospitalist service for continuation of care. A neurology consultation was requested. The patient was seen, evaluated, and recommendations were given. On April 30, 2017, the patient underwent MRI of the brain which was essentially unremarkable for any acute intracranial infarction or abnormality. Cardiology saw in consultation and made some recommendations regarding his meds. The patient's condition slowly improved. The patient's condition is stable. He has not experienced any significant overnight events. Today, we feel that he is indeed appropriate for discharge to follow-up with his primary care physician and instructor warper as indicated. We have spoke with the patient in great detail regarding the importance of maintaining medical and medication compliance. In addition, we discussed the merits of refraining from tobacco and cannabis use. He verbalizes understanding of his instructions and the seriousness of his co-morbidities.He also needs to go back to [place] and see Dr López his Borough Coordinator and have his implanted loop recorder assessed.If he chooses to see Dr Frost, that will be fine too. Diagnosis - Discharge Diagnosis (1) Hypertension Status: Chronic (2) CVA (cerebral vascular accident) Status: Acute Discharge Plan - Discharge Data Disposition: Disch To Home/Self Care - Discharge Medications New Aspirin Chew Tab 81 mg PO DAILY #30 tablet Carvedilol [Coreg] 12.5 mg PO BID W/MEALS #60 tablet Clopidogrel [Plavix] 75 mg PO DAILY #30 tablet hydrALAZINE TAB [Apresoline Tab] 50 mg PO 0600,1400,2200 #90 tablet Rosuvastatin [Crestor] 20 mg PO BEDTIME #30 tablet Continue Isosorbide Mononitrate [Imdur] 60 mg PO QAM #30 Furosemide Tab [Lasix Tab] 80 mg PO BID DIURETIC #60 tablet Discontinued hydrALAZINE TAB [Apresoline Tab] 50 mg PO BID #60 tablet Aspirin 325 mg PO DAILY - Follow Up or Referral - Forms/Instructions Exam - Constitutional Vitals: Period Temp Pulse Resp BP Sys/Hurtado Pulse Ox Last 24 Hr 97.0 F-97.9 F 73-85 18-20 146-163/75-98 91-98 Discharge Results Labs on day of discharge: Labs from last 24 hours 05/01/17 05/01/17 04:11 04:11 WBC 3.9 L RBC 5.54 H Hgb 16.5 Hct 48.0 MCV 86.6 L MCH 30 MCHC 34.4 RDW 15.2 Plt Count 168 MPV 11.1 Neut % (Auto) 48.2 Lymph % (Auto) 39.8 [place] % (Auto) 9.6 Eos % (Auto) 1.6 Baso % (Auto) 0.5 Neut # (Auto) 1.9 Lymph # (Auto) 1.5 [place] # (Auto) 0.4 Eos # (Auto) 0.1 Baso # (Auto) 0.0 Immature Gran % 0.3 Nucleated RBC % 0.0 Immature Gran # 0.01 Nucleated RBCs # 0.00 Immature Plt Fraction 0.0 Sodium 139 Potassium 3.4 L Chloride 100 Carbon Dioxide 32 Anion Gap 10.4 BUN 21 H Creatinine 1.60 H GFR Calculation 80 BUN/Creatinine Ratio 13.00 Glucose 133 H Calculated Osmolality 281.5 Calcium 8.8 Phosphorus 3.6 Magnesium 2.2 Total Bilirubin < 0.39 AST 14 ALT 21 Alkaline Phosphatase 85 Total Protein 7.3 Albumin 3.4 Globulin 3.9 H Albumin/Globulin Ratio 0.8 L DS: Provider Date of admission: 04/29/17 22:35 Primary care physician: . No PCP Attending physician on admission: Sam Salamanca MD Consults: 04/29/17 22:37 Consult to Case Mgmt/Social Srvs [CONS] Routine Reason for Case Mgmt/Social Srvs: Discharge Planning Consult to Occupational Therapy [CONS] Routine Reason for Occupational Therapy: Evaluate and Treat Consult Comment: Stroke Consult to Physical Therapy [CONS] Routine Reason for Physical Therapy: Evaluate and Treat Consult Comment: stroke 04/29/17 22:44 Consult to Physician [CONS] Routine Comment: Consulting Provider: Dirk Luis Person Notified: md tristan Date Notified: 04/30/17 Time Notified: 09:11 04/30/17 09:53 Consult to Physician [CONS] Routine Comment: Consulting Provider: Storm Baker Consult to Specialist Group: Cardiology Person Notified: GARRETT Date Notified: 04/30/17 Time Notified: 10:22 Discharging clinician: Guanakito Felder CNP <Alicia Rasmussen - Last Filed: 05/01/17 13:35> Hospital Course - Time spent with patient Time with patient DS: Greater than 30 minutes (Time spent greater than 35mins) Diagnosis - Discharge Diagnosis (1) Acute on chronic congestive heart failure Status: Acute (2) Uncontrolled hypertension Status: Chronic (3) Noncompliance Status: Chronic (4) Elevated troponin Status: Chronic (5) Acute renal failure Status: Acute (6) Right sided weakness Status: Acute Discharge Plan - Discharge Data Condition at Discharge: Stable Discharge Diet: heart healthy - Forms/Instructions Additional Discharge Instructions: Follow PCP in 1week. Follow with Cardiology and Neurology as scheduled Exam - Constitutional General appearance: no acute distress - Head Head exam: Present: normal inspection - Respiratory Respiratory exam: Present: clear to auscultation bilaterally - Cardiovascular Cardiovascular exam: Present: regular rate and rhythm - GI/Abdominal GI/Abdominal exam: Present: normal bowel sounds - Extremities Exam Extremities exam: Present: normal inspection
[2017-05-01 14:00] VITALS: BP 122/62
--- NOTE | 2017-05-07 17:36 | Physician Query Form ---
CLICK EDIT DOCUMENT TO SELECT QUERY ANSWER --> OK --> SIGN Roselyn Aparicoi RN Clinical [employer] W) [phone] (f) [phone] [email or web address]: Make your selection(s) from the choices in EACH section by typing an "x" and enter comments in the comment section. Please use your independent medical judgment in providing your response. This request does not imply that any particular answer is desired or expected. CLINICAL INDICATORS: (Providers should not edit this section) Based on documentation of "Acute CVA" "Right sided weakness" CT of head shows "No acute intracranial abnormality is identified." Based on the above, could you clarify the appropriate diagnosis, if significant , that supports the above abnormalities and additional evaluation, monitoring, and/or treatment rendered: ( ) Acute CVA with Right Sided Weakness (x ) Acute TIA with Right Sided Weakness ( ) Right Sided Weakness with Known Cause (please specify) ( ) Right Sided Weakness Unknown Cause ( ) Other, please specify: ( ) Clinically unable to determine COMMENTS: PLEASE ALSO DOCUMENT RESPONSE IN PROGRESS NOTES AND/OR DISCHARGE SUMMARY Use of terms such as suspected, likely, or probable (associated with a specific diagnosis that is being evaluated, monitored, or treated as if it exists) are acceptable and can be restated in the discharge summary if not ruled out. MTDD
== END 2017-05-01 14:00 | disposition home or self-care (01) | DRG 47 ==
LOC: N.ED 18:54 → N.EDINP 22:35 → SUATTDRO 22:35 → N.5E 23:00
PROVIDERS: ADMIT Internal Medicine; ATTEND Internal Medicine

== ENCOUNTER 2017-06-01 15:55 | Inpatient (IN) ==
--- NOTE | 2017-06-01 17:05 | CT Report ---
CT of the head without contrast. Indication: Hemiparesthesias. Comparison: April 29, 2017. The ventricles are normal in size and configuration. There is no mass effect, midline shift, or area of hemorrhage. No cortical infarct is seen at this time. No structural abnormality is identified. The calvarium is intact. The mastoid air cells are clear. There are rounded areas of soft tissue seen within both maxillary sinuses, only minimally included. These could represent polyps or areas of mucosal thickening or mucous retention cyst formation. There is a small amount of fluid in the left sphenoid sinus. Impression: No acute intracranial process is seen. Paranasal sinus disease. The CT exam was performed using one or more of the following dose reduction techniques: Automated exposure control, adjustment of the mA and/or kV according to patient size, or use of iterative reconstruction technique. PROCEDURE INTERPRETED AT [facility] DEPARTMENT OF RADIOLOGY Final Report Signed by: Dr. Annie Rhoades
--- NOTE | 2017-06-01 17:06 | XRay Report ---
6 single view the chest. Indication: Cardiomyopathy. Comparison: April 29, 2017. The heart is enlarged. The pulmonary vasculature is normal. The lung oseguera are clear. No pneumothorax or pleural effusion. Impression: Cardiomegaly. Possible increase in heart size compared to the previous study. PROCEDURE INTERPRETED AT [facility] DEPARTMENT OF RADIOLOGY Final Report Signed by: Dr. Annie Rhoades
--- NOTE | 2017-06-01 17:09 | EKG Report ---
Stationary ECG Study [facility] ER Test Date: 06/01/2017 5:08:05 PM Pat Name: YANA SCHAFFER Department: Room: Gender: M Screen Stretcher: : 1980 Requested by: Dank Ross Order Number: [id number] Diane MD: LLOYD CARY Intervals [place] Rate: 73 P: 50 NE: 225 QRS: 39 QRSD: 98 T: -9 QT: 389 QTc: 415 Interpretive Statements SINUS RHYTHM WITH PROLONGED NE INTERVAL ST-T ELEVATION IN THE HIGH LATERAL LEADS WITH INFERIOR ST-T DOWNSLOPING DEPRESSION SUGGESTING ACUTE INJURY PATTERN. Electronically Signed On 06-04-17 21:09:41 CDT by LLOYD CARY [email or web address]
[2017-06-01 17:22] LABS: Basophils % 0.5 % (0.0-0.8); Eosinophils # 0.1 10*3/uL (0.0-0.87); Eosinophils % 1.6 % (0.00-10.9); Hematocrit 45.2 VOL% (42.0-52.0); Hemoglobin 15.5 GM/DL (14.0-18.0); Immature Granulocytes % 0.2 %; Immature Granulocytes Absolute 0.01 #; Lymphocytes # 1.8 10*3/uL (1.4-4.0); Lymphocytes % 40.2 % (21.2-54.2); Mean Corpuscular HGB Conc 34.3 GM/DL (32-36); Mean Corpuscular Hemoglobin 30 PG (27-34); Mean Corpuscular Volume 87.3 FL (87-102); Mean Platelet Volume 10.8 FL (9.6-12.0); Monocytes # 0.5 10*3/uL (0.11-0.8); Monocytes % 10.3 % (1.7-12.7); Neutrophils # 2.1 10*3/uL (1.4-7.4); Neutrophils % 47.2 % (38.7-73.9); Platelet Count 181 T/CUMM (130-400); Red Blood Count 5.18 MC/CUMM (3.8-5.5); Red Cell Distribution Width 14.6 % (9.3-17.3); White Blood Count 4.4 T/CUMM (4-12)
[2017-06-01 17:32] LABS: PT Patient Result 10.3 SECS
--- NOTE | 2017-06-01 17:34 | Emergency Department Note ---
Clementina Murphy Brittany, am scribing for, and in the presence of, Dank Estrella MD 16:42. Sameer Murphy Phillip K, MD, personally performed the services described in this documentation, ascribed by Lamar Mcrae in my presence, and it is both accurate and complete 734 . Arrival - Arrival Chief Complaint: Weakness Stated Complaint: RIGHT SIDED WEAKNESS ED Nursing Triage Note: PT TO ER 06 VIA EMS COMING FROM [facility] WITH C/O HAVING RIGHT SIDED WEAKNESS ONSET 0600 THIS AM. ALSO C/O HEADACHE Mode of Arrival: Stretcher Limitations: No Limitations Source: Patient Time Seen by Provider: 06/01/17 16:23 - History of Present Illness HPI Narrative: This is a 37 y/o black male,who presents to the ED with c/o right sided weakness which started at 0600 this morning.P reports he was seen at Dr. Sanchez's office earlier this morning and was sent here for the weakness. He notes he is having numbness as well. He states he is able to stand and ambulate but his right leg is "giving him problems". He notes a CRUZ and "problems with my speech." He denies a fever. Pt states the CRUZ started yesterday. Pt denies a PCP.Per previous records, pt was seen here one month ago for similar Sx, whidch at this time, a Head CT was preformed which reads as follows: CT: report reviewed by me (Head/Brain: No acute intracranial abnormality is identified. Incomplete evaluation of polypoidal mucosal finding in the left maxillary sinus. Pt has no other complaints/pain in the ED at this time. Pt has a PMHx of CHF, HTN, A-fib, renal failure, and back/neck problems. Pt has had a cardiac cath. PT has a family medical Hx of stomach cancer, diabetes, heart disease, and HTN. Pt denies a social Hx. Onset (ago): hour(s) (Started at 0600 this morning) Consistency: constant Severity: moderate Allergies/Adverse Reactions: Allergies Allergy/AdvReac Type Severity Reaction Status Date / Time No Known Allergies Allergy Verified 06/01/17 16:02 Home Medications: Home Medications Medication Instructions Recorded Confirmed Type Aspirin Chew Tab 81 mg PO DAILY #30 tablet 05/01/17 06/01/17 Rx Clopidogrel [Plavix] 75 mg PO DAILY #30 tablet 05/01/17 06/01/17 Rx Furosemide Tab [Lasix Tab] 80 mg PO BID DIURETIC #60 tablet 05/01/17 06/01/17 Rx Isosorbide Mononitrate [Imdur] 60 mg PO QAM #30 05/01/17 06/01/17 Rx hydrALAZINE TAB [Apresoline Tab] 50 mg PO 0600,1400,2200 #90 tablet 05/01/17 Rx Review of System - Review of System 12 point system: reviewed and no additional remarkable complaints except as stated - Review of System Constitutional: Absent: fever Neurological: Present: headache, weakness (Weakness to the right side of the body), numbness Medical,Surgical,& Family Hx - Medical History Cardio: History of: Cardiac Dysrhythmia (1 episode a-fib (self limiting) remote past w/ pain & uncontrolled HTN), CHF, Hypertension No history of: Cerebrovascular Disease, CAD, [place], Pacemaker, PVD, Valvular Heart Disease Psychological: No history of: Anxiety Disorders, ADHD, Behavior Problems, Bipolar Disorder, Depression, Previous Suicide Attempt, Psychiatric/Substance Abuse Tx, Schizophrenia, Violent Behavior, Psychiatric Problems Neurology: No history of: Dementia, TIA Endocrine: No history of: Diabetes Mellitus (IDDM), Diabetes Mellitus (NIDDM), Dyslipidemia, Thyroid Disorder Rheumatology: No history of;: Rheumatoid Arthritis Respiratory: History of: Pneumonia No history of: Obstructive Sleep Apnea Renal: History of: Renal Failure No history of: Dialysis Gastrointestinal: No history of: GERD, Gastrointestinal Bleed Musculoskeletal: History of: Back/Neck Problems Hematology: No history of: Anemia, Blood Transfusion Reaction Other: No history of: Anesthesia Reactions - Surgical History Cardiac Surgeries: Sugical HX of: Cardiac Catheterization Patient Denies: Carotid Endarterectomy, Internal Defibrillator Thoracic Surgeries: Patient denies;: Organ Transplant HEENT Surgeries: Patient denies: Carotid Endarterectomy - Family History Family History: Reports;: Family Cancer (mother (stomach cancer), sister), Family Diabetes (Cyst), Family Heart Disease, Family Hypertension (mother and father) Denies;: Family Anesthesia Reaction - Social History Smoking Status: Never smoker Frequency of Alcohol Use: None Type of Drug Use: None Exam Vital Signs: Vital Signs Temperature 97.8 F 06/01/17 15:55 Pulse Rate 80 06/01/17 15:55 Respiratory Rate 17 06/01/17 16:08 Blood Pressure 145/95 06/01/17 15:55 O2 Sat by Pulse Oximetry 96 06/01/17 17:14 - General General appearance: alert, in no apparent distress - Head Head exam: Present: atraumatic - Eye Eye exam: Present: normal appearance, PERRL, EOMI. Absent: nystagmus - ENT ENT exam: Present: mucous membranes moist - Neck Neck exam: Present: full ROM, trachea midline. Absent: tenderness - Chest Chest inspection: Present: normal inspection, symmetric chest wall rise. Absent : tenderness - Respiratory Respiratory exam: Present: normal lung sounds bilaterally. Absent: respiratory distress - Cardiovascular Cardiovascular exam: Present: regular rate, normal rhythm, normal heart sounds. Absent: murmur, rubs, gallop, clicks, JVD - Abdominal Exam Abdominal exam: Present: soft, normal bowel sounds. Absent: tenderness - Rectal Exam Rectal exam: Present: deferred - Extremities Exam Extremities exam: Present: normal capillary refill. Absent: pedal edema - Back Exam Back exam: Present: full ROM. Absent: tenderness, muscle spasm, rashes - Neurological Exam Neurological exam: Present: alert, oriented X3, CN II-XII intact, motor sensory deficit (Decreased senstation noted to the right lower and upper extermities, weakness noted to the right upper extermity. ) - Psychiatric Psychiatric exam: Present: normal affect, normal mood. Absent: depressed, agitated, anxious, flat affect, manic - Skin Skin exam: Present: warm, dry, intact, normal color. Absent: rash, cyanosis, diaphoresis Course Course Narrative: Patient discussed with the hospitalist. Results - Labs CBC & BMP: 06/01/17 17:14 Lab Results: I have reviewed the patients labs - EKG EKG results: interpreted by DAREN, sinus rhythm (Early repolarization, nonspecific ST-T changes. Unchanged from EKG April 29 of this year. EKG discussed with Dr. Mariscal) - Diagnostic Findings Procedure: Chest x-ray: report reviewed by me (Cardiomegaly. Possible increase in heart size compared to), CT: report reviewed by me (Head CT: No acute intracranial process is seen. Paranasal sinus disease. ) Disposition Clinical Impression: Right sided weakness, Rule out CVA versus TIA, History of CHF (congestive heart failure), Chronic kidney disease Case discussed with: patient Disposition: Disch To Home/Self Care Condition: Stable Additional Instructions: Admit to the hospitalist
[2017-06-01 17:45] LABS: Alanine Aminotransferase 21 U/L (16-61); Albumin 3.4 G/DL (3.4-5.0); Alkaline Phosphatase 92 U/L (45-117); Aspartate Amino Transferase 10 U/L (0-37); Blood Urea Nitrogen 19 MG/DL (7-18); Calcium 8.8 MG/DL (8.5-10.1); Glucose 90 MG/DL (74-106); Osmolality,Calculated 284.1 MOS/KG (273-304); Potassium 3.6 MMOL/L (3.5-5.1); Sodium 142 MMOL/L (136-145); Total Protein 7.1 G/DL (6.4-8.3)
[2017-06-01] MEDS ORDERED: hydrALAZINE 20 MG/1 ML VIAL IV STA (18:20)
--- NOTE | 2017-06-01 18:31 | Hospitalist History & Physical ---
Assessment and Plan (1) Weakness of right side of body Status: Acute Assessment and plan: Upon review of the medical record, the patient has required multiple hospitalizations for symptoms similar in nature in recent months. During the last clinical encounter in April,, a full neurological workup was performed. MRI was obtained which was essentially unremarkable. CT head at the time of presentation was essentially negative for any acute intracranial processes or infarct. We will resume all home medications as previously ordered. In addition, we will consult neurology to evaluate and render recommendations. Current Visit: Yes (2) Chronic kidney disease Status: Chronic Assessment and plan: BUN and creatinine noted at 19/1.60. The patient has underlying renal insufficiency which is chronic in nature. Upon review of the previous medical record, the patient's BUN and creatinine was noted at 21/1.6. This is indeed the patient's baseline. We will monitor the patient's renal function closely during the clinical encounter. Current Visit: Yes Qualifiers: Chronic kidney disease stage: stage 2 (mild) Qualified Code(s): N18.2 - Chronic kidney disease, stage 2 (mild) (3) Hypertension Status: Chronic Assessment and plan: The patient reports medication compliance since the previous clinical encounter. The patient was noted to be grossly hypertensive at the time of examination with a diastolic pressure greater than 100. Hydralazine intravenously was given in the ED. We will resume the patient's home antihypertensive regimen. In addition, we will order labetalol as needed. Current Visit: No Qualifiers: Hypertension type: unspecified Qualified Code(s): I10 - Essential (primary ) hypertension History of Present Illness Chief complaint: R sided weakness History of present illness: This is a very pleasant 37-year-old male that presented to the ED at [facility] this afternoon for the evaluation of right-sided weakness. The patient has a complex medical history significant for congestive heart failure, obesity, cannabis use, remote tobacco use, and medical noncompliance, malignant hypertension, atrial fibrillation, pneumonia, and renal insufficiency. The patient reported a surgical history significant for implantable loop recorder device. The patient reported the onset of symptoms this morning. He reports that he noticed that his right arm had become weak, felt heavy, and was essentially unknown. In addition, the patient reported that he had difficulty ambulating and moving his right lower extremity and ultimately sustained a fall. The patient reported episodes similar in nature on last month in which he did not seek medical attention. The patient reported that he thought that the symptoms would resolve however, when his symptoms fail to improve he presented to the ED for further evaluation. The patient was assessed at the time of ED presentation. Labs were obtained which were significant for carbon dioxide of 33, BUN 19, creatinine 1.6, and serum alcohol less than 15. CT head was essentially unremarkable for the presence of any acute intracranial process; however paranasal sinus disease was noted. Chest x-ray was significant for cardiomegaly. EKG was significant for sinus rhythm; early repolarization, nonspecific ST-T changes. After brief discussion with both Dr. Estrella and Dr. Olivares, the patient will be admitted to the hospitalist service for continuation of care. Home medications have been reviewed and reconciled. CODE STATUS discussed; the patient is a FULL CODE Home Medications Medication Instructions Recorded Confirmed Type Aspirin Chew Tab 81 mg PO DAILY #30 tablet 05/01/17 06/01/17 Rx Clopidogrel [Plavix] 75 mg PO DAILY #30 tablet 05/01/17 06/01/17 Rx Furosemide Tab [Lasix Tab] 80 mg PO BID DIURETIC #60 tablet 05/01/17 06/01/17 Rx Isosorbide Mononitrate [Imdur] 60 mg PO QAM #30 05/01/17 06/01/17 Rx hydrALAZINE TAB [Apresoline Tab] 50 mg PO 0600,1400,2200 #90 tablet 05/01/17 Rx Allergies Allergy/AdvReac Type Severity Reaction Status Date / Time No Known Allergies Allergy Verified 06/01/17 16:02 Medical,Surgical,& Family Hx - Medical History Cardio: History of: Cardiac Dysrhythmia (1 episode a-fib (self limiting) remote past w/ pain & uncontrolled HTN), CHF, Hypertension No history of: Cerebrovascular Disease, CAD, [place], Pacemaker, PVD, Valvular Heart Disease Psychological: No history of: Anxiety Disorders, ADHD, Behavior Problems, Bipolar Disorder, Depression, Previous Suicide Attempt, Psychiatric/Substance Abuse Tx, Schizophrenia, Violent Behavior, Psychiatric Problems Neurology: No history of: Dementia, TIA Endocrine: No history of: Diabetes Mellitus (IDDM), Diabetes Mellitus (NIDDM), Dyslipidemia, Thyroid Disorder Rheumatology: No history of;: Rheumatoid Arthritis Respiratory: History of: Pneumonia No history of: Obstructive Sleep Apnea Renal: History of: Renal Failure No history of: Dialysis Gastrointestinal: No history of: GERD, Gastrointestinal Bleed Musculoskeletal: History of: Back/Neck Problems Hematology: No history of: Anemia, Blood Transfusion Reaction Other: No history of: Anesthesia Reactions - Surgical History Cardiac Surgeries: Sugical HX of: Cardiac Catheterization Patient Denies: Carotid Endarterectomy, Internal Defibrillator Thoracic Surgeries: Patient denies;: Organ Transplant HEENT Surgeries: Patient denies: Carotid Endarterectomy - Family History Family History: Reports;: Family Cancer (mother (stomach cancer), sister), Family Diabetes (Cyst), Family Heart Disease, Family Hypertension (mother and father) Denies;: Family Anesthesia Reaction - Social History Smoking Status: Never smoker Frequency of Alcohol Use: None Type of Drug Use: None 12 point system: reviewed and no additional remarkable complaints except as stated Exam - Constitutional Vitals: Period Temp Pulse Resp BP Sys/Hurtado Pulse Ox Last 24 Hr 97.8 F-97.8 F 80-80 17-17 145-145/95-95 96-100 General appearance: normal weight, no acute distress - Head Head exam: Present: normal inspection, normocephalic, atraumatic - Eye Eye exam: Present: EOMI. Absent: conjunctival injection Pupils: Present: RENÉ, normal accommodation - ENT ENT exam: Present: normal exam, normal external ear exam, normal oropharynx - Neck Neck exam: Present: normal inspection. Absent: lymphadenopathy, meningismus, tenderness, thyromegaly - Respiratory Respiratory exam: Present: clear to auscultation bilaterally. Absent: rales, rhonchi, stridor, wheezes - Cardiovascular Cardiovascular exam: Present: regular rate and rhythm. Absent: carotid bruit, diastolic murmur, gallop, JVD, rubs, systolic murmur - GI/Abdominal GI/Abdominal exam: Present: normal bowel sounds, soft - Extremities Exam Extremities exam: Present: normal inspection, normal capillary refill, full ROM. Absent: edema - Back Exam Back exam: Present: normal inspection - Neurological Exam Neurological exam: Present: alert, oriented X3, CN II-XII intact, motor sensory deficit (Decreased sensation noted to the right lower and upper extremities; right upper extremity weakness noted 3/5) - Psychiatric Psychiatric exam: Present: normal affect, normal mood - Skin Skin exam: Present: normal color, warm, dry Results - Labs CBC & BMP: 06/01/17 17:14 06/01/17 17:14 Lab Results: I have reviewed the past 24 hour labs
[2017-06-01] MEDS ORDERED: hydrALAZINE 20 MG/1 ML VIAL ONE (19:00)
[2017-06-01] MEDS: SODIUM CHLORIDE 0.45% 1,000 ML IV SCH (20:57)
[2017-06-01] MEDS: ROSUVASTATIN 20 MG TABLET PO SCH (22:22)
[2017-06-01] MEDS: CARVEDILOL 6.25 MG TABLET PO SCH (22:23)
[2017-06-01] MEDS: ONDANSETRON 4 MG/2 ML VIAL IV SCH (22:23)
[2017-06-01] MEDS: ENOXAPARIN 40 MG/0.4 ML SYRINGE SUBCUT SCH (22:24)
[2017-06-02] MEDS: diphenhydrAMINE 50 MG/1 ML VIAL IV SCH ×3 (00:47→14:11)
[2017-06-02] MEDS: ONDANSETRON 4 MG/2 ML VIAL IV SCH ×2 (00:47→06:20)
[2017-06-02 06:11] LABS: Risk Ratio 4.58; VLDL CHOLESTEROL 28.4 MG/DL
[2017-06-02 07:30] LABS: Basophils % 0.2 % (0.0-0.8); Eosinophils # 0.1 10*3/uL (0.0-0.87); Eosinophils % 1.2 % (0.00-10.9); Hemoglobin 15.4 GM/DL (14.0-18.0); Immature Granulocytes % 0.2 %; Immature Granulocytes Absolute 0.01 #; Lymphocytes # 1.9 10*3/uL (1.4-4.0); Lymphocytes % 46.9 % (21.2-54.2); Mean Corpuscular HGB Conc 33.5 GM/DL (32-36); Mean Corpuscular Hemoglobin 30 PG (27-34); Mean Corpuscular Volume 88.1 FL (87-102); Mean Platelet Volume 11.1 FL (9.6-12.0); Monocytes # 0.4 10*3/uL (0.11-0.8); Monocytes % 8.8 % (1.7-12.7); Neutrophils # 1.7 10*3/uL (1.4-7.4); Neutrophils % 42.7 % (38.7-73.9); Platelet Count 168 T/CUMM (130-400); Red Blood Count 5.22 MC/CUMM (3.8-5.5); Red Cell Distribution Width 14.9 % (9.3-17.3); White Blood Count 4.1 T/CUMM (4-12)
[2017-06-02 07:48] LABS: Albumin 3.1 G/DL (3.4-5.0); Bilirubin,Total 0.4 MG/DL (0.2-1.0); Calcium 8.3 MG/DL (8.5-10.1); Osmolality,Calculated 280.4 MOS/KG (273-304); Phosphorous 3.8 MG/DL (2.5-4.9); Potassium 3.4 MMOL/L (3.5-5.1); Total Protein 6.3 G/DL (6.4-8.3)
[2017-06-02] MEDS: ISOSORBIDE MONONITRATE 60 MG TABLET PO SCH (09:50)
[2017-06-02] MEDS: CLOPIDOGREL 75 MG TABLET PO SCH (09:50)
[2017-06-02] MEDS: ASPIRIN CHEW 81 MG TABLET PO SCH (09:50)
[2017-06-02] MEDS: FUROSEMIDE 80 MG TABLET PO SCH ×2 (09:50→18:19)
[2017-06-02] MEDS: CARVEDILOL 6.25 MG TABLET PO SCH (09:50)
[2017-06-02] MEDS ORDERED: LORazepam 2 MG/1 ML VIAL IV ONE (11:00)
--- NOTE | 2017-06-02 11:15 | Hospitalist Progress Note ---
Assessment and Plan (1) Weakness of right side of body Status: Acute Assessment and plan: Upon review of the medical record, the patient has required multiple hospitalizations for symptoms similar in nature in recent months. During the last clinical encounter in April,, a full neurological workup was performed. MRI was obtained which was essentially unremarkable. CT head at the time of presentation was essentially negative for any acute intracranial processes or infarct. We will resume all home medications as previously ordered. In addition, we will consult neurology to evaluate and render recommendations. [id number] weakness remains however, noted increased and strength noted. Neurology consultation has been requested. MRI scheduled this a.m. We will await neurology consultation and evaluation findings for further direction. Current Visit: Yes (2) Chronic kidney disease Status: Chronic Assessment and plan: BUN and creatinine noted at 19/1.60. The patient has underlying renal insufficiency which is chronic in nature. Upon review of the previous medical record, the patient's BUN and creatinine was noted at 21/1.6. This is indeed the patient's baseline. We will monitor the patient's renal function closely during the clinical encounter. 06/02-BUN and creatinine noted at 16/1.70. We will continue gentle rehydration and recheck CMP in a.m. Current Visit: Yes Qualifiers: Chronic kidney disease stage: stage 2 (mild) Qualified Code(s): N18.2 - Chronic kidney disease, stage 2 (mild) (3) Hypertension Status: Chronic Assessment and plan: The patient reports medication compliance since the previous clinical encounter. The patient was noted to be grossly hypertensive at the time of examination with a diastolic pressure greater than 100. Hydralazine intravenously was given in the ED. We will resume the patient's home antihypertensive regimen. In addition, we will order labetalol as needed. Current Visit: No Qualifiers: Hypertension type: unspecified Qualified Code(s): I10 - Essential (primary ) hypertension Hospitalist: Subjective Interval history: Patient seen and examined; chart reviewed. No significant overnight events reported per staff. Awaiting neurology consultation and MRI this a.m. Exam - Constitutional Vitals: Period Temp Pulse Resp BP Sys/Hurtado Pulse Ox Last 24 Hr 97 F-97.8 F 77-95 17-21 145-172/73-130 92-100 General appearance: normal weight, no acute distress - Head Head exam: Present: normal inspection, normocephalic, atraumatic - Eye Eye exam: Present: EOMI. Absent: conjunctival injection Pupils: Present: RENÉ, normal accommodation - ENT ENT exam: Present: normal exam, normal external ear exam, normal oropharynx - Neck Neck exam: Present: normal inspection. Absent: lymphadenopathy, meningismus, tenderness, thyromegaly - Respiratory Respiratory exam: Present: clear to auscultation bilaterally. Absent: rales, rhonchi, stridor, wheezes - Cardiovascular Cardiovascular exam: Present: regular rate and rhythm. Absent: carotid bruit, diastolic murmur, gallop, JVD, rubs, systolic murmur - GI/Abdominal GI/Abdominal exam: Present: normal bowel sounds, soft. Absent: tenderness - Extremities Exam Extremities exam: Present: normal inspection, full ROM, other (Right-sided weakness noted). Absent: edema - Back Exam Back exam: Present: normal inspection - Neurological Exam Neurological exam: Present: alert, oriented X3, CN II-XII intact, motor sensory deficit (Right-sided sensory deficit noted) - Psychiatric Psychiatric exam: Present: normal affect, normal mood - Skin Skin exam: Present: normal color, warm, dry Results - Labs CBC & BMP: 06/02/17 04:51 06/02/17 04:51 Lab Results: I have reviewed the past 24 hour labs
--- NOTE | 2017-06-02 12:32 | Magnetic Resonance Report ---
MRI of the brain without contrast. Indication: Right-sided weakness. Comparison: April 30, 2017. Sagittal T1, axial diffusion, axial T2, axial T1, axial gradient echo, coronal T2, axial FLAIR, axial ADC. The appearance of the craniovertebral junction is within normal limits. There is a mild partial empty sella. The ventricles are normal in size and configuration. The venous sinuses are patent. There is no mass effect, midline shift, or area of hemorrhage. There is no evidence of acute infarction. No cortical infarcts are seen. Within the white matter of both cerebral hemispheres, there are a few small foci of increased T2 and FLAIR signal, identical to the previous study. Within each maxillary sinus, there are hyperintense foci, measuring about 2 to 3 cm each within the maxillary sinuses, most likely because retention cyst. Impression: 1. There are a few scattered white matter changes which remain stable. These are nonspecific. They can be seen incidentally, in association with migraine headache syndrome or vasculitis, they can be seen with demyelinating disorders, and in post viral and postinflammatory conditions. Also, they are most commonly seen in the result of chronic microvascular ischemia. However this patient is young to have ischemic change unless there is chronic hypertension or diabetes. There is no change compared to the recent previous study. 2. Paranasal sinus disease. PROCEDURE INTERPRETED AT [facility] DEPARTMENT OF RADIOLOGY Final Report Signed by: Dr. Annie Rhoades
[2017-06-02] MEDS: SODIUM CHLORIDE 0.45% 1,000 ML IV SCH (13:14)
[2017-06-02] MEDS ORDERED: diphenhydrAMINE 50 MG/1 ML VIAL IV SCH (13:30)
--- NOTE | 2017-06-02 15:29 | Neurology Consult Note ---
History of Present Illness History of present illness: 37-year-old -Cong[place] gentleman with past medical history significant for hypertension, atrial fibrillation, history of pneumonia and renal insufficiency presented to the ED at [facility] this afternoon for the evaluation of right-sided weakness and primarily pain. The patient reported a surgical history significant for implantable loop recorder device. The patient reported the onset of symptoms yesterday morning. He reports that he noticed that his right arm had become weak, felt heavy. In addition, the patient reported that he had difficulty ambulating and moving his right lower extremity and ultimately sustained a fall. The patient reported episodes similar in nature on last month in which he did not seek medical attention. The patient reported that he thought that the symptoms would resolve however, when his symptoms fail to improve he presented to the ED for further evaluation. He underwent MRI of the brain today which reveals no acute abnormality but some mild small vessel disease which is likely due to the combination of history of smoking as well as hypertension. Home Medications Medication Instructions Recorded Confirmed Type Aspirin Chew Tab 81 mg PO DAILY #30 tablet 05/01/17 06/01/17 Rx Clopidogrel [Plavix] 75 mg PO DAILY #30 tablet 05/01/17 06/01/17 Rx Furosemide Tab [Lasix Tab] 80 mg PO BID DIURETIC #60 tablet 05/01/17 06/01/17 Rx Isosorbide Mononitrate [Imdur] 60 mg PO QAM #30 05/01/17 06/01/17 Rx hydrALAZINE TAB [Apresoline Tab] 50 mg PO 0600,1400,2200 #90 tablet 05/01/17 Rx Allergies Allergy/AdvReac Type Severity Reaction Status Date / Time No Known Allergies Allergy Verified 06/01/17 16:02 12 point system: reviewed and no additional remarkable complaints except as stated Medical,Surgical,& Family Hx - Medical History Cardio: History of: Cardiac Dysrhythmia (1 episode a-fib (self limiting) remote past w/ pain & uncontrolled HTN), CHF, Hypertension No history of: Cerebrovascular Disease, CAD, [place], Pacemaker, PVD, Valvular Heart Disease Psychological: No history of: Anxiety Disorders, ADHD, Behavior Problems, Bipolar Disorder, Depression, Previous Suicide Attempt, Psychiatric/Substance Abuse Tx, Schizophrenia, Violent Behavior, Psychiatric Problems Neurology: No history of: Dementia, TIA Endocrine: No history of: Diabetes Mellitus (IDDM), Diabetes Mellitus (NIDDM), Dyslipidemia, Thyroid Disorder Rheumatology: No history of;: Rheumatoid Arthritis Respiratory: History of: Pneumonia No history of: Obstructive Sleep Apnea Renal: History of: Renal Failure No history of: Dialysis Gastrointestinal: No history of: GERD, Gastrointestinal Bleed Musculoskeletal: History of: Back/Neck Problems Hematology: No history of: Anemia, Blood Transfusion Reaction Other: No history of: Anesthesia Reactions - Surgical History Cardiac Surgeries: Sugical HX of: Cardiac Catheterization Patient Denies: Carotid Endarterectomy, Internal Defibrillator Thoracic Surgeries: Patient denies;: Organ Transplant HEENT Surgeries: Patient denies: Carotid Endarterectomy - Family History Family History: Reports;: Family Cancer (mother (stomach cancer), sister), Family Diabetes (Cyst), Family Heart Disease, Family Hypertension (mother and father) Denies;: Family Anesthesia Reaction - Social History Smoking Status: Never smoker Frequency of Alcohol Use: None Type of Drug Use: None Exam - Constitutional Vitals: Period Temp Pulse Resp BP Sys/Hurtado Pulse Ox Last 24 Hr 97 F-97.8 F 77-95 17-21 145-172/73-130 92-100 Exam: GENERAL: Patient is in no acute distress. NECK: Neck is supple. There is no JVD. No carotid bruits present. No thyroid masses. CVS: First and second heart sounds are normal. There is no S3 present. Regular rate and rhythm. RESPIRATORY: Lungs are clear to auscultation without any rales or rhonchi. ABDOMEN: Soft and non-tender. Bowel sounds are present. There is no hepatosplenomegaly. EXT: There is no palpable edema. Peripheral pulses are present. Skin: No rashes Central Nervous system: General: Alert, awake and Oriented x 3 Speech: Fluent Comprehension: Intact and normal Facial expressions: Normal Cranial Nerves: CN1/Olfactory: Normal CN II/ Optic: Normal, Visual Rodriguez unreliable CN III, and : RENÉ & EOMI CN V: Normal & intact CN VII: face is symmetric CNVIII: Normal CN XI/X/XI/XII: Intact and Normal Motor: Bulk and Tone is normal. Strength in the right 5/5 Strength in the left 5/5 Sensory: Grossly intact for all the modalities of PP, LT and temp sense Reflexes: 1+ and symmetrical Cerebellar function: Normal finger to nose and heel to nixon testing. Toes: Equivocal Gait: Not tested at this time Results - Labs CBC & BMP: 06/02/17 04:51 06/02/17 04:51 Assessment and Plan (1) Right sided weakness Status: Acute Assessment and plan: No evidence of a stroke, TIAs, epilepsy, seizures. Continue aspirin a day. Recommend psychological evaluation Continue PT and OT Sign off please call as needed Current Visit: No
[2017-06-02] MEDS: CARVEDILOL 12.5 MG TABLET PO SCH (18:19)
[2017-06-02] MEDS: ROSUVASTATIN 20 MG TABLET PO SCH (21:34)
[2017-06-02] MEDS: ENOXAPARIN 40 MG/0.4 ML SYRINGE SUBCUT SCH (21:34)
[2017-06-03 02:08] LABS: Apearance,Urine CLEAR (Clear); Bilirubin,Urine Negative (Negative); Blood, Urine Negative (Negative); Glucose,Urine (UA) Negative (Negative); Ketones,Urine Negative (Negative); Nitrite,Urine Negative (Negative); Protein,Urine Negative; Urine Color Colorless (Yellow); Urine Specific Gravity 1.004 (1.001-1.035); Urine Urobilinogen < 2.0 EU/DL (0.2-1.0)
[2017-06-03 02:14] LABS: Barbiturates Screen,Urine Negative (Negative); Benzodiazepines Screen,Urine Negative (Negative); Cannabinoid Screen,Urine Negative (Negative); Opiate Screen,Urine Negative (Negative); Phencyclidine Screen,Urine Negative (Negative)
[2017-06-03 06:05] LABS: Basophils % 0.5 % (0.0-0.8); Eosinophils # 0.1 10*3/uL (0.0-0.87); Eosinophils % 1.2 % (0.00-10.9); Hemoglobin 16.1 GM/DL (14.0-18.0); Immature Granulocytes % 0.2 %; Immature Granulocytes Absolute 0.01 #; Lymphocytes # 1.6 10*3/uL (1.4-4.0); Mean Corpuscular HGB Conc 34.3 GM/DL (32-36); Mean Corpuscular Hemoglobin 30 PG (27-34); Mean Corpuscular Volume 87.2 FL (87-102); Mean Platelet Volume 10.8 FL (9.6-12.0); Monocytes # 0.4 10*3/uL (0.11-0.8); Monocytes % 9.9 % (1.7-12.7); Neutrophils # 2.2 10*3/uL (1.4-7.4); Neutrophils % 51.2 % (38.7-73.9); Platelet Count 173 T/CUMM (130-400); Red Blood Count 5.39 MC/CUMM (3.8-5.5); Red Cell Distribution Width 14.6 % (9.3-17.3); White Blood Count 4.2 T/CUMM (4-12)
[2017-06-03 06:46] LABS: Albumin 3.3 G/DL (3.4-5.0); Bilirubin,Total 0.7 MG/DL (0.2-1.0); Calcium 8.7 MG/DL (8.5-10.1); Osmolality,Calculated 282.4 MOS/KG (273-304); Phosphorous 3.4 MG/DL (2.5-4.9); Potassium 3.2 MMOL/L (3.5-5.1); Total Protein 6.9 G/DL (6.4-8.3)
--- NOTE | 2017-06-03 06:57 | Discharge Summary ---
Hospital Course - Hospital Course Hospital Course: This is a very pleasant 37-year-old male that presented to the ED at [facility] on afternoon June 01, 2017 for the evaluation of right-sided weakness. The patient has a complex medical history significant for congestive heart failure, obesity, cannabis use, remote tobacco use, and medical noncompliance, malignant hypertension, atrial fibrillation, pneumonia, and renal insufficiency. The patient reported a surgical history significant for implantable loop recorder device. The patient reported the onset of symptoms this morning. He reports that he noticed that his right arm had become weak, felt heavy, and was essentially unknown. In addition, the patient reported that he had difficulty ambulating and moving his right lower extremity and ultimately sustained a fall. The patient reported episodes similar in nature on last month in which he did not seek medical attention. The patient reported that he thought that the symptoms would resolve however, when his symptoms fail to improve he presented to the ED for further evaluation. The patient was assessed at the time of ED presentation. Labs were obtained which were significant for carbon dioxide of 33, BUN 19, creatinine 1.6, and serum alcohol less than 15. CT head was essentially unremarkable for the presence of any acute intracranial process; however paranasal sinus disease was noted. Chest x-ray was significant for cardiomegaly. EKG was significant for sinus rhythm; early repolarization, nonspecific ST-T changes. The patient was subsequently admitted to the hospitalist service for continuation of care. Antihypertensive agents, diuretics, and gentle rehydration was initiated. A neurology consultation was requested. On Wednesday, June 02, 2017, the patient underwent MRI of the brain without contrast which was unremarkable for any evidence of cerebrovascular accident, transient ischemic attack, epilepsy, or seizures. Further recommendations were given. The patient's condition is stable. He has not experienced any significant overnight events. Today, we feel that he is indeed appropriate for discharge to follow-up with his primary care physician as indicated. Diagnosis - Discharge Diagnosis (1) Weakness of right side of body Status: Resolved (2) Chronic kidney disease Status: Chronic (3) Hypertension Status: Chronic Specialty Discharge - Follow Up or Referrals - Speciality Discharge Instructions Hospitalist Instructions: The patient should continue all discharge medications as ordered. The patient should continue aspirin daily. The patient should follow-up with his primary care physician in 5-7 days. Discharge Plan - Discharge Data Disposition: Disch To Home/Self Care Condition at Discharge: Stable Discharge Diet: heart healthy, low salt diet Activity: resume usual activities as tolerated Hygiene: no restrictions Weight Bearing at Discharge: full weight bearing Driving: no restrictions Contact your physician if you experience:: fever over 101, Difficulty voiding, Redness or swelling, Nausea/Vomiting, Shortness of breath, Bleeding, pain uncontrolled by pain medications - Discharge Medications New Aspirin Chew Tab 81 mg PO DAILY #30 tablet Carvedilol [Coreg] 12.5 mg PO BID W/MEALS #60 tablet Rosuvastatin [Crestor] 20 mg PO BEDTIME #30 tablet Continue Clopidogrel [Plavix] 75 mg PO DAILY #30 tablet Furosemide Tab [Lasix Tab] 80 mg PO BID DIURETIC #60 tablet hydrALAZINE TAB [Apresoline Tab] 50 mg PO 0600,1400,2200 #90 tablet Isosorbide Mononitrate [Imdur] 60 mg PO QAM #30 Discontinued Aspirin Chew Tab 81 mg PO DAILY #30 tablet - Follow Up or Referral - Forms/Instructions Exam - Constitutional Vitals: Period Temp Pulse Resp BP Sys/Hurtado Pulse Ox Last 24 Hr 97 F-98.6 F 81-126 18-21 131-153/78-88 83-98 General appearance: normal weight, no acute distress - Head Head exam: Present: normal inspection, normocephalic, atraumatic - Eye Eye exam: Present: EOMI, conjunctival injection Pupils: Present: RENÉ, normal accommodation - ENT ENT exam: Present: normal exam, normal external ear exam, normal oropharynx - Neck Neck exam: Present: normal inspection. Absent: lymphadenopathy, meningismus, thyromegaly - Respiratory Respiratory exam: Present: clear to auscultation bilaterally. Absent: rales, rhonchi, stridor, wheezes - Cardiovascular Cardiovascular exam: Present: regular rate and rhythm. Absent: carotid bruit, diastolic murmur, gallop, JVD, rubs, systolic murmur - GI/Abdominal GI/Abdominal exam: Present: normal bowel sounds, soft - Extremities Exam Extremities exam: Present: normal inspection, normal capillary refill, full ROM , other (Trace right sided weakness). Absent: edema - Neurological Exam Neurological exam: Present: alert, oriented X3, CN II-XII intact - Psychiatric Psychiatric exam: Present: normal affect, normal mood - Skin Skin exam: Present: normal color, warm, dry Discharge Results Procedures and tests throughout hospitalization: CT head obtained on June 01, 2017 without contrast was essentially unremarkable for any acute intracranial process at the time of admission. Chest x-ray obtained on June 01, 2017 was significant for cardiomegaly however, pulmonary vasculature was normal, the lungs oseguera were clear, and no pneumothorax or pleural effusion was noted. Echocardiogram obtained on June 01, 2017 reported sinus rhythm with early repolarization and nonspecific ST-T changes. MRI of the head/brain without contrast was essentially unremarkable for the presence of any acute cerebrovascular accident, transient ischemic attack, epilepsy, and seizures. Labs on day of discharge: Labs from last 24 hours 06/03/17 06/03/17 06/03/17 05:07 05:07 02:00 WBC 4.2 RBC 5.39 Hgb 16.1 Hct 47.0 MCV 87.2 MCH 30 MCHC 34.3 RDW 14.6 Plt Count 173 MPV 10.8 Neut % (Auto) 51.2 Lymph % (Auto) 37.0 [place] % (Auto) 9.9 Eos % (Auto) 1.2 Baso % (Auto) 0.5 Neut # (Auto) 2.2 Lymph # (Auto) 1.6 [place] # (Auto) 0.4 Eos # (Auto) 0.1 Baso # (Auto) 0.0 Immature Gran % 0.2 Nucleated RBC % 0.0 Immature Gran # 0.01 Nucleated RBCs # 0.00 Immature Plt Fraction 0.0 Sodium 140 Potassium 3.2 L Chloride 100 Carbon Dioxide 33 H Anion Gap 10.2 BUN 19 H Creatinine 1.80 H GFR Calculation 70 BUN/Creatinine Ratio 10.00 Glucose 137 H Calculated Osmolality 282.4 Calcium 8.7 Phosphorus 3.4 Magnesium 2.0 Total Bilirubin 0.70 AST 13 ALT 20 Alkaline Phosphatase 88 Total Protein 6.9 Albumin 3.3 L Globulin 3.6 H Albumin/Globulin Ratio 0.9 L Urine Color Urine Appearance Urine pH Ur Specific [place] Urine Protein Urine Glucose (UA) Urine Ketones Urine Blood Urine Nitrate Urine Bilirubin Urine Urobilinogen Urine Leukocytes Ur Culture Indicated? Urine Opiates Screen Negative Ur Barbiturates Screen Negative Ur Phencyclidine Scrn Negative U Amphetamine/Methamph Negative U Benzodiazepines Scrn Negative U Cocaine Metab Screen Negative U Cannabinoids Screen Negative 06/03/17 06/02/17 06/02/17 02:00 04:51 04:51 WBC 4.1 RBC 5.22 Hgb 15.4 Hct 46.0 MCV 88.1 MCH 30 MCHC 33.5 RDW 14.9 Plt Count 168 MPV 11.1 Neut % (Auto) 42.7 Lymph % (Auto) 46.9 [place] % (Auto) 8.8 Eos % (Auto) 1.2 Baso % (Auto) 0.2 Neut # (Auto) 1.7 Lymph # (Auto) 1.9 [place] # (Auto) 0.4 Eos # (Auto) 0.1 Baso # (Auto) 0.0 Immature Gran % 0.2 Nucleated RBC % 0.0 Immature Gran # 0.01 Nucleated RBCs # 0.00 Immature Plt Fraction 0.0 Sodium 140 Potassium 3.4 L Chloride 103 Carbon Dioxide 31 Anion Gap 9.4 BUN 16 Creatinine 1.70 H GFR Calculation 75 BUN/Creatinine Ratio 9.00 Glucose 123 H Calculated Osmolality 280.4 Calcium 8.3 L Phosphorus 3.8 Magnesium 2.0 Total Bilirubin 0.40 AST 11 ALT 19 Alkaline Phosphatase 77 Total Protein 6.3 L Albumin 3.1 L Globulin 3.2 Albumin/Globulin Ratio 0.9 L Urine Color Colorless Urine Appearance Clear Urine pH 7.0 Ur Specific [place] 1.004 Urine Protein Negative Urine Glucose (UA) Negative Urine Ketones Negative Urine Blood Negative Urine Nitrate Negative Urine Bilirubin Negative Urine Urobilinogen < 2.0 H Urine Leukocytes Negative Ur Culture Indicated? Not indicated Urine Opiates Screen Ur Barbiturates Screen Ur Phencyclidine Scrn U Amphetamine/Methamph U Benzodiazepines Scrn U Cocaine Metab Screen U Cannabinoids Screen DS: Provider Date of admission: 06/01/17 18:15 Primary care physician: . No PCP Attending physician on admission: Tim Olivares MD Consults: 06/01/17 18:42 Consult to Physician [CONS] Routine Comment: Consulting Provider: Dirk Luis When should Consulting Provider be notified: In am Person Notified: CAMERON Date Notified: 06/02/17 Time Notified: 08:48 06/02/17 13:56 Consult to Occupational Therapy [CONS] Routine Reason for Occupational Therapy: Evaluate and Treat Discharging clinician: Guanakito Felder CNP
[2017-06-03] MEDS: CLOPIDOGREL 75 MG TABLET PO SCH (10:09)
[2017-06-03] MEDS: FUROSEMIDE 80 MG TABLET PO SCH (10:09)
[2017-06-03] MEDS: CARVEDILOL 12.5 MG TABLET PO SCH (10:09)
[2017-06-03] MEDS: ASPIRIN CHEW 81 MG TABLET PO SCH (10:09)
[2017-06-03] MEDS: ISOSORBIDE MONONITRATE 60 MG TABLET PO SCH (10:09)
[2017-06-03 11:43] VITALS: BP 140/83
== END 2017-06-03 11:50 | disposition home or self-care (01) | DRG 861 ==
LOC: EDUNIT# → EDBD → N.ED 15:55 → N.EDINP 18:15 → SUATTDRO 18:15 → N.2E 19:09
PROVIDERS: ADMIT Hospitalist; ATTEND Hospitalist

== ENCOUNTER 2017-07-15 15:17 | Observation (INO) ==
[2017-07-15] MEDS ORDERED: SODIUM CHLORIDE 0.9% 1,000 ML IV STA (15:30)
[2017-07-15] MEDS ORDERED: ASPIRIN 325 MG TABLET ONE (15:41)
[2017-07-15] MEDS ORDERED: HEPARIN 5,000 UNIT/1 ML VIAL ONE (15:41)
[2017-07-15 15:52] LABS: Basophils % 0.2 % (0.0-0.8); Eosinophils % 0.7 % (0.00-10.9); Hematocrit 50.2 VOL% (42.0-52.0); Hemoglobin 16.9 GM/DL (14.0-18.0); Immature Granulocytes % 0.2 %; Immature Granulocytes Absolute 0.01 #; Lymphocytes # 1.6 10*3/uL (1.4-4.0); Mean Corpuscular HGB Conc 33.7 GM/DL (32-36); Mean Corpuscular Hemoglobin 30 PG (27-34); Mean Corpuscular Volume 87.6 FL (87-102); Mean Platelet Volume 10.4 FL (9.6-12.0); Monocytes # 0.3 10*3/uL (0.11-0.8); Monocytes % 6.6 % (1.7-12.7); Neutrophils # 2.1 10*3/uL (1.4-7.4); Neutrophils % 52.3 % (38.7-73.9); Platelet Count 226 T/CUMM (130-400); Red Blood Count 5.73 MC/CUMM (3.8-5.5); Red Cell Distribution Width 14.1 % (9.3-17.3); White Blood Count 4.1 T/CUMM (4-12)
[2017-07-15] MEDS ORDERED: LIDOCAINE 1% 20 ML VIAL ONE (15:59)
[2017-07-15] MEDS ORDERED: MIDAZOLAM 2 MG/2 ML VIAL ONE (16:02)
[2017-07-15] MEDS ORDERED: fentaNYL 100 MCG/2 ML VIAL ONE (16:02)
[2017-07-15] MEDS ORDERED: NITROGLYCERIN SL 0.4 MG TABLET SL ONE (16:04)
[2017-07-15] MEDS ORDERED: ASPIRIN 325 MG TABLET PO ONE (16:04)
[2017-07-15] MEDS ORDERED: HEPARIN 5,000 UNIT/1 ML VIAL IV ONE (16:05)
[2017-07-15 16:09] LABS: PT Patient Result 10.7 SECS
[2017-07-15 16:17] LABS: Apearance,Urine CLEAR (Clear); Bilirubin,Urine Negative (Negative); Blood, Urine Negative (Negative); Glucose,Urine (UA) Negative (Negative); Ketones,Urine Negative (Negative); Mucus,Urine Occasional /LPF (Occasional); Nitrite,Urine Negative (Negative); Protein,Urine Negative; RBC,Urine <1 /HPF (0-4); Urine Color Straw (Yellow); Urine Specific Gravity 1.004 (1.001-1.035); Urine Urobilinogen < 2.0 EU/DL (0.2-1.0)
[2017-07-15 16:18] LABS: Alanine Aminotransferase 16 U/L (16-61); Albumin 3.8 G/DL (3.4-5.0); Alkaline Phosphatase 87 U/L (45-117); Aspartate Amino Transferase 14 U/L (0-37); Blood Urea Nitrogen 13 MG/DL (7-18); Calcium 9.3 MG/DL (8.5-10.1); Glucose 93 MG/DL (74-106); Magnesium 1.9 MG/DL (1.8-2.4); Osmolality,Calculated 282.1 MOS/KG (273-304); Potassium 3.8 MMOL/L (3.5-5.1); Sodium 142 MMOL/L (136-145); Total Protein 8.1 G/DL (6.4-8.3)
[2017-07-15 16:21] LABS: Troponin I Only 0.099 NG/ML (0.00-0.045)
[2017-07-15] MEDS ORDERED: ALUMINUM/MAGNES/SIMETH MAX STR 30 ML UDCUP PO PRN (16:31)
[2017-07-15] MEDS ORDERED: ACETAMINOPHEN 325 MG TABLET PO PRN (16:31)
[2017-07-15] MEDS ORDERED: ONDANSETRON 4 MG/2 ML VIAL IV PRN (16:31)
[2017-07-15] MEDS ORDERED: SODIUM CHLORIDE 0.9% 1,000 ML IV SCH (17:00)
[2017-07-15] MEDS: CARVEDILOL 12.5 MG TABLET PO SCH (17:33)
[2017-07-16 07:18] LABS: Calcium 8.3 MG/DL (8.5-10.1); Osmolality,Calculated 282.3 MOS/KG (273-304); Potassium 3.4 MMOL/L (3.5-5.1)
[2017-07-16 07:19] LABS: Troponin I Only 0.074 NG/ML (0.00-0.045)
[2017-07-16] MEDS: CARVEDILOL 12.5 MG TABLET PO SCH ×2 (08:07→16:07)
[2017-07-16] MEDS: PANTOPRAZOLE 40 MG TABLET PO SCH (08:07)
[2017-07-16] MEDS: cloNIDine 0.1 MG TABLET PO PRN ×2 (11:28→16:07)
[2017-07-16] MEDS ORDERED: DIAZEPAM 5 MG TABLET PO ONE (12:17)
[2017-07-16] MEDS ORDERED: ceFAZolin 1,000 MG VIAL IRRIG ONE (12:17)
[2017-07-16] MEDS ORDERED: diphenhydrAMINE CAP 25 MG CAPSULE PO ONE (12:17)
[2017-07-16] MEDS ORDERED: ceFAZolin 1,000 MG in SYRINGE 1 EACH IV ONE (12:17)
[2017-07-16] MEDS ORDERED: SODIUM CHLORIDE 0.9% 1,000 ML IV SCH (12:30)
[2017-07-16] MEDS ORDERED: LIDOCAINE 1% 20 ML VIAL ONE (12:54)
[2017-07-16] MEDS ORDERED: MIDAZOLAM 2 MG/2 ML VIAL ONE ×3 (12:54→14:47)
[2017-07-16] MEDS ORDERED: fentaNYL 100 MCG/2 ML VIAL ONE (12:55)
[2017-07-16] MEDS ORDERED: ceFAZolin 1,000 MG VIAL ONE (12:56)
[2017-07-16] MEDS ORDERED: diphenhydrAMINE 50 MG/1 ML VIAL ONE (13:43)
[2017-07-16] MEDS ORDERED: LABETALOL 20 MG/4 ML SYRINGE IV ONE ×2 (13:55→14:28)
[2017-07-16] MEDS ORDERED: HYDROmorphone 2 MG/1 ML VIAL ONE (14:34)
[2017-07-16] MEDS ORDERED: hydrALAZINE 20 MG/1 ML VIAL ONE (14:37)
[2017-07-16] MEDS ORDERED: TISSUE ADHESIVE 1 EACH APPLICATOR TOP ONE ×2 (14:51→15:00)
[2017-07-16] MEDS: POTASSIUM CHLORIDE RIDER 10 MEQ in PREMIX 1 EACH IV SCH ×2 (15:02→15:35)
[2017-07-16] MEDS: FUROSEMIDE 80 MG TABLET PO SCH (16:07)
[2017-07-16] MEDS ORDERED: ROSUVASTATIN 20 MG TABLET PO SCH (21:00)
[2017-07-17] MEDS ORDERED: ISOSORBIDE MONONITRATE 60 MG TABLET PO SCH (09:00)
[2017-07-17] MEDS ORDERED: ASPIRIN CHEW 81 MG TABLET PO SCH (09:00)
[2017-07-17] MEDS ORDERED: CLOPIDOGREL 75 MG TABLET PO SCH (09:00)
[2017-07-17] MEDS: CARVEDILOL 12.5 MG TABLET PO SCH ×2 (10:16→16:31)
[2017-07-17] MEDS: FUROSEMIDE 80 MG TABLET PO SCH ×2 (10:16→15:23)
[2017-07-17] MEDS: PANTOPRAZOLE 40 MG TABLET PO SCH (10:17)
[2017-07-17 16:25] VITALS: BP 136/73
== END 2017-07-17 16:43 | disposition home or self-care (01) ==
LOC: EDBD → EDUNIT# → N.ED 15:17 → N.CL 15:46 → INTOOBSV 16:31 → N.3E 16:47
PROVIDERS: ADMIT Internal Medicine Cardiovascular Disease; ATTEND Internal Medicine Cardiovascular Disease
PROC: CLCCHCL (ICD-10-PCS; 2017-07-15 21:15)
PROC: CLDCICD (2017-07-16 13:45)

== ENCOUNTER 2018-05-12 10:31 | Inpatient (IN) ==
[2018-05-12 11:11] LABS: Basophils % 0.8 % (0.0-0.8); Eosinophils % 1.1 % (0.00-10.9); Hematocrit 46.4 VOL% (42.0-52.0); Hemoglobin 15.3 GM/DL (14.0-18.0); Immature Granulocytes % 0.3 %; Immature Granulocytes Absolute 0.01 #; Lymphocytes # 1.4 10*3/uL (1.4-4.0); Lymphocytes % 38.5 % (21.2-54.2); Mean Corpuscular Hemoglobin 29 PG (27-34); Mean Corpuscular Volume 88.9 FL (87-102); Mean Platelet Volume 10.4 FL (9.6-12.0); Monocytes # 0.3 10*3/uL (0.11-0.8); Monocytes % 8.6 % (1.7-12.7); Neutrophils # 1.8 10*3/uL (1.4-7.4); Neutrophils % 50.7 % (38.7-73.9); Platelet Count 162 T/CUMM (130-400); Red Blood Count 5.22 MC/CUMM (3.8-5.5); White Blood Count 3.6 T/CUMM (4-12)
[2018-05-12 11:29] LABS: Albumin 3.6 G/DL (3.4-5.0); Bilirubin,Total 0.5 MG/DL (0.2-1.0); Calcium 8.6 MG/DL (8.5-10.1); Osmolality,Calculated 281.1 MOS/KG (273-304); Potassium 3.4 MMOL/L (3.5-5.1); Total Protein 7.3 G/DL (6.4-8.3)
[2018-05-12 11:34] LABS: PT Patient Result 10.6 SECS; Partial Thromboplastin Time 35.2 SECS (0-40)
[2018-05-12] MEDS ORDERED: ONDANSETRON 4 MG/2 ML VIAL IV PRN (13:37)
[2018-05-12] MEDS ORDERED: ACETAMINOPHEN 325 MG TABLET PO PRN ×2 (13:37→17:32)
[2018-05-12 13:43] LABS: Apearance,Urine CLEAR (Clear); Bilirubin,Urine Negative (Negative); Blood, Urine Negative (Negative); Glucose,Urine (UA) Negative (Negative); Ketones,Urine Negative (Negative); Mucus,Urine Occasional /LPF (Occasional); Nitrite,Urine Negative (Negative); Protein,Urine 100 MG/DL; RBC,Urine <1 /HPF (0-4); Urine Color Yellow (Yellow); WBC,Urine <1 /HPF (0-6)
[2018-05-12 13:55] LABS: Barbiturates Screen,Urine Negative (Negative); Benzodiazepines Screen,Urine Negative (Negative); Cannabinoid Screen,Urine Positive (Negative); Opiate Screen,Urine Negative (Negative); Phencyclidine Screen,Urine Negative (Negative)
[2018-05-12] MEDS ORDERED: ALUMINUM/MAGNES/SIMETH MAX STR 30 ML UDCUP PO PRN (17:32)
[2018-05-12] MEDS ORDERED: MAGNESIUM HYDROXIDE SUSP 30 ML UDCUP PO PRN (17:32)
[2018-05-12] MEDS: FUROSEMIDE 80 MG TABLET PO SCH (17:48)
[2018-05-12] MEDS: CARVEDILOL 12.5 MG TABLET PO SCH (21:00)
[2018-05-12] MEDS ORDERED: CITALOPRAM 20 MG TABLET PO SCH (21:00)
[2018-05-12] MEDS ORDERED: ROSUVASTATIN 20 MG TABLET PO SCH (21:00)
[2018-05-12] MEDS: SODIUM CHLORIDE 0.65% NASAL SPRAY 45 ML BOTTLE BOTH NARES SCH (21:01)
[2018-05-13 08:08] LABS: Basophils % 0.3 % (0.0-0.8); Eosinophils # 0.1 10*3/uL (0.0-0.87); Eosinophils % 1.9 % (0.00-10.9); Hemoglobin 14.9 GM/DL (14.0-18.0); Immature Granulocytes % 0.3 %; Immature Granulocytes Absolute 0.01 #; Lymphocytes # 1.4 10*3/uL (1.4-4.0); Lymphocytes % 39.1 % (21.2-54.2); Mean Corpuscular HGB Conc 33.1 GM/DL (32-36); Mean Corpuscular Hemoglobin 29 PG (27-34); Mean Corpuscular Volume 88.8 FL (87-102); Monocytes # 0.5 10*3/uL (0.11-0.8); Monocytes % 13.1 % (1.7-12.7); Neutrophils # 1.7 10*3/uL (1.4-7.4); Neutrophils % 45.3 % (38.7-73.9); Platelet Count 173 T/CUMM (130-400); Red Blood Count 5.07 MC/CUMM (3.8-5.5); Red Cell Distribution Width 15.2 % (9.3-17.3); White Blood Count 3.7 T/CUMM (4-12)
[2018-05-13] MEDS: SODIUM CHLORIDE 0.65% NASAL SPRAY 45 ML BOTTLE BOTH NARES SCH ×3 (08:50→16:57)
[2018-05-13] MEDS: CARVEDILOL 12.5 MG TABLET PO SCH ×2 (08:50→16:57)
[2018-05-13] MEDS: FUROSEMIDE 80 MG TABLET PO SCH ×2 (08:50→16:57)
[2018-05-13] MEDS ORDERED: ASPIRIN CHEW 81 MG TABLET PO SCH (09:00)
[2018-05-13 09:02] LABS: Calcium 8.2 MG/DL (8.5-10.1); Osmolality,Calculated 279.3 MOS/KG (273-304); Potassium 3.2 MMOL/L (3.5-5.1); Risk Ratio 4.77; Thyroid Stimulating Hormone 0.633 uIU/ml (0.358-3.74); VLDL CHOLESTEROL 27.4 MG/DL
[2018-05-13] MEDS: POTASSIUM CHLORIDE 20 MEQ TABLET PO PRN ×4 (09:59→16:56)
[2018-05-13 17:32] VITALS: BP 126/76
[2018-05-13] MEDS ORDERED: APIXABAN 2.5 MG TABLET PO SCH (21:00)
== END 2018-05-13 18:51 | disposition home or self-care (01) | DRG 45 ==
LOC: N.ED 10:31 → N.EDINP 13:02 → N.2E 15:53
PROVIDERS: ADMIT Internal Medicine; ATTEND Internal Medicine

== ENCOUNTER 2019-08-31 18:57 | Observation (INO) ==
[2019-08-31] MEDS ORDERED: IBUPROFEN 200 MG TABLET PO STA (19:36)
[2019-08-31] MEDS ORDERED: hydrALAZINE 20 MG/1 ML VIAL IV STA ×2 (19:55→19:56)
[2019-08-31] MEDS ORDERED: IBUPROFEN 400 MG TABLET ONE (19:56)
[2019-08-31 19:59] LABS: Albumin 3.5 G/DL (3.4-5.0); Bilirubin,Total 0.7 MG/DL (0.2-1.0); Calcium 8.4 MG/DL (8.5-10.1); Osmolality,Calculated 286.7 MOS/KG (273-304); Total Protein 7.2 G/DL (6.4-8.3)
[2019-08-31 20:05] LABS: Basophils % 0.3 % (0.0-0.8); Eosinophils % 0.6 % (0.00-10.9); Hematocrit 47.6 VOL% (42.0-52.0); Hemoglobin 15.6 GM/DL (14.0-18.0); Lymphocytes # 1.4 10*3/uL (1.4-4.0); Lymphocytes % 42.1 % (21.2-54.2); Mean Corpuscular HGB Conc 32.8 GM/DL (32-36); Mean Corpuscular Volume 89.5 FL (87-102); Monocytes % 8.9 % (1.7-12.7); Neutrophils % 48.1 % (38.7-73.9); Platelet Count 160 T/CUMM (130-400); Red Blood Count 5.32 MC/CUMM (3.8-5.5); Red Cell Distribution Width 15.3 % (9.3-17.3); White Blood Count 3.4 T/CUMM (4-12)
[2019-08-31 21:59] LABS: Barbiturates Screen,Urine Negative (Negative); Benzodiazepines Screen,Urine Negative (Negative); Cannabinoid Screen,Urine Positive (Negative); Opiate Screen,Urine Negative (Negative); Phencyclidine Screen,Urine Negative (Negative)
[2019-08-31] MEDS ORDERED: ACETAMINOPHEN 500 MG TABLET PO STA (22:19)
[2019-08-31] MEDS ORDERED: NITROGLYCERIN SL 0.4 MG TABLET SL PRN (23:12)
[2019-08-31] MEDS ORDERED: MAGNESIUM SULF RIDER 2 GM in PREMIX 1 EACH IV PRN (23:13)
[2019-08-31] MEDS ORDERED: MAGNESIUM SULF RIDER 4 GM in PREMIX 1 EACH IV PRN (23:13)
[2019-08-31] MEDS ORDERED: cloNIDine 0.1 MG TABLET PO PRN (23:14)
[2019-08-31] MEDS ORDERED: ONDANSETRON 4 MG/2 ML VIAL IV PRN (23:16)
[2019-08-31] MEDS ORDERED: MORPHINE 4 MG/1 ML VIAL IV PRN (23:16)
[2019-08-31] MEDS ORDERED: ACETAMINOPHEN 325 MG TABLET PO PRN (23:16)
[2019-08-31] MEDS ORDERED: NICOTINE 21 MG/24 HR PATCH TRANSDERM PRN (23:16)
[2019-08-31] MEDS ORDERED: DOCUSATE SODIUM 100 MG CAPSULE PO PRN (23:16)
[2019-08-31] MEDS ORDERED: traZODone 50 MG TABLET PO PRN (23:16)
[2019-08-31] MEDS ORDERED: COLCHICINE 0.6 MG CAPSULE PO SCH (23:30)
[2019-08-31] MEDS ORDERED: ENOXAPARIN 40 MG/0.4 ML SYRINGE SUBCUT SCH (23:30)
[2019-09-01] MEDS: carvediloL 12.5 MG TABLET PO SCH ×2 (00:37→09:37)
[2019-09-01] MEDS: POTASSIUM CHLORIDE 20 MEQ TABLET PO PRN ×3 (00:37→04:30)
[2019-09-01] MEDS ORDERED: INFLUENZA VIRUS VACCINE 0.5 ML SYRINGE IM ONE (00:58)
[2019-09-01 04:31] LABS: Basophils % 0.2 % (0.0-0.8); Eosinophils # 0.1 10*3/uL (0.0-0.87); Eosinophils % 1.1 % (0.00-10.9); Hematocrit 47.2 VOL% (42.0-52.0); Hemoglobin 15.4 GM/DL (14.0-18.0); Immature Granulocytes % 0.2 %; Immature Granulocytes Absolute 0.01 #; Lymphocytes % 44.1 % (21.2-54.2); Mean Corpuscular HGB Conc 32.6 GM/DL (32-36); Mean Corpuscular Volume 89.1 FL (87-102); Mean Platelet Volume 10.6 FL (9.6-12.0); Monocytes % 8.1 % (1.7-12.7); Neutrophils % 46.3 % (38.7-73.9); Platelet Count 175 T/CUMM (130-400); Red Cell Distribution Width 15.3 % (9.3-17.3); White Blood Count 4.5 T/CUMM (4-12)
[2019-09-01 05:00] LABS: Calcium 8.4 MG/DL (8.5-10.1); Risk Ratio 5.9; Thyroid Stimulating Hormone 3.17 uIU/ml (0.358-3.74); VLDL CHOLESTEROL 30.8 MG/DL
[2019-09-01] MEDS ORDERED: FUROSEMIDE 80 MG TABLET PO SCH (08:00)
[2019-09-01] MEDS ORDERED: ASPIRIN EC 325 MG TABLET PO SCH (09:00)
[2019-09-01] MEDS ORDERED: amLODIPine 5 MG TABLET PO SCH (09:00)
[2019-09-01 11:34] VITALS: BP 140/87
== END 2019-09-01 16:55 | disposition home or self-care (01) ==
LOC: N.ED 18:57 → N.EDINP 18:57 → N.2W 23:33
PROVIDERS: ADMIT Internal Medicine; ATTEND Internal Medicine